=== PATIENT | female | born 1940 | race Caucasian/White ===

== ENCOUNTER 2024-06-09 11:28 | Inpatient (IN) | payer OTHER, SELFPAY ==
[2024-06-09] VITALS (26 sets, daily range): BP systolic 98–160; BP diastolic 49–85; PULSE 90; O2SAT 95–96; BMI 27.6
--- NOTE | 2024-06-09 07:24 | ED.GENMED ---
History of Present Illness
<MARIBEL Bledsoe - Last Filed: 06/09/24 10:47>
General
Chief Complaint: Musculo-Skeletal Complaint
Source: patient
Exam Limitations: none
Time Seen by Provider: 06/09/24 07:16
Nursing documentation reviewed up to this point in time: agreed with
History of Present Illness
History of Present Illness:
Patient is an 83 old female who was brought by EMS. Patient reports she was walking her dog and tripped and fell landing face first. She tried to break her fall with her left wrist. She complains of left wrist pain and left hip pain. A neighbor
heard her dog crying and called EMS. She is on aspirin no other blood thinners. She denies hitting her head denies any headache but does report she landed face first as well. She is right-hand dominant. She denies any neck pain.
Past History
<MARIBEL Bledsoe - Last Filed: 06/09/24 10:47>
Past History
ED Past Medical History: CAD, HTN, Hypercholesterolemia, NIDDM, NV, Hypothyroidism and Other (Graves' disease)
ED Past Surgical History: Appendectomy, Cardiac (Cardiac stenting, carotid artery angioplasty), Cholecystectomy, Orthopedic (R total hip Replacement) and Tonsilectomy
Social History
Tobacco: Former smoker
Alcohol: Occasional
Drug: None
Personal:
Living: alone
Family History
Family History: Negative Diabetes, Hypertension, Early CAD, Asthma or Cancer
Review of Systems
<MARIBEL Bledsoe - Last Filed: 06/09/24 10:47>
Review of Systems
Allergies reviewed?: Yes
Other source history: family
All Other Systems: ROS reviewed and negative except as documented in HPI and ROS
Constitutional: Reports no symptoms
Respiratory: Reports no symptoms
Cardiac: Reports no symptoms
ABD/GI: Reports no symptoms; Denies nausea or vomiting
: Reports no symptoms
Musculoskeletal: Reports other (Left wrist left hip pain)
Skin: Reports no symptoms
Neurological: Reports no symptoms; Denies headache
Psychiatric: Reports no symptoms
Phy Exam
<MARIBEL Bledsoe - Last Filed: 06/09/24 10:47>
General Physical Exam
General Presentation: no apparent distress
General age: appears stated age
General Skin: warm and dry
General Habitus: elderly
General Mental: alert
General Hydration: appears well hydrated
Cardiovascular Exam
Cardiovascular Exam: regular rate/rhythm, no murmur and normal peripheral pulses
Neurological Exam
Neurological Exam: alert and oriented x3
[place] Coma Scale
Eye Opening: Spontaneous
Verbal Response: Oriented
Motor Response: Obeys Commands
GCS Total Score: 15
Musculoskeletal Exam
Musculoskeletal Exam: other (No obvious head injury no bony C-spine tenderness left wrist with obvious deformity strong pulses ecchymosis tender throughout, no abrasions or lacerations left lower extremity shortened externally rotated pain with any
range of motion normal sensation to both wrist and hip and distal extremties )
Skin Exam
Skin Exam: normal color and warm/dry
Psychiatric Exam
Psychiatric Exam: normal mood/affect
<Ian Bar, DO - Last Filed: 06/09/24 09:50>
[place] Coma Scale
GCS Total Score: 15
Course
<MARIBEL Bledsoe - Last Filed: 06/09/24 10:47>
Orders/Labs/Results
Orders:
Orders
06/09/24 07:16
HYDROmorphone [Dilaudid] 0.5 mg IV NOW STA
Ondansetron Injectable [Zofran] 4 mg IV NOW STA
06/09/24 07:19
CR Hip - LT w/wo Pel 2-3 Vw* Urgent
Comment:
Reason For Exam: s/p fall/pain
Include a pelvis x-ray?: Yes
CR Wrist - Left Min 3 Views Urgent
Comment:
Reason For Exam: s/p fall/pain
06/09/24 07:25
CT Head W/o Iv Contrast Urgent
Comment:
Reason For Exam: trauma
06/09/24 07:26
Electrocardiogram (*1) Stat
Reason for Study: Other
Other Reason for Exam: chest pain
Cardiac Monitoring- Treatment ONCE
EKG- Treatment ONCE
06/09/24 07:30
Basic Metabolic Panel Urgent
Complete Blood Count/With Diff Urgent
06/09/24 08:24
Comprehensive Metabolic Panel Urgent
06/09/24 08:41
HYDROmorphone [Dilaudid] 0.5 mg IV NOW STA
06/09/24 09:16
Propofol [Diprivan] 20 ml .ROUTE .STK-MED
06/09/24 09:47
Wrist, Left 2 Views CR [CR Wrist - Left Min 2 Views] Urgent
Comment:
Reason For Exam: post reduction portable
Abnormal Lab Results
06/09/24 06/09/24
07:30 08:24
RBC 3.68 L 10^6/uL
(4.20-5.40)
Hgb 11.7 L g/dL
(12.0-16.0)
Hct 34.2 L %
(37.0-47.0)
MCH 31.8 H pg
(27.0-31.0)
MPV 11.6 H fL
(7.4-10.4)
Carbon Dioxide 20 L mmol/L
(22-30)
BUN 22 H mg/dl 20 H mg/dl
(7-17) (7-17)
Glucose 112 H mg/dl 113 H mg/dl
(70-99) (70-99)
06/09/24 07:30
06/09/24 08:24
Vital Signs
Initial and Last Documented VS:
Initial Vital Signs
BP
145/62
06/09/24 06:54
Last Documented Vital Signs
Temp Pulse Resp BP Pulse Ox
98.1 F 77 19 110/53 96
06/09/24 10:01 06/09/24 10:01 06/09/24 10:01 06/09/24 10:01 06/09/24 10:01
[employer] consulted with Physician
[employer] consulted with physician?: Yes
Name of Physician Consulted: Yosvany
<Ian Bar, DO - Last Filed: 06/09/24 09:50>
Orders/Labs/Results
Orders:
Orders
06/09/24 07:16
HYDROmorphone [Dilaudid] 0.5 mg IV NOW STA
Ondansetron Injectable [Zofran] 4 mg IV NOW STA
06/09/24 07:19
CR Hip - LT w/wo Pel 2-3 Vw* Urgent
Comment:
Reason For Exam: s/p fall/pain
Include a pelvis x-ray?: Yes
CR Wrist - Left Min 3 Views Urgent
Comment:
Reason For Exam: s/p fall/pain
06/09/24 07:25
CT Head W/o Iv Contrast Urgent
Comment:
Reason For Exam: trauma
06/09/24 07:26
Electrocardiogram (*1) Stat
Reason for Study: Other
Other Reason for Exam: chest pain
Cardiac Monitoring- Treatment ONCE
EKG- Treatment ONCE
06/09/24 07:30
Basic Metabolic Panel Urgent
Complete Blood Count/With Diff Urgent
06/09/24 08:24
Comprehensive Metabolic Panel Urgent
06/09/24 08:41
HYDROmorphone [Dilaudid] 0.5 mg IV NOW STA
06/09/24 09:16
Propofol [Diprivan] 20 ml .ROUTE .STK-MED
06/09/24 09:47
Wrist, Left 2 Views CR [CR Wrist - Left Min 2 Views] Urgent
Comment:
Reason For Exam: post reduction portable
Abnormal Lab Results
06/09/24 06/09/24
07:30 08:24
RBC 3.68 L 10^6/uL
(4.20-5.40)
Hgb 11.7 L g/dL
(12.0-16.0)
Hct 34.2 L %
(37.0-47.0)
MCH 31.8 H pg
(27.0-31.0)
MPV 11.6 H fL
(7.4-10.4)
Carbon Dioxide 20 L mmol/L
(22-30)
BUN 22 H mg/dl 20 H mg/dl
(7-17) (7-17)
Glucose 112 H mg/dl 113 H mg/dl
(70-99) (70-99)
06/09/24 07:30
06/09/24 08:24
Vital Signs
Initial and Last Documented VS:
Initial Vital Signs
BP
145/62
06/09/24 06:54
Last Documented Vital Signs
Temp Pulse Resp BP Pulse Ox
98.1 F 77 19 110/53 96
06/09/24 10:01 06/09/24 10:01 06/09/24 10:01 06/09/24 10:01 06/09/24 10:01
Procedures
<MARIBEL Bledsoe - Last Filed: 06/09/24 10:47>
Splinting/Sling Placement
Left Arm:
Pre-splint extermity exam: neurovascular intact
Type of splint: sugar-tong
Splint material: fiberglass
Splint checked by provider?: Yes
Normal distal neurovascular exam?: Yes
<Ian Bar DO - Last Filed: 06/09/24 09:50>
Moderate Sedation
ASA Risk Score: Class III
Chart and allergies reviewed: Yes
Consent for anesthesia obtained: Yes
Time out completed (validating right patient & procedure): Yes
Moderate Sedation Start Time(when first medication is given): 09:36
History of difficult intubation: No
Airway free of obstruction: Yes
Patient has a gag reflex: Yes
Patient is able to open mouth: Yes
Patient has no dentures: Yes
Patient has no loose teeth: Yes
Medication administered by Provider during Moderate Sedation: IV Propofol (mg)
Total dose administered: 50
Time drug administered: 09:36
Moderate Sedation Procedure End Time: 09:46
Joint/Fracture Reduction
left distal ulna and radial fracture:
Indication for procedure:: left distal ulna and radial fracture
Procedure completed by: Ian Bar DO
Consent form signed: Yes
Joint reduced: with anesthesia sedation
Injury was: closed
Further treatement: needs further treatment
Post reduction exam: stable
Capillary Refill: normal
Peripheral Pulses: radial (left): 2+
<MARIBEL Bledseo - Last Filed: 06/09/24 10:47>
MDM/Problems Addressed
Differential Diagnosis Includes:
Not limited to hip dislocation versus fracture, wrist fracture, head injury
MDM/Problems Addressed:
Patient is an 83-year-old female who lives alone was walking outside with her dog out of her house describes mechanical fall falling face forward. She denies hitting her head however with age CT of head was done and unremarkable. She complains of
left wrist pain and left hip pain. Patient with obvious deformity to left wrist and left hip is shortened and externally rotated.
X-ray of hip confirms left hip fracture(acute comminuted and impacted intertrochanteric fracture of left femur). Wrist x-ray shows acute mildly displaced impacted angulated fracture of distal radius and ulna. Head CT negative. Case reviewed with
orthopedics(patient had previous surgery by Dr. Miller to right hip however this was over 10 to 15 years ago. I did speak with Dr. Lu of [facility] orthopedics however since such length since prior Ortho eval by this group will assign
patient to unassigned Ortho. I did speak with Dr. Santana. He was able to visualize images of films. he does recommend reduction of left wrist. Moderate sedation was given by Dr. Bar and left wrist was successfully reduced.
Regarding hip fracture patient may be able to go to the OR later this morning as she has not needed anything since 3 AM
Patient is on aspirin only no other blood thinners. Family aware of diagnosis and plan of care and/or treatment for hip.
Labs reviewed.
Chronic conditions affecting care:
htn hyperlipidemia diabetes previous NV
<MARIBEL Bledsoe - Last Filed: 06/09/24 10:47>
*Radiology
Radiology exam reviewed: radiology read reviewed
*Pulse Oximetry
Patient hypoxic: no
*Critical Care Note
Total Time (30-74mins, 75-104mins- exclusive of procedures): Not Applicable
<MARIBEL Bledsoe - Last Filed: 06/09/24 10:47>
Patient Management
Discussion with other providers: Brick Paver (DR Santana )
ED Attending Note
<MARIBEL Bledsoe - Last Filed: 06/09/24 10:47>
-
Portions of this chart may have been created with voice recognition software.� Occasional wrong word or��sound alike� substitutions may have occurred due to the inherent limitations of voice recognition software.
<Ian Bar, DO - Last Filed: 06/09/24 09:50>
ED Attending Note
Patient seen and examined by attending physician: Yes
I performed the substantive portion of visit, reviewed & personally made and approve the management plan that is documented in note by myself or ZINA.: Yes
ED Attending Note:
I have seen and evaluated the patient with a [id number] encounter. I have spoken to the advance practicer provider and involved in the medical history, the physical exam, medical decision making.
Evaluation and management service: agree unless noted differently below.
Results interpretation: agree unless noted differently below.
Focused HPI: 83-year-old female presenting with a trip and fall. Patient complaining of left wrist pain and left hip pain. Patient has clear deformity to left leg and left wrist.
Physical exam: Uncomfortable. Deformity to left wrist. Sensation grossly intact. Shortened and rotated left leg but neurovascularly intact
Medical Decision Making: Will obtain hip and wrist x-ray and will likely need sedation for wrist reduction
Discharge Plan
Departure
Patient Disposition: Admit
Date of Disposition: 06/09/24
Time of Disposition: 09:51
Admit to: Med/Surg
Admit to doctor: hospitalist
Presentation/result/management discussed w/ accepting MD/DO: Hospitalist
Patient with high blood pressure during this ER visit?: Yes
Condition: Fair
Covid-19: Not Applicable
Discharge Problem:
Closed fracture of left hip, left wrist fracture
Prescriptions:
No Action
aspirin 81 MG tablet,delayed release (DR/EC)
81 mg PO DAILY
metoprolol tartrate 50 MG tablet
50 mg PO DAILY
alendronate [Fosamax] 70 mg Tablet
70 mg PO WE
Theragen Tablet
1 tab PO DAILY
amlodipine [Norvasc] 5 mg Tablet
5 mg PO DAILY
calcium carbonate [Calcium 600] 600 mg calcium (1,500 mg) Tablet
600 mg PO DAILY
sertraline 50 mg Tablet
50 mg PO DAILY
ICaps AREDS 4,296 mcg-226 mg-90 mg Capsule
1 cap PO BID
cholecalciferol (vitamin D3) [Vitamin D3] 50 mcg (2,000 unit) Tablet
50 mcg PO DAILY
rosuvastatin 10 MG tablet
5 mg PO QPM
Referrals:
Anthony Candelaria, [Family Provider] -
Interventions
Interventions:
*Risk Screen - Suicide Last Done: 06/09/24 07:00
*General Assessment Last Done: 06/09/24 07:00
*Neglect/Abuse Screening Last Done: 06/09/24 07:00
ED- Fall Risk Assessment Last Done: 06/09/24 07:08
*ED COVID-19 Vaccine History Last Done: 06/09/24 07:00
ED-Musculoskeletal Assessment Last Done: 06/09/24 07:08
ED- Neurological Assessment Last Done: 06/09/24 07:08
Discharge Date and Time
Print Language: SLOVENIAN
[2024-06-09] MEDS: DILAUDID 0.5 MG IV ×2 (07:25→08:49)
[2024-06-09] MEDS: ZOFRAN 4 MG IV (07:26)
[2024-06-09 07:48] LABS: % Basophils 0.5 % (0-2); % Eosinophils 2.1 % (0-6); % Immature Granulocytes 0.4 % (0-0.5); % Lymphocytes 33.3 % (20.5-51.1); % Monocytes 7.4 % (1.7-9.3); % Neutrophils 56.3 % (42.2-75.2); Absolute Eosinophils 0.2 10^3/uL (0-0.7); Absolute Lymphocytes 2.6 10^3/uL (1.2-3.4); Absolute Monocytes 0.6 10^3/uL (0.1-0.6); Absolute Neutrophils 4.4 10^3/uL (1.4-6.5); Hematocrit 34.2 % (37.0-47.0); Hemoglobin 11.7 g/dL (12.0-16.0); Mean Corp Hgb Conc. 34.2 g/dL (33.0-37.0); Mean Corpuscular Hgb 31.8 pg (27.0-31.0); Mean Corpuscular Volume 92.9 fL (81.0-99.0); Mean Platelet Volume 11.6 fL (7.4-10.4); Nucleated Red Blood Cells % 0 %; Platelet Count 180 10^3/uL (130-400); Red Blood Cell Count 3.68 10^6/uL (4.20-5.40); White Blood Cell Count 7.8 10^3/uL (4.8-10.8)
[2024-06-09 07:56] LABS: Blood Urea Nitrogen 22 mg/dl (7-17); Calcium 9.8 mg/dl (8.4-10.2); Carbon Dioxide 22 mmol/L (22-30); Chloride 105 mmol/L (98-107); Estimated Creatinine Clearance 41 ml/min; Glucose 112 mg/dl (70-99); Sodium 141 mmol/L (135-145); eGFR > 60.00
[2024-06-09 08:55] LABS: ALT (SGPT) 18 U/L (0-35); AST (SGOT) 28 U/L (14-36); Albumin 4.5 g/dl (3.5-5.0); Alkaline Phosphatase 104 U/L (38-126); Blood Urea Nitrogen 20 mg/dl (7-17); Calcium 9.9 mg/dl (8.4-10.2); Carbon Dioxide 20 mmol/L (22-30); Chloride 106 mmol/L (98-107); Estimated Creatinine Clearance 41 ml/min; Glucose 113 mg/dl (70-99); Sodium 140 mmol/L (135-145); Total Bilirubin 0.9 mg/dl (0.2-1.3); Total Protein 6.5 g/dl (6.3-8.2); eGFR > 60.00
--- NOTE | 2024-06-09 11:10 | HPS.HSE ---
Family Physician
-
Family Physician: Anthony Candelaria
Chief Complaint
-
fall
History of Present Illness
83yo F with PMHx of CAD, CEA, DM controlled on diet, osteoporosis, HTN, graves disease brought to the hospital after the fall w/o LOC, when she tripped while walking with the dog. In ED found L radial and ulnar Fx, that was reduced in ED as well as
comminuted and impacted intertrochanteric Fx of L femur
Medical History
Past Medical History
Past Medical History: Reports Other
Additional Past Medical History:
See HPI
Past Surgical History: Reports None
Social History
Tobacco: Former Smoker
Alcohol: None
Drug: None
Family History
Family History: Not pertinent
Allergies / Home Medications
Allergies reflects when Allergies were last updated in [facility].
Home Medications with original date entered in [facility]
Allergy/Medication List:
Allergies
Allergy/AdvReac Type Severity Reaction Status Date / Time
No Known Allergies Allergy Verified 06/09/24 07:07
Home Medications
aspirin 81 mg tablet,delayed release 81 mg PO DAILY Blood clot prevention/tx 11/12/10
metoprolol tartrate 50 mg tablet 50 mg PO DAILY Blood pressure 06/17/21
alendronate 70 mg tablet (Fosamax) 70 mg PO WE osteoporosis 06/09/24
amlodipine 5 mg tablet (Norvasc) 5 mg PO DAILY blood pressure 06/09/24
calcium carbonate (Calcium 600) 600 mg PO DAILY supplement 06/09/24
cholecalciferol (vitamin D3) 50 mcg (2,000 unit) tablet (Vitamin D3) 50 mcg PO DAILY supplement 06/09/24
rosuvastatin 10 mg tablet 5 mg PO QPM hyperlipidemia 06/09/24
sertraline 50 mg tablet 50 mg PO DAILY depression/anxiety 06/09/24
therapeutic multivitamin 1 tab PO DAILY supplement 06/09/24
vitamins A,C,P-fmei-xjiiwd 4,296 mcg-226 mg-90 mg capsule 1 cap PO BID supplement 06/09/24
Review of Systems
-
History Source: Patient
A 12 point ROS was completed and negative except as noted: Yes
Physical Exam
Vital Signs
Vital Signs
Temp Pulse Resp BP Pulse Ox
97.8 F 75 16 125/49 96
06/09/24 10:30 06/09/24 10:30 06/09/24 10:30 06/09/24 10:30 06/09/24 10:30
Physical Exam
General: No Apparent Distress
HEENT: NormoCephalic
Respiratory: Clear
Cardiac: S1/S2 and Regular Rhythm
GI: Soft, Non Tender and Non Distended
Musculoskeletal: No Clubbing, No Cyanosis and No Edema
Skin: Warm
Neuro: Awake, Alert, Oriented and AO x 3
Psych: Calm
Laboratory Results
-
06/09/24 07:30
06/09/24 08:24
Laboratory Results
Total Bilirubin 0.9 mg/dl (0.2-1.3) 06/09/24 08:24
AST 28 U/L (14-36) 06/09/24 08:24
ALT 18 U/L (0-35) 06/09/24 08:24
Alkaline Phosphatase 104 U/L (38-126) 06/09/24 08:24
Impression/Plan
-
A/P:
#comminuted and impacted intertrochanteric Fx of L femur
#L radial and ulnar Fx
ARISCAT score 1.6% - low risk for postOP pulmonary complications
For cardiac risk with PMHx of CAD and possible FL - recommend cardiology eval for the non-urgent surgery
If surgery is urgent - recommend postOP cardio followup with Echo and telemetry, but my percieved cardiac risk will be inermediate-high
Pain mgmt
Ortho cosnult
PT/OT
cont LUE sling
EKG SR without ST changs or TWI, no concern for ACS
#Fall
Head CT without acute findings
#Hx of NSTEMI vs myocarditis
s/p cardiac cath in 2020 without culpit lesion
cont ASA, BB, statin
#PreDM vs DM
Insulin SS as needed with accuchecks
Check HgbA1c
#Graves disease
check TSH
cont Synthroid
#HLD
#Essential HTN
#Presbycusis
#Anxieety/depression d/o
#Osteoporosis
cont home meds
DVT ppx hep
Full code - discussed with patient
I have spent at least 78min reviewing chart, test results, communication with cosnultants and direct patient care
--- NOTE | 2024-06-09 11:50 | CON.ORTHO ---
Consultation - Orthopedics
History
HPI: 83-year-old female presented to the emergency department status post mechanical fall at home. She was subsequently diagnosed with a left distal radius fracture and a displaced left intertrochanteric femur fracture. She underwent closed
reduction of left wrist the emergency department. She was admitted to the hospitalist service and orthopedics was consulted for further evaluation and treatment. Patient reports manage she is quite active at baseline but does use a cane for
ambulatory assistance. She is independent lives at home by herself. Her daughter is at her bedside this morning. She is complaining of pain in the left hip as well as left wrist although she does report wrist pain is improved since close
reduction. She does have a history of right total hip arthroplasty performed by Dr. Miller in the past.
Allergies / Home Medications
Past medical history: Coronary artery disease, hypertension, hypercholesterolemia, czu-[id number]-rhynwfcij diabetes, NSTEMI, hypothyroidism, Graves'
Past surgical history: Appendectomy, cardiac stent, cholecystectomy, right total hip arthroplasty, tonsillectomy
Social history: Lives alone at home. Former smoker
Family history: Not pertinent
Allergy/AdvReac Type Severity Reaction Status Date / Time
No Known Allergies Allergy Verified 06/09/24 07:07
�Medication �Instructions �Recorded
aspirin 81 mg tablet,delayed 81 mg PO DAILY Blood clot 11/12/10
release prevention/tx
metoprolol tartrate 50 mg tablet 50 mg PO DAILY Blood pressure 06/17/21
alendronate 70 mg tablet (Fosamax) 70 mg PO WE osteoporosis 06/09/24
amlodipine 5 mg tablet (Norvasc) 5 mg PO DAILY blood pressure 06/09/24
calcium carbonate (Calcium 600) 600 mg PO DAILY supplement 06/09/24
cholecalciferol (vitamin D3) 50 50 mcg PO DAILY supplement 06/09/24
mcg (2,000 unit) tablet (Vitamin
D3)
rosuvastatin 10 mg tablet 5 mg PO QPM hyperlipidemia 06/09/24
sertraline 50 mg tablet 50 mg PO DAILY depression/anxiety 06/09/24
therapeutic multivitamin 1 tab PO DAILY supplement 06/09/24
vitamins A,C,V-vgqg-dwvqch 4,296 1 cap PO BID supplement 06/09/24
mcg-226 mg-90 mg capsule
Vital Signs / Lab Results
Temp Pulse Resp BP Pulse Ox
97.8 F 75 16 125/49 96
06/09/24 10:30 06/09/24 10:30 06/09/24 10:30 06/09/24 10:30 06/09/24 10:30
06/09/24 07:30
06/09/24 08:24
10 point review systems reviewed and negative unless otherwise stated
General: Pleasant, no acute distress at rest, hard of hearing
Musculoskeletal left lower extremity
Skin intact, extremity shortened externally rotated
There is palpation of her hip lateral trochanteric flare
No palpable ipsilateral knee effusion
Positive EHL, FHL, ankle dorsiflexion completed flexion
Distal extremity warm and pink
Left upper extremity in sugar-tong splint
Exposed fingers warm sensate and mobile
No other areas of bony tenderness palpation or crepitation of long bones and joints of tissue examination
Diagnostic studies
X-rays left hip reviewed by myself shows a displaced left intertrochanteric femur fracture. X-rays left wrist show intra-articular displaced distal radius fracture with improvement in alignment after closed reduction and splinting
Assessment / Plan
83-year-old female status post mechanical fall with left distal radius fracture status post closed reduction and splinting as well as left displaced intertrochanteric femur fracture. A long detail discussion the patient as well as her family at
bedside regarding diagnosis and treatment options. Specifically regarding the hip, we discussed treatment options. My recommendation proceed with cephalomedullary nail fixation. We discussed risks benefits and alternatives to surgery. Discussed
the usual expected perioperative postoperative course. After discussion verbal consent was obtained we will plan to obtain written informed consent prior to surgery. With regards to left distal radius fracture, I did discussed both surgical and
nonsurgical options with them. They will continue to give some thought. We did discuss the possibility of early mobilization perhaps some improvement with regards to use of a walker immobilization with open reduction terminal fixation compared to
splinting/casting. We will have
further discussion regarding this after operative fixation of the left hip.
Nonweightbearing left lower extremity
Nonweightbearing left upper extremity in splint
N.p.o.
Hold anticoagulation
Medical management per primary team
Plan: 2 OR today for operative fixation left hip fracture and all indicated procedures pending OR availability and medical clearance
--- NOTE | 2024-06-09 13:27 | OR.RPT ---
Operative Report
Operative Report
Anesthesia Type:
Spinal
Operative Indications:
Left intertrochanteric femur fracture
Operative Findings :
Same with impaction and significant comminution
Complications:
None
Implants:
130 degree x 10 mm short gamma nail, 90 mm cephalomedullary lag screw, 35 mm x 5 mm distal interlocking screw
Procedure and Technique:
Insertion left short cephalomedullary nail
INDICATIONS FOR PROCEDURE:
83-year-old patient presented status post mechanical fall with complaints of left hip pain left wrist pain. She was ultimately diagnosed with a displaced left distal radius fracture as well as a displaced left intertrochanteric femur fracture.
She underwent closed reduction of left wrist fracture and orthopedics was consulted for further evaluation and treatment. I had a long discussion with the patient as well as her daughters at bedside regarding diagnosis and treatment options.
Ultimately surgical intervention was recommended. We discussed risks benefits and alternatives. We discussed the usual and expected perioperative postoperative course. After discussion written informed consent was obtained.
OPERATIVE PROCEDURE:
Patient was seen and identified in the preoperative holding area. Operative extremity was marked. Patient was taken to the operating room and provided anesthesia by the anesthesia team. Placed supine on fracture table. Nonoperative extremity was
placed in a scissored position and padded with a gel pad to the contralateral post of the fracture table. Operative extremity was placed in a well-padded fracture boot. Biplanar fluoroscopy confirmed appropriate reduction after axial traction,
adduction and slight internal rotation of the fracture. There is noted to be marked impaction and comminution. operative extremity was then prepped and draped in normal sterile fashion. Timeout was performed again identifying the operative
extremity correctly. Preoperative antibiotics were addressed.
Approximately 5 cm incision was made 2 fingerbreadths proximal to the greater trochanter. Sharp dissection was carried through skin and subcutaneous tissues deep fascial layers. Guidepin was then inserted under biplanar fluoroscopic guidance
through the greater trochanter in accordance with the implants operative technique. This was inserted to a depth just distal to the lesser trochanter. Proximal opening reamer was then utilized. A 130 degree short nail was then inserted to the
appropriate depth. Trocar was then inserted through the aiming arm. Sharp dissection was then carried through skin and subcutaneous tissues as well as deep fascial layers. Guidewire was inserted through the trocar into the femoral neck and head.
Appropriate position was confirmed under biplanar fluoroscopy. Attention was made to minimize the tip apex distance. Measurements were obtained for the cephalomedullary screw. Cannulated drill was then drilled to the appropriate depth followed by
the insertion of cannulated cephalomedullary screw. Appropriate final position of the screw within the confines of the femoral neck and head were confirmed again on biplanar fluoroscopy. Setscrew was deployed. There is noted to be mild valgus
alignment of the fracture which was acceptable. Additional trocar was then inserted through the aiming arm for the distal interlocking screw. Sharp dissection was carried through skin, subcutaneous tissues and deep fascial layers. Appropriate
length interlocking screw was then drilled and inserted. Final appropriate positioning was confirmed again on biplanar fluoroscopy. Satisfied with the extent of surgery, wounds were copiously irrigated with normal saline solution and closed in a
layered fashion utilizing 0 Vicryl for deep fascial layer, 2-0 Vicryl for subcu cutaneous layer and elisa for skin. Aquacel dressings were applied. Anesthesia was reversed and patient was taken to the operating room in stable condition.
Postoperative plans include weightbearing to the patient's tolerance operative extremity. Recommend Lovenox renally dosed x 28 days daily for DVT prophylaxis. Will have further discussion with the patient and family regarding definitive treatment
for left distal radius fracture.
Disposition:
PACU stable condition
[2024-06-09 13:31] LABS: Glucose - Point of Care 124 mg/dl (70-99)
[2024-06-09] MEDS: NOVOLOG FLEXPEN-LOW RESISTANCE SC (14:00)
[2024-06-09] MEDS: NSS 1000 IV (14:11)
--- NOTE | 2024-06-09 14:16 | CON.CAR ---
Addendum entered and electronically signed by Anthony Alvarez MD 06/09/24 17:06:
I saw and examined the patient.
The HEAD OF BUSINESS DEVELOPMENT's note was reviewed and I agree with the note.
83-year-old woman with history of coronary artery disease, previous history of coronary stenting (most recent cath 2020 with patent stent and nonobstructive CAD), hypertension and diabetes who was walking her dog and states she tripped due to a high
curb. No syncope. She sustained fracture of left wrist and left hip. She underwent reduction of left wrist fracture and gamma nail to the left hip by Ortho. We are asked to see postoperatively due to past history of coronary disease noted above
patient with no complaints of chest pain or shortness of breath no palpitations lightheadedness or dizziness. Currently hemodynamically stable
-Continue aspirin
-Continue metoprolol
-Monitor on telemetry.
Original Note:
Consultation
Consultation Request
Date/Time Consultation Requested: 06/09/2024 10:30
Date/Time Consultation Performed: 06/09/2024 14:00
Requesting Provider: Dr. De La Rosa
Performing Provider: MARIBEL Hebert for Dr. Alvarez
Reason for Consultation: Preop risk assessment
Medical History
-
Chief Complaint: Mechanical fall with left wrist and left hip pain
History of Present Illness:
Faith Martinez is an 83-year-old female (known to Dr. Solano, her primary superintendent container terminal), with coronary artery disease, hypertension, dyslipidemia, type 2 diabetes mellitus, Graves' disease, osteoporosis, and ambulatory dysfunction who presented
to the emergency department this morning after she sustained a mechanical fall. She was walking her dog (18 year old Guillermo [employer] named Mikayla) when she tripped. She endorsed left wrist and left hip pain. Her wrist was reduced in the
emergency department. It is currently in a sling. She is currently status post gamma nail to the left hip. She is having no chest pain or shortness of breath.
Past Medical History
Past Medical History: CAD, HTN, Hypercholesterolemia, Hyperthyroidism (Graves' disease), NIDDM and Other (Osteoporosis, ambulatory dysfunction)
Past Surgical History: Appendectomy, Cholecystectomy and Orthopedic (Hip replacement)
Social History
Tobacco: Former Smoker
Alcohol: None
Drug: None
Living: Alone
Employment: Retired
Family History
Family History: Reviewed & Not Pertinent
Allergies / Home Medications
Allergy/AdvReac Type Severity Reaction Status Date / Time
No Known Allergies Allergy Verified 06/09/24 07:07
�Medication �Instructions �Recorded �Confirmed �Type
aspirin 81 mg tablet,delayed 81 mg PO DAILY Blood clot 11/12/10 06/09/24 History
release prevention/tx
metoprolol tartrate 50 mg tablet 50 mg PO DAILY Blood pressure 06/17/21 06/09/24 History
alendronate 70 mg tablet (Fosamax) 70 mg PO WE osteoporosis 06/09/24 06/09/24 History
amlodipine 5 mg tablet (Norvasc) 5 mg PO DAILY blood pressure 06/09/24 06/09/24 History
calcium carbonate (Calcium 600) 600 mg PO DAILY supplement 06/09/24 06/09/24 History
cholecalciferol (vitamin D3) 50 50 mcg PO DAILY supplement 06/09/24 06/09/24 History
mcg (2,000 unit) tablet (Vitamin
D3)
rosuvastatin 10 mg tablet 5 mg PO QPM hyperlipidemia 06/09/24 06/09/24 History
sertraline 50 mg tablet 50 mg PO DAILY depression/anxiety 06/09/24 06/09/24 History
therapeutic multivitamin 1 tab PO DAILY supplement 06/09/24 06/09/24 History
vitamins A,C,E-vupw-abacoz 4,296 1 cap PO BID supplement 06/09/24 06/09/24 History
mcg-226 mg-90 mg capsule
Review of Systems
-
History Source: Patient
All other systems: Negative unless noted
Constitutional: No Symptoms
EENT: No Symptoms
Respiratory: No Symptoms
Cardiac: No Symptoms
Abdomen/GI: No Symptoms
: No Symptoms
Musculoskeletal: Joint Pain (Left wrist and left hip)
Skin: No Symptoms
Neurological: No Symptoms
Endocrine: No Symptoms
Hematologic/Lymphatic: No Symptoms
Physical Exam
Vital Signs
Temp Pulse Resp BP Pulse Ox
97.2 F 78 16 129/54 98
06/09/24 14:05 06/09/24 14:15 06/09/24 14:15 06/09/24 14:00 06/09/24 14:05
Lab Results
06/09/24 07:30
06/09/24 08:24
Physical Exam
General: Well Developed, Well Nourished, No Apparent Distress and Comfortable
HEENT: Normocephalic and Anicteric
Respiratory: Clear and Non Labored Respirations
Cardiac: S1/S2 and Regular Rhythm; Negative Peripheral Edema
Breast: Deferred by me
GI: Soft, Non Tender, Non Distended and Normal Bowel Sounds
Rectal: Deferred by Provider
Genito-urinary: No Costovertebral Tender
Musculoskeletal: No Clubbing, No Cyanosis and No Edema
Skin: Warm and Dry
Neuro: AO x 3
Hematologic/Lymphatic: No Lymphadenopathy
Psych: Calm
Impression / Plan
-
Mechanical fall with left wrist fracture status post left wrist reduction
Mechanical fall with left hip fracture status post cephalomedullary nail
CAD
-SHIRLEY to RCA
-Stable without chest pain
-Continue aspirin
Hypertension, on amlodipine and metoprolol tartrate (confirmed with her this is once daily)
Dyslipidemia, during her prior hospitalization we recommended she increase her rosuvastatin to 10 mg daily, goal LDL <70
Type 2 diabetes mellitus, HbA1c pending, per primary
Former smoker, quit 2019, continue full cessation
Graves' disease
Data Reviewed
-
EKG: Report Reviewed by me (Sinus rhythm with sinus arrhythmia, rate 69)
Radiology: Report Reviewed by me (Wrist: Acute, mildly displaced, impacted, and angulated fractures of the distal radius and ulna as detailed above. No dislocation; Left hip: Acute comminuted and in impacted intertrochanteric fracture of the left
femur. No dislocation.)
Labs: Labs Reviewed by me
Old Records: Reviewed
[2024-06-09] MEDS: TYLENOL 650 MG PO (15:01)
--- NOTE | 2024-06-09 15:40 | PTCARENOTE ---
Pt received from the PACU via bed. Transport was w/o incident. Pt is AAOx3, VENETIE IRA, HR bounding sl Tachy at 108 apically, Resp. easy, pulse ox 100% on 2L via nc. Pt's left hip and left upper thigh with Primaseal dressings scant bloody drainage noted on
each. No new current bleeding noted. Pt's left arm with Michael wrap and sling intact. VSS, Pt is afebrile. Pt instructed on plan of care. Pt verbalized understanding of instructions. Call san is within reach.
[2024-06-09 17:34] LABS: Free T4 1.71 ng/dl (0.78-2.19)
[2024-06-09 17:39] LABS: Glucose - Point of Care 183 mg/dl (70-99)
[2024-06-09] MEDS: ANCEF 5 IV (17:41)
[2024-06-09] MEDS: CRESTOR 5 MG PO (17:46)
[2024-06-09] MEDS: ROXICODONE 10 MG PO ×2 (17:46→23:35)
[2024-06-09] MEDS: NOVOLOG FLEXPEN-LOW RESISTANCE 1 UNITS SC (17:47)
[2024-06-09] MEDS: COLACE 100 MG PO (20:48)
[2024-06-09] MEDS: NSS IV (21:15)
[2024-06-09 21:35] LABS: Glucose - Point of Care 250 mg/dl (70-99)
[2024-06-10] VITALS (7 sets, daily range): BP systolic 109–128; BP diastolic 57–75; PULSE 90; O2SAT 95
[2024-06-10] MEDS: ANCEF 5 IV (02:48)
[2024-06-10] MEDS: DILAUDID 0.25 MG IV (02:49)
[2024-06-10 07:22] LABS: Glucose - Point of Care 147 mg/dl (70-99)
[2024-06-10 07:49] LABS: ALT (SGPT) 52 U/L (0-35); AST (SGOT) 81 U/L (14-36); Albumin 3.8 g/dl (3.5-5.0); Alkaline Phosphatase 91 U/L (38-126); Blood Urea Nitrogen 26 mg/dl (7-17); Calcium 8.7 mg/dl (8.4-10.2); Carbon Dioxide 22 mmol/L (22-30); Chloride 102 mmol/L (98-107); Estimated Creatinine Clearance 37 ml/min; Glucose 143 mg/dl (70-99); HDL Cholesterol 71 mg/dl; LDL Cholesterol, Calculated 55 mg/dl; Magnesium 2.1 mg/dl (1.6-2.3); Potassium 4.3 mmol/L (3.5-5.1); Sodium 137 mmol/L (135-145); Total Bilirubin 0.5 mg/dl (0.2-1.3); Total Cholesterol 143 mg/dl (50-199); Total Protein 5.8 g/dl (6.3-8.2); Triglyceride 87 mg/dl (10-149); Very Low Density Lipoprotein 17 mg/dl (0-30); eGFR 55.21
[2024-06-10 07:54] LABS: % Basophils 0.1 % (0-2); % Immature Granulocytes 0.6 % (0-0.5); % Lymphocytes 8.7 % (20.5-51.1); % Monocytes 9.3 % (1.7-9.3); % Neutrophils 81.3 % (42.2-75.2); Absolute Immature Granulocytes 0.1 10^3/uL (0-0.05); Absolute Lymphocytes 0.9 10^3/uL (1.2-3.4); Absolute Neutrophils 8.7 10^3/uL (1.4-6.5); Hematocrit 27.2 % (37.0-47.0); Mean Corp Hgb Conc. 33.1 g/dL (33.0-37.0); Mean Corpuscular Hgb 31.4 pg (27.0-31.0); Mean Corpuscular Volume 94.8 fL (81.0-99.0); Mean Platelet Volume 11.8 fL (7.4-10.4); Nucleated Red Blood Cells % 0 %; Platelet Count 141 10^3/uL (130-400); Red Blood Cell Count 2.87 10^6/uL (4.20-5.40); Red Cell Dist. Width 14.1 % (11.5-14.5); White Blood Cell Count 10.7 10^3/uL (4.8-10.8)
[2024-06-10] MEDS: NOVOLOG FLEXPEN-LOW RESISTANCE SC ×3 (08:02→15:41)
--- NOTE | 2024-06-10 08:39 | W.PN.CD ---
Today's Communication / Plan
-
Cardiology will sign off
Impression / Plan
-
Mechanical fall with left wrist and hip fracture status post left wrist reduction and cephalomedullary nail
- No cardiac complication detected
Acute procedural blood loss anemia, hip fx w/o surgery will also be associated with bleeding
Sinus tach
- Likely from pain and anemia
- treatment is to treat the anemia and the pain
CAD
-Remote SHIRLEY to RCA
-Stable without chest pain
-Continue aspirin
Hypertension, on amlodipine and metoprolol tartrate (confirmed with her this is once daily)
Dyslipidemia, during her prior hospitalization we recommended she increase her rosuvastatin to 10 mg daily, goal LDL <70
Type 2 diabetes mellitus, HbA1c pending, per primary
Former smoker, quit 2019, continue full cessation
Graves' disease
Subjective:
No CP.
Physical Exam
Vital Signs/Labs
Vital Signs
Temp Pulse Resp BP Pulse Ox
97.4 F 122 14 118/74 98
06/10/24 07:39 06/10/24 07:39 06/10/24 07:39 06/10/24 07:39 06/10/24 07:39
06/09/24 06/10/24 06/11/24
06:59 06:59 06:59
Actual Weight 68.5 kg
06/10/24 05:17
06/10/24 05:17
Magnesium 2.1 mg/dl (1.6-2.3) 06/10/24 05:17
Triglycerides 87 mg/dl (10-149) 06/10/24 05:17
LDL Cholesterol, Calc 55 mg/dl 06/10/24 05:17
VLDL Cholesterol, Calc 17 mg/dl (0-30) 06/10/24 05:17
HDL Cholesterol 71 mg/dl 06/10/24 05:17
TSH 5.90 uIU/ml (0.47-4.68) H 06/09/24 08:24
Free T4 1.71 ng/dl (0.78-2.19) 06/09/24 08:24
Physical Exam
Constitutional: No acute distress
Cardiovascular: Rhythm & rate is regular and Pedal edema is absent
Respiratory: Respiratory effort normal and Lungs clear to auscul.
GI: Soft and Non tender
Neuro/Psych: Alert
Data Reviewed
-
Date of Service: June 10, 2024
[2024-06-10 08:48] LABS: Glycohemoglobin (HgbA1c) 5.7 % (4.0-5.6)
[2024-06-10] MEDS: ASPIR LOW (ENTERIC COATED) 81 MG PO (09:16)
[2024-06-10] MEDS: NORVASC 5 MG PO (09:16)
[2024-06-10] MEDS: COLACE 100 MG PO ×2 (09:16→20:26)
[2024-06-10] MEDS: LOPRESSOR 50 MG PO (09:17)
[2024-06-10] MEDS: OSCAL CAL 500 500 MG PO (09:17)
[2024-06-10] MEDS: THERAGRAN 1 TABLET PO (09:17)
[2024-06-10] MEDS: LOVENOX 40 MG SC (09:17)
[2024-06-10] MEDS: ZOLOFT 50 MG PO (09:18)
[2024-06-10] MEDS: VITAMIN D3 (cholecalciferol) 50 MCG PO (09:18)
[2024-06-10] MEDS: ROXICODONE 10 MG PO ×2 (09:19→20:47)
[2024-06-10] MEDS: NSS IV (10:00)
--- NOTE | 2024-06-10 11:29 | W.PN.ORTHO ---
Today's Communication / Plan
-
83-year-old female postop day 1 status post left cephalomedullary nail fixation intertrochanteric femur fracture with left distal radius fracture and sugar-tong splint
Weightbearing as tolerated left lower extremity
PT OT
DVT prophylaxis: Recommend renally dosed Lovenox x 28 days
Medical management per primary team
Pain control
Nonweightbearing left upper extremity in splint and sling
I had a long detail discussion with the patient as well as the daughter at bedside regarding definitive treatment for left distal radius fracture. We discussed both conservative and surgical options. I would suspect that she would have a
reasonable outcome with the current alignment is relatively neutral postreduction on lateral views. We did discuss surgical fixation as well and we discussed that this might facilitate her recovery mobilization with physical therapy allow her to
mobilize her wrist and elbow sooner. After discussion both the patient and daughter elected to proceed with surgical intervention. We discussed risks benefits and alternatives of surgery. We discussed the usual expected perioperative
postoperative course. No guarantees were given. After discussion verbal consent was obtained for open reduction internal fixation left distal radius/ulna fractures. Will plan to obtain written informed consent prior to procedure
N.p.o. midnight
Please hold DVT prophylaxis in a.m. in preparation for OR
Plan: 2 OR tomorrow for open reduction term fixation left distal radius/ulna fractures and all indicated procedures pending OR availability and medical clearance.
Subjective
.
.:
Patient resting comfortably in bed this morning. Daughter at bedside. Patient hard of hearing but conversant.
Vital Signs and Labs
.
Vital Signs and Labs:
Lab Results
06/10/24 05:17
06/10/24 05:17
Temp Pulse Resp BP Pulse Ox
97.7 F 78 14 121/57 98
06/10/24 11:09 06/10/24 11:09 06/10/24 11:09 06/10/24 11:09 06/10/24 11:09
Physical Exam
-
Musculoskeletal left lower extremity
Moderate bloody drainage dressings
Moderate swelling thigh
Leg lengths equal
Positive EHL, FHL, ankle dorsiflexion and plantarflexion
Distal extremity warm and pink
Left upper extremity
Sugar-tong splint in place
Exposed fingers warm sensate mobile
Brisk cap refill
[2024-06-10 12:38] LABS: Glucose - Point of Care 122 mg/dl (70-99)
--- NOTE | 2024-06-10 12:43 | W.PN.HOSP.TC ---
Today's Communication/Plan
-
pending further OP
follow H&H q12h
Assessment / Plan
Assessment / Plan
83yo F with PMHx of CAD s/p PCI, CEA, DM controlled on diet, osteoporosis, HTN, graves disease brought to the hospital after the fall w/o LOC, when she tripped while walking with the dog. In ED found L radial and ulnar Fx, that was reduced in ED as
well as comminuted and impacted intertrochanteric Fx of L femur. S/P L katt on 06/09/24 and planned for wrist repair on 06/11/24
A/P:
#comminuted and impacted intertrochanteric Fx of L femur
#L radial and ulnar Fx
Pain mgmt
Ortho cosnult: s/p Insertion left short cephalomedullary nail on 06/09/24
PT/OT: WB to tolerrance
cont LUE sling, pending Sx
#Acute blood loss anemia 2/2 Fx and surgery
FOllow Hgb, watch L hip for bruising, transfuse as needed
#Fall
Head CT without acute findings
#CAD, s/p PCI
s/p cardiac cath in 2020 without culpit lesion
cont ASA, BB, statin
Cardio: cont ASA, no additional perior postOP mgmt
#PreDM vs DM
Insulin SS as needed with accuchecks
Check HgbA1c
#Graves disease
check TSH
cont Synthroid
#HLD
#Essential HTN
#Presbycusis
#Anxiety/depression d/o
#Osteoporosis
cont home meds
DVT ppx lovenox
Full code - discussed with patient
I have spent at least 38min reviewing chart, test results, communication with cosnultants and direct patient care
Anticipated Discharge: > 48 hours
Subjective/Interval History
-
Date of Service: June 10, 2024
Objective Data
-
Labs:
Laboratory Results
06/10/24
05:17
WBC 10.7
Hgb 9.0 L D
Hct 27.2 L
Plt Count 141 D
Sodium 137
Potassium 4.3
Chloride 102
Carbon Dioxide 22
BUN 26 H
Creatinine 1.0
Glucose 143 H
Calcium 8.7
Total Bilirubin 0.5
AST 81 H
ALT 52 H
Alkaline Phosphatase 91
Vital Signs:
Vital Signs
Temp Pulse Resp BP Pulse Ox
97.7 F 78 14 121/57 98
06/10/24 11:09 06/10/24 11:09 06/10/24 11:09 06/10/24 11:09 06/10/24 11:09
I&O
06/09/24 06/10/24 06/11/24
06:59 06:59 06:59
Intake Total 830 / 830
Balance 830 / 830
Review of Systems
-
Unable to obtain full review of systems at this time due to: Dementia
History Source: Patient
Physical Exam
-
General: No Apparent Distress
HEENT: Normocephalic and Hearing Impaired
Respiratory: Clear to Auscultation
Cardiac: Regular Rhythm
Musculoskeletal: No Clubbing, No Cyanosis and No Edema
Neuro: Awake, Alert, Oriented and AO x 3
Psych: Calm
--- NOTE | 2024-06-10 13:11 | CM ---
Spoke with patient's daughter, Cindy # [phone], via phone to discuss discharge plan
Explained that PT/OT recommended short term long term facility; daughter is agreeable with DC plan; SNF options discussed; Daughter' preference is [facility]
Referral sent via [facility]
Plan: discharge to SNF when medically stable; pending bed availability and AUTH approval
--- NOTE | 2024-06-10 13:18 | CM ---
Initial Assessment completed with daughter, Cindy Gutierrez # [phone]
Pharmacy: [facility] @ [address] [place] [address]
Daughter reported that patient lives alone in a one floor home; 1 step to enter via front door; bath has walk-in shower with grab bar and built in seat
Daughter reported that prior to Fall, patient was independent with ADLs; ambulated occasionally with a cane; does not Drive
[facility]; [facility]
Explained to daughter that PT/OT recommended short term [facility] facility; daughter is agreeable with DC plan; SNF options discussed; Daughter' preference is [facility]
Referral sent via [facility]
Plan: discharge to SNF when medically stable; pending bed availability and AUTH approval
[2024-06-10] MEDS: MORPHINE SULFATE 1 MG IV (13:20)
[2024-06-10 15:44] LABS: Glucose - Point of Care 136 mg/dl (70-99)
[2024-06-10 17:24] LABS: Glucose - Point of Care 237 mg/dl (70-99)
[2024-06-10] MEDS: CRESTOR 5 MG PO (18:32)
[2024-06-10 19:46] LABS: Hematocrit 23.8 % (37.0-47.0); Hemoglobin 8.1 g/dL (12.0-16.0)
[2024-06-10 21:45] LABS: Glucose - Point of Care 163 mg/dl (70-99)
[2024-06-11] VITALS (21 sets, daily range): BP systolic 101–141; BP diastolic 53–90
[2024-06-11] MEDS: DILAUDID 0.25 MG IV (02:34)
[2024-06-11 05:54] LABS: Glucose - Point of Care 150 mg/dl (70-99)
[2024-06-11] MEDS: NOVOLOG FLEXPEN-LOW RESISTANCE 1 UNITS SC ×2 (06:19→17:15)
[2024-06-11 06:25] LABS: % Basophils 0.3 % (0-2); % Eosinophils 1.3 % (0-6); % Immature Granulocytes 0.5 % (0-0.5); % Lymphocytes 13.4 % (20.5-51.1); % Monocytes 9.5 % (1.7-9.3); Absolute Eosinophils 0.2 10^3/uL (0-0.7); Absolute Immature Granulocytes 0.1 10^3/uL (0-0.05); Absolute Lymphocytes 1.5 10^3/uL (1.2-3.4); Absolute Monocytes 1.1 10^3/uL (0.1-0.6); Absolute Neutrophils 8.4 10^3/uL (1.4-6.5); Hematocrit 22.8 % (37.0-47.0); Hemoglobin 7.6 g/dL (12.0-16.0); Mean Corp Hgb Conc. 33.3 g/dL (33.0-37.0); Mean Corpuscular Hgb 31.7 pg (27.0-31.0); Mean Platelet Volume 11.5 fL (7.4-10.4); Nucleated Red Blood Cells % 0 %; Platelet Count 114 10^3/uL (130-400); Red Cell Dist. Width 13.8 % (11.5-14.5); White Blood Cell Count 11.2 10^3/uL (4.8-10.8)
[2024-06-11 06:34] LABS: ALT (SGPT) 31 U/L (0-35); AST (SGOT) 51 U/L (14-36); Albumin 3.3 g/dl (3.5-5.0); Alkaline Phosphatase 101 U/L (38-126); Blood Urea Nitrogen 24 mg/dl (7-17); Calcium 8.7 mg/dl (8.4-10.2); Carbon Dioxide 24 mmol/L (22-30); Chloride 100 mmol/L (98-107); Estimated Creatinine Clearance 41 ml/min; Glucose 132 mg/dl (70-99); Potassium 4.2 mmol/L (3.5-5.1); Sodium 134 mmol/L (135-145); Total Bilirubin 0.4 mg/dl (0.2-1.3); Total Protein 5.5 g/dl (6.3-8.2); eGFR > 60.00
--- NOTE | 2024-06-11 07:43 | W.PN.HOSP.TC ---
Today's Communication/Plan
-
for L wrist Sx
transfuse and follow Hgb
wean off O2
Assessment / Plan
Assessment / Plan
83yo F with PMHx of CAD s/p PCI, CEA, DM controlled on diet, osteoporosis, HTN, graves disease brought to the hospital after the fall w/o LOC, when she tripped while walking with the dog. In ED found L radial and ulnar Fx, that was reduced in ED as
well as comminuted and impacted intertrochanteric Fx of L femur. S/P L katt on 06/09/24 and planned for wrist repair on 06/11/24. Developed postOP anemia
A/P:
#comminuted and impacted intertrochanteric Fx of L femur
#L radial and ulnar Fx
Pain mgmt
Ortho cosnult: s/p Insertion left short cephalomedullary nail on 06/09/24
PT/OT: WB to tolerrance
cont LUE sling, pending Sx
#Acute blood loss anemia 2/2 Fx and surgery
1 unit PRBC ordered on 06/11/24 - hip remained wityout significant bruising or swelling
Anemia w/u, incluidng FOBT pending
Follow Hgb, watch L hip for bruising, transfuse as to keep Hgb > 8 (hx of cardiac stent)
PPI for PUD ppx
#Acute hypoxic insufficiency
most likely 2/2 anesthesia, possible atelectasis
Chest XR pending
Incentive spirometry
#Fall
Head CT without acute findings
#CAD, s/p PCI
s/p cardiac cath in 2020 without culpit lesion
cont ASA, BB, statin
Cardio: cont ASA, no additional perior postOP mgmt
#PreDM vs DM
Insulin SS as needed with accuchecks
Check HgbA1c
#Hx of Graves disease
TSH mildly elevated to 5.9 - can be normal for the age (less then 7.0), normal FT4
not on Synthroid
#HLD
#Essential HTN
#Presbycusis
#Anxiety/depression d/o
#Osteoporosis
cont home meds
DVT ppx Lovenox as per ortho
Full code - discussed with patient
I have spent at least 38min reviewing chart, test results, communication with consultants and direct patient care
Anticipated Discharge: > 48 hours
Subjective/Interval History
-
Date of Service: June 11, 2024
Objective Data
-
Labs:
Laboratory Results
06/10/24 06/11/24
19:41 05:45
WBC 11.2 H
Hgb 8.1 L 7.6 L
Hct 23.8 L 22.8 L
Plt Count 114 L
Sodium 134 L
Potassium 4.2
Chloride 100
Carbon Dioxide 24
BUN 24 H
Creatinine 0.9
Glucose 132 H
Calcium 8.7
Total Bilirubin 0.4
AST 51 H
ALT 31
Alkaline Phosphatase 101
Vital Signs:
Vital Signs
Temp Pulse Resp BP Pulse Ox
97.8 F 100 18 140/74 98
06/11/24 03:17 06/11/24 03:17 06/11/24 03:17 06/11/24 03:17 06/11/24 03:17
I&O
06/10/24 06/11/24 06/12/24
06:59 06:59 06:59
Intake Total 830 / 830 960 / 960
Balance 830 / 830 960 / 960
Review of Systems
-
History Source: Patient
All other systems: Reviewed and negative
Musculoskeletal: Reports Other (L hip pain, L wrist pain)
Physical Exam
-
General: No Apparent Distress
HEENT: Hearing Impaired
Respiratory: Clear to Auscultation
Cardiac: Regular Rhythm
GI: Soft, Nontender and Nondistended
Musculoskeletal: No Clubbing, No Cyanosis and No Edema
Skin: Warm
Neuro: Awake, Alert and Oriented
Psych: Calm and Apparent Dementia
[2024-06-11 07:50] LABS: Glucose - Point of Care 132 mg/dl (70-99)
[2024-06-11 08:32] LABS: Reticulocyte Count 3.1 % (0.4-2.8)
[2024-06-11 08:42] LABS: Iron 26 ug/dl (37-170); LDH 172 U/L (120-246)
[2024-06-11 08:52] LABS: Percent Saturation 10 % (20-50); Total Iron Binding Capacity 249 ug/dl (265-497)
[2024-06-11] MEDS: PROTONIX IV 40 MG IV (09:16)
[2024-06-11] MEDS: NORVASC 5 MG PO (09:16)
[2024-06-11] MEDS: ASPIR LOW (ENTERIC COATED) 81 MG PO (09:16)
[2024-06-11] MEDS: ZOLOFT 50 MG PO (09:16)
[2024-06-11] MEDS: COLACE 100 MG PO ×2 (09:16→20:06)
[2024-06-11] MEDS: LOVENOX SC (09:17)
[2024-06-11] MEDS: NSS (PRESERVATIVE FREE) 10 ML IV (09:18)
[2024-06-11] MEDS: LOPRESSOR 50 MG PO (09:18)
[2024-06-11 09:25] LABS: Ferritin 63.4 ng/ml (11.1-264.0)
[2024-06-11 09:56] LABS: Folate 14.8 ng/ml (2.76-20); Vitamin B12 245 pg/ml (239-931)
[2024-06-11] MEDS: NOVOLOG FLEXPEN-LOW RESISTANCE SC (14:09)
--- NOTE | 2024-06-11 14:47 | OR.RPT ---
Operative Report
Operative Report
Anesthesia Type:
General
Operative Indications:
Displaced left distal radius/ulna fractures, polytrauma with recent hip fracture
Operative Findings :
Left distal radius fracture ulnar fracture with some comminution distal radius
Implants:
Sobia intermediate distal radius plate, Sobia distal ulna locking plate
Procedure and Technique:
Open reduction internal fixation left distal radius fracture, open reduction internal fixation left distal ulna fracture 2 or more intra-articular fragments distal radius
INDICATIONS FOR PROCEDURE:
83-year-old female fairly independent presented to emergency apartment status post fall with complaints of left hip pain left wrist pain. She was subsequently diagnosed with left intertrochanteric femur fracture as well as a left comminuted distal
radius fracture. General close reduction Emergency Department. Please consult and she was taken to the operating room for cephalomedullary nail fixation of intertrochanteric femur fracture. Postoperatively had a long detailed discussion with the
patient as well as daughter regarding diagnosis regarding left distal radius and ulna fractures. We discussed both surgical and nonsurgical options. After extensive discussion patient opted to proceed with open reduction internal fixation to help
facilitate motion and use of her left upper extremity to aid in her recovery and ambulation from her hip fracture. We discussed risks benefits and alternatives to surgery. We discussed the usual expected perioperative postoperative course. After
discussion written informed consent was obtained
OPERATIVE PROCEDURE:
Patient was seen identified the preoperative holding area. Operative extremity marked. Questions were addressed. He was taken to the operating room where general anesthesia was administered. Nonsterile tourniquet was applied. Operative
extremities then prepped and draped in normal sterile fashion. Timeout was performed again identifying the correct operative extremity. Preoperative antibiotics were addressed. Standard volar approach to the distal radius was performed. Sharp
dissection was carried through skin and subcutaneous tissues. Attention was made to protect all neurovascular structures. Pronator quadratus was sharply incised and elevated off of the volar surface distal radius. Fracture was identified with
notable comminution. Close reduction was performed and plate was applied for provisional fixation. Appropriate reduction with improvement of alignment volar tilt and radial height was noted provisional intraoperative fluoroscopy. Bicortical
fixation was achieved diaphysis and the distal holes were then filled with locking screws of appropriate length. Appropriate reduction was confirmed on orthogonal intraoperative fluoroscopy. Bicortical fixation was then achieved in the shaft to
additional holes. There was noted to be a nondisplaced intra-articular fracture in the radial styloid that was felt to be in appropriate alignment with essentially anatomic alignment. Attention was then turned to the distal ulna fracture. Sharp
dissection was carried through skin subcutaneous tissues overlying the ulnar aspect of the wrist. Attention is paid to protect all neurovascular structures. Fracture was identified and provisional reduction was achieved with K wires. [employer]
distal ulna plate was then placed and bicortical fixation was achieved proximally. Unicortical locking screws were then placed into the ulnar styloid. Hybrid fixation was then achieved in the diaphysis. Final orthogonal images confirmed
appropriate reduction of fractures. Shuck test confirmed stable DRUJ. Satisfied with extent of surgery tourniquet was deflated hemostasis was achieved with electrocautery. Wounds were closed in layered fashion utilizing 3-0 Monocryl for
subcutaneous layer and 3-0 nylon for skin. Sterile dressings were applied consisting of Xeroform, 4 x 4 gauze, Webril as well as a volar slab splint placed by myself. Anesthesia was reversed and patient was taken to PACU in stable condition.
Postoperative plans will include weightbearing to patient's tolerance left lower extremity. Nonweightbearing left upper extremity in splint. Okay to bear weight through forearm utilizing platform walker. Continue DVT prophylaxis for 28 days.
Plan to see patient back in the office in 2 to 3 weeks for repeat evaluation.
Disposition:
PACU stable condition
[2024-06-11 15:07] LABS: Glucose - Point of Care 150 mg/dl (70-99)
[2024-06-11] MEDS: OSCAL CAL 500 PO (16:08)
[2024-06-11] MEDS: THERAGRAN PO (16:08)
[2024-06-11] MEDS: VITAMIN D3 (cholecalciferol) PO (16:09)
[2024-06-11] MEDS: FERRLECIT 110 MG IV (16:10)
[2024-06-11] MEDS: NSS 1000 IV (16:14)
[2024-06-11 16:47] LABS: Glucose - Point of Care 167 mg/dl (70-99)
--- NOTE | 2024-06-11 16:51 | PTCARENOTE ---
1640: Patient arrived back to 2S. Full head to toe assessment completed. Patient drowsy, but opens eyes to verbal stimuli. L radial pulse WNL. Michael bandage to mid forearm on L arm. Patient wearing 2L NC with SpO2 greater than 92%. IVF running per
order. Call san within reach and bed in lowest position.
[2024-06-11] MEDS: CRESTOR 5 MG PO (17:15)
[2024-06-11] MEDS: CYANOCOBALAMIN 1000 MCG IM (17:15)
[2024-06-11] MEDS: TYLENOL 650 MG PO (18:12)
[2024-06-11] MEDS: ANCEF 5 IV (19:54)
[2024-06-11] MEDS: ROXICODONE 10 MG PO (20:51)
[2024-06-11 21:19] LABS: Glucose - Point of Care 269 mg/dl (70-99)
[2024-06-12 00:36] LABS: Hematocrit 23.8 % (37.0-47.0); Hemoglobin 8.1 g/dL (12.0-16.0)
[2024-06-12] MEDS: DILAUDID 0.25 MG IV ×3 (01:25→21:17)
[2024-06-12 03:04] VITALS: BP 141/74
[2024-06-12] MEDS: NSS 1000 IV (04:05)
[2024-06-12] MEDS: ANCEF 5 IV (04:05)
[2024-06-12] MEDS: ROXICODONE 10 MG PO ×2 (04:18→11:53)
[2024-06-12 07:24] VITALS: BP 123/71
[2024-06-12 07:24] LABS: % Basophils 0.2 % (0-2); % Immature Granulocytes 0.9 % (0-0.5); % Lymphocytes 6.5 % (20.5-51.1); % Monocytes 8.2 % (1.7-9.3); % Neutrophils 84.2 % (42.2-75.2); Absolute Immature Granulocytes 0.1 10^3/uL (0-0.05); Absolute Lymphocytes 0.6 10^3/uL (1.2-3.4); Absolute Monocytes 0.8 10^3/uL (0.1-0.6); Absolute Neutrophils 8.1 10^3/uL (1.4-6.5); Hematocrit 23.8 % (37.0-47.0); Hemoglobin 8.6 g/dL (12.0-16.0); Mean Corp Hgb Conc. 36.1 g/dL (33.0-37.0); Mean Corpuscular Volume 91.2 fL (81.0-99.0); Nucleated Red Blood Cells % 0 %; Red Blood Cell Count 2.61 10^6/uL (4.20-5.40); Red Cell Dist. Width 13.9 % (11.5-14.5); White Blood Cell Count 9.7 10^3/uL (4.8-10.8)
[2024-06-12 07:25] LABS: Glucose - Point of Care 147 mg/dl (70-99)
[2024-06-12 07:25] LABS: ALT (SGPT) 20 U/L (0-35); AST (SGOT) 49 U/L (14-36); Albumin 3.3 g/dl (3.5-5.0); Alkaline Phosphatase 118 U/L (38-126); Blood Urea Nitrogen 16 mg/dl (7-17); Carbon Dioxide 21 mmol/L (22-30); Chloride 102 mmol/L (98-107); Estimated Creatinine Clearance 53 ml/min; Glucose 144 mg/dl (70-99); Potassium 4.3 mmol/L (3.5-5.1); Sodium 136 mmol/L (135-145); Total Bilirubin 0.5 mg/dl (0.2-1.3); Total Protein 5.5 g/dl (6.3-8.2); eGFR > 60.00
[2024-06-12 07:57] LABS: Mean Platelet Volume 11.6 fL (7.4-10.4); Platelet Count 89 10^3/uL (130-400)
[2024-06-12] MEDS: NOVOLOG FLEXPEN-LOW RESISTANCE SC ×3 (08:03→16:44)
[2024-06-12] MEDS: CYANOCOBALAMIN 1000 MCG IM (08:04)
[2024-06-12] MEDS: NSS (PRESERVATIVE FREE) 10 ML IV (08:04)
[2024-06-12] MEDS: PROTONIX IV 40 MG IV (08:04)
[2024-06-12] MEDS: ASPIR LOW (ENTERIC COATED) 81 MG PO (08:04)
[2024-06-12] MEDS: LOVENOX 40 MG SC (08:05)
[2024-06-12] MEDS: COLACE 100 MG PO ×2 (08:05→20:57)
[2024-06-12] MEDS: LOPRESSOR 50 MG PO (08:05)
[2024-06-12] MEDS: ZOLOFT 50 MG PO (08:05)
[2024-06-12] MEDS: THERAGRAN 1 TABLET PO (08:05)
[2024-06-12] MEDS: VITAMIN D3 (cholecalciferol) 50 MCG PO (08:05)
[2024-06-12] MEDS: OSCAL CAL 500 500 MG PO (08:05)
[2024-06-12] MEDS: NORVASC 5 MG PO (08:05)
--- NOTE | 2024-06-12 08:20 | W.PN.HOSP.TC ---
Today's Communication/Plan
-
Recheck AM CBC
Case management working on SNF placement
Assessment / Plan
Assessment / Plan
Physical Exam
General: No Apparent Distress
HEENT: Hearing Impaired
Respiratory: Clear to Auscultation Bilaterally
Cardiac: S1 and S2. Regular Rhythm
GI: Soft, Nontender and Nondistended. Positive bowel sounds.
Musculoskeletal: No Cyanosis and No Edema
Skin: Warm. Dry.
Neuro: Awake, Alert and Oriented
Psych: Calm and Apparent Dementia
Assessment/Plan
83yo F with PMHx of CAD s/p PCI, CEA, DM controlled on diet, osteoporosis, HTN, graves disease brought to the hospital after the fall w/o LOC, when she tripped while walking with the dog. In ED found L radial and ulnar Fx, that was reduced in ED as
well as comminuted and impacted intertrochanteric Fx of L femur. S/P L katt on 06/09/24 and planned for wrist repair on 06/11/24. Developed postOP anemia.
#comminuted and impacted intertrochanteric Fx of L femur status post Insertion left short cephalomedullary nail
#L radial and ulnar Fx status post open reduction internal fixation left distal radius fracture, open reduction internal fixation left distal ulna fracture 2 or more intra-articular fragments distal radius
#Fractures due to combination of trauma and a pathological process of osteoporosis
Pain mgmt
Ortho cosnult: s/p Insertion left short cephalomedullary nail on 06/09/24
PT/OT
Weightbearing to patient's tolerance left lower extremity.
Nonweightbearing left upper extremity in splint.
Okay to bear weight through forearm utilizing platform walker.
Continue Lovenox DVT prophylaxis for [address] Santana plans to see patient back in the office in 2 to 3 weeks for repeat evaluation.
#Acute blood loss anemia 2/2 Fx and surgery
1 unit PRBC ordered on 06/11/24 - hip remained wityout significant bruising or swelling
Anemia w/u, including FOBT pending
Follow Hgb, watch L hip for bruising, transfuse as to keep Hgb > 8 (hx of cardiac stent)
PPI for PUD ppx
#Concern for Constipation Post-Op
-Check abdominal x-ray
-Bowel regimen
#Crackles in lungs
#Acute hypoxic insufficiency
most likely 2/2 anesthesia, possible atelectasis
Chest XR pending
Incentive spirometry
Stopped IV fluids as patient eating and drinking
#Fall
Head CT without acute findings
#CAD, s/p PCI
s/p cardiac cath in 2020 without culpit lesion
cont ASA, BB, statin
Cardio: cont ASA, no additional perior postOP mgmt
#PreDM vs DM
Insulin SS as needed with accuchecks
HgbA1c is 5.7%
#Hx of Graves disease
TSH mildly elevated to 5.9 - can be normal for the age (less then 7.0), normal FT4
not on Synthroid
#HLD
#Essential HTN
#Presbycusis
#Anxiety/depression d/o
#Osteoporosis
cont home meds
DVT ppx Lovenox as per ortho
Full code - discussed with patient
Anticipated Discharge: 24 - 48 hours
Subjective/Interval History
-
Date of Service: June 12, 2024
Patient was seen and examined. She has yet to have a bowel movement, she is eating and drinking.
Objective Data
-
Labs:
Laboratory Results
06/12/24 06/12/24
00:06 06:10
WBC 9.7
Hgb 8.1 L 8.6 L
Hct 23.8 L 23.8 L
Plt Count 89 L D
Sodium 136
Potassium 4.3
Chloride 102
Carbon Dioxide 21 L
BUN 16
Creatinine 0.7
Glucose 144 H
Calcium 8.0 L
Total Bilirubin 0.5
AST 49 H
ALT 20
Alkaline Phosphatase 118
Vital Signs:
Vital Signs
Temp Pulse Resp BP Pulse Ox
97.9 F 93 16 123/71 97
06/12/24 07:24 06/12/24 08:05 06/12/24 07:53 06/12/24 08:05 06/12/24 07:53
I&O
06/11/24 06/12/24 06/13/24
06:59 06:59 06:59
Intake Total 960 / 960 2374 / 2374
Balance 960 / 960 2374 / 2374
--- NOTE | 2024-06-12 10:34 | CM ---
DANIEL met with patient son from [place].
Patient sleeping
Discussed role of case management.
States to speak with his sister Matthew.
Referral was sent to [facility] via [facility].
Called [facility] at [place] & they do not use [facility].
DANIEL faxed clinicals to [facility] at FAX # [phone]
Patient's daughter works at [employer].
[facility] states they will accept patient upon bed availability since the daughter Cindy works there.
Will need authorization.
PLAN: SNF, pending bed availability
[2024-06-12] MEDS: NSS IV (10:44)
[2024-06-12] MEDS: MORPHINE SULFATE 1 MG IV (10:51)
[2024-06-12] MEDS: MIRALAX 17 GRAMS PO (10:52)
[2024-06-12] MEDS: SENOKOT-S 1 TABLET PO (10:52)
[2024-06-12 11:19] VITALS: BP 156/65
[2024-06-12 11:20] LABS: Glucose - Point of Care 144 mg/dl (70-99)
--- NOTE | 2024-06-12 11:52 | PN.CDI ---
CDI
- -
CDI:
Physician Documentation Request
Admit Date: 06/09/24 11:28
Dear Doctor Esther,
Please review the following and provide your response in the progress notes.
Clinical Indicators:
Pt admitted with left hip fracture and left radius/ulna fracture.
06/09 H&P includes history of osteoporosis.
06/09 orthopedic note: 'HPI: 83-year-old female presented to the emergency department status post mechanical fall at home.'
Medication list includes:
alendronate 70 mg tablet (Fosamax) 70 mg PO WE osteoporosis 06/09/24
calcium carbonate (Calcium 600) 600 mg PO DAILY supplement 06/09/24
cholecalciferol (vitamin D3) 50 mcg (2,000 unit) tablet (Vitamin D3) 50 mcg PO DAILY supplement 06/09/24
Please provide further specificity regarding the diagnosis of fracture:
Fractures due to combination of trauma and a pathological process of osteoporosis
Fractures pathological due to osteoporosis
Fractures due to trauma only
Other
Use of terms such as suspected, likely, concern for, or probable (associated with a specific diagnosis that is being evaluated, monitored, or treated as if it exists) are acceptable and can be coded in the inpatient setting, when documented at the
time of discharge.
Thank you,
Bernice ROBERTSONN
CDI Specialist
Available via [place] [facility]
Please use your independent medical judgment in providing your response.
[2024-06-12] MEDS: FERRLECIT 110 MG IV (13:04)
[2024-06-12 15:16] VITALS: BP 148/66
--- NOTE | 2024-06-12 16:14 | PTOTSP ---
Notified Ortho and hospitalist prior to noon that updated PT and OT orders are needed following new surgery under general anesthesia. Awaiting new orders prior to resuming therapy activities.
[2024-06-12 16:44] LABS: Glucose - Point of Care 148 mg/dl (70-99)
--- NOTE | 2024-06-12 17:01 | W.PN.ORTHO ---
Today's Communication / Plan
-
POD 1 s/p ORIF L Distal radius/ulna fracture POD 3 s/p L CMN insertion
WBAT LLE
NWB LUE in splint
PT/OT- ok to bear weight left upper through platform walker
Pain control
DVT ppx- lovenox X 28 days
medical management per primary team
Keep left upper extremity elevated, ICE
F/u out patient in 2-3 weeks
Subjective
.
.:
Patient resting comfortably in bed. No overnight events.
Vital Signs and Labs
.
Vital Signs and Labs:
Lab Results
06/12/24 06:10
06/12/24 06:10
Temp Pulse Resp BP Pulse Ox
98 F 85 14 148/66 100
06/12/24 15:16 06/12/24 15:16 06/12/24 15:16 06/12/24 15:16 06/12/24 15:16
Physical Exam
-
MSK LUE
swelling, ecchymotic staining exposed fingers
MSK LLE
Ecchymotic staining, bloody aquacel dressings
Moderate swelling
Moving toes
[2024-06-12] MEDS: CRESTOR 5 MG PO (17:13)
[2024-06-12 19:20] VITALS: BP 123/61
[2024-06-12 22:05] LABS: Glucose - Point of Care 151 mg/dl (70-99)
[2024-06-13] VITALS (12 sets, daily range): BP systolic 114–142; BP diastolic 50–74; PULSE 94; O2SAT 95–99
[2024-06-13 08:05] LABS: Glucose - Point of Care 147 mg/dl (70-99)
[2024-06-13] MEDS: THERAGRAN 1 TABLET PO (08:13)
[2024-06-13] MEDS: VITAMIN D3 (cholecalciferol) 50 MCG PO (08:13)
[2024-06-13] MEDS: NOVOLOG FLEXPEN-LOW RESISTANCE SC ×2 (08:13→18:06)
[2024-06-13] MEDS: NORVASC 5 MG PO (08:14)
[2024-06-13] MEDS: LOPRESSOR 50 MG PO (08:14)
[2024-06-13] MEDS: ASPIR LOW (ENTERIC COATED) 81 MG PO (08:14)
[2024-06-13] MEDS: OSCAL CAL 500 500 MG PO (08:14)
[2024-06-13] MEDS: ROXICODONE 10 MG PO (08:14)
[2024-06-13] MEDS: COLACE 100 MG PO ×2 (08:15→19:56)
[2024-06-13] MEDS: ZOLOFT 50 MG PO (08:15)
[2024-06-13] MEDS: PROTONIX IV 40 MG IV (08:15)
[2024-06-13] MEDS: LOVENOX 40 MG SC (08:15)
[2024-06-13] MEDS: NSS (PRESERVATIVE FREE) 10 ML IV (08:15)
[2024-06-13] MEDS: CYANOCOBALAMIN 1000 MCG IM (08:16)
[2024-06-13] MEDS: FLUSH (NSS) 2 FLUSH IV (08:17)
[2024-06-13 09:38] LABS: Blood Urea Nitrogen 19 mg/dl (7-17); Calcium 8.1 mg/dl (8.4-10.2); Carbon Dioxide 21 mmol/L (22-30); Chloride 101 mmol/L (98-107); Estimated Creatinine Clearance 62 ml/min; Glucose 136 mg/dl (70-99); Magnesium 2.2 mg/dl (1.6-2.3); Potassium 4.3 mmol/L (3.5-5.1); Sodium 130 mmol/L (135-145); eGFR > 60.00
[2024-06-13 10:40] LABS: Hematocrit 20.8 % (37.0-47.0); Hemoglobin 7.5 g/dL (12.0-16.0); Mean Corp Hgb Conc. 36.1 g/dL (33.0-37.0); Mean Corpuscular Hgb 31.8 pg (27.0-31.0); Mean Corpuscular Volume 88.1 fL (81.0-99.0); Mean Platelet Volume 11.7 fL (7.4-10.4); Platelet Count 114 10^3/uL (130-400); Red Blood Cell Count 2.36 10^6/uL (4.20-5.40); Red Cell Dist. Width 14.1 % (11.5-14.5); White Blood Cell Count 9.9 10^3/uL (4.8-10.8)
--- NOTE | 2024-06-13 11:29 | CM ---
Reviewed the chart notes and spoke with the patient's son at the bedside. CM continues to be available to patient/family and is monitoring medical plan for needs at discharge.
Plan: Discharge to [facility] when medically stable. Precert will be required.
[2024-06-13 11:50] LABS: Glucose - Point of Care 230 mg/dl (70-99)
--- NOTE | 2024-06-13 13:29 | W.PN.CD ---
Today's Communication / Plan
-
Furosemide 40mg IV x 1
Impression / Plan
-
BACKGROUND: 83F with coronary artery disease, hypertension, dyslipidemia, type 2 diabetes mellitus, Graves' disease, osteoporosis, and ambulatory dysfunction who presented to the emergency department this morning after she sustained a mechanical
fall.
Economist Research Assistant: Dr. Solano
HFpEF, acute - new diagnosis
-CXR yesterday with pulmonary congestion, proBNP 704
-Last weight documented, 06/09/24, update and follow
-Echocardiogram ordered
-Furosemide 40mg IV x 1 now
Left carotid appears abnormal - B/L carotid artery US
Mechanical fall with left wrist and hip fracture status post left wrist reduction and cephalomedullary nail, per Ortho
Acute procedural blood loss anemia, S/P 1 unit PRBC, transfusion per primary
CAD
-Remote SHIRLEY to RCA
-Stable without chest pain
-Continue aspirin
Hypertension, on amlodipine and metoprolol tartrate (confirmed with her this is once daily)
Dyslipidemia, during her prior hospitalization we recommended she increase her rosuvastatin to 10 mg daily, goal LDL <70
Type 2 diabetes mellitus, Hgba1c 5.7%, per primary
Former smoker, quit 2019, continue full cessation
Graves' disease
Subjective:
Denies CP.
Physical Exam
Vital Signs/Labs
Vital Signs
Temp Pulse Resp BP Pulse Ox
97.5 F 100 18 117/74 98
06/13/24 11:20 06/13/24 11:20 06/13/24 11:20 06/13/24 11:20 06/13/24 11:20
06/13/24 09:07
06/13/24 09:07
Magnesium 2.2 mg/dl (1.6-2.3) 06/13/24 09:07
Triglycerides 87 mg/dl (10-149) 06/10/24 05:17
LDL Cholesterol, Calc 55 mg/dl 06/10/24 05:17
VLDL Cholesterol, Calc 17 mg/dl (0-30) 06/10/24 05:17
HDL Cholesterol 71 mg/dl 06/10/24 05:17
TSH 5.90 uIU/ml (0.47-4.68) H 06/09/24 08:24
Free T4 1.71 ng/dl (0.78-2.19) 06/09/24 08:24
Physical Exam
Constitutional: No acute distress and Comfortable
EENT: Anicteric and Moist mucous membranes
Cardiovascular: Rhythm & rate is regular, Pedal edema is absent and S1S2 is normal
Respiratory: Respiratory effort normal
GI: Soft, Distention absent, Flat, Non tender and Normal bowel sounds
Neuro/Psych: Other (Drowsy)
Other: Skin (warm and dry)
Data Reviewed
-
Date of Service: June 13, 2024
Labs: Labs Reviewed by me
[2024-06-13] MEDS: NOVOLOG FLEXPEN-LOW RESISTANCE 2 UNITS SC (13:36)
[2024-06-13] MEDS: FERRLECIT 110 MG IV (13:37)
[2024-06-13] MEDS: DULCOLAX 10 MG RECTAL (13:40)
[2024-06-13] MEDS: MIRALAX 17 GRAMS PO (13:40)
[2024-06-13 13:49] LABS: NT-proBNP 704 pg/ml
[2024-06-13] MEDS: LASIX 40 MG IV (16:14)
--- NOTE | 2024-06-13 16:16 | W.PN.HOSP.TC ---
Today's Communication/Plan
-
Echocardiogram and Lasix
Campos Catheter for urinary retention
2nd unit of PRBC ordered today for Hgb 7.5; goal Hgb is 8 given patient's history of CAD
Appreciate cardiology
Closely monitor for any bowel movements -- may need enema and gastroenterology consult
Assessment / Plan
Assessment / Plan
Physical Exam
General: No Apparent Distress
HEENT: Hearing Impaired
Respiratory: Clear to Auscultation Bilaterally
Cardiac: S1 and S2. Regular Rhythm
GI: Soft, Nontender and Nondistended. Positive bowel sounds.
Musculoskeletal: No Cyanosis and No Edema
Skin: Warm. Dry.
Neuro: Awake, Alert and Oriented
Psych: Calm and Apparent Dementia
Assessment/Plan
83yo F with PMHx of CAD s/p PCI, CEA, DM controlled on diet, osteoporosis, HTN, graves disease brought to the hospital after the fall w/o LOC, when she tripped while walking with the dog. In ED found L radial and ulnar Fx, that was reduced in ED as
well as comminuted and impacted intertrochanteric Fx of L femur. S/P L katt on 06/09/24 and planned for wrist repair on 06/11/24. Developed postOP anemia.
#comminuted and impacted intertrochanteric Fx of L femur status post Insertion left short cephalomedullary nail
#L radial and ulnar Fx status post open reduction internal fixation left distal radius fracture, open reduction internal fixation left distal ulna fracture 2 or more intra-articular fragments distal radius
#Fractures due to combination of trauma and a pathological process of osteoporosis
Pain mgmt
Ortho cosnult: s/p Insertion left short cephalomedullary nail on 06/09/24
PT/OT
Weightbearing to patient's tolerance left lower extremity.
Nonweightbearing left upper extremity in splint.
Okay to bear weight through forearm utilizing platform walker.
Continue Lovenox DVT prophylaxis for [address] Santana plans to see patient back in the office in 2 to 3 weeks for repeat evaluation.
#Acute blood loss anemia 2/2 Fx and surgery
1st unit of PRBC ordered on 06/11/24
2nd unit of PRBC ordered on 06/13/24
Anemia w/u, including FOBT pending
Follow Hgb, watch L hip for bruising, transfuse as to keep Hgb > 8 (hx of cardiac stent)
PPI for PUD ppx
#Concern for Constipation Post-Op
-Abdominal x-ray with mild to moderate diffuse stool burden
-Bowel regimen: Dulcolax suppository, Miralax and Docusate
#Crackles in lungs
#Acute hypoxic insufficiency
most likely 2/2 anesthesia, possible atelectasis
Chest XR with some vascular congestion and suggestion of CHF
Incentive spirometry
Stopped IV fluids as patient eating and drinking
Consulted cardiology and ordered echocardiogram: patient is a little fluid overloaded on echocardiogram, Lasix before and after blood transfusion on 06/13/24,
#Pulsating Mass in Neck
-Appreciate cardiology who ordered carotid ultrasound
#Urinary retention
-Per patient's nurse, on 06/13/24, patient had 1440 cc of urine in her bladder
-Given urinary retention, and the fact that she is getting Lasix, ordered Campos Catheter
#Fall
Head CT without acute findings
#CAD, s/p PCI
s/p cardiac cath in 2020 without culpit lesion
cont ASA, BB, statin
Cardio: cont ASA, no additional perior postOP mgmt
#PreDM vs DM
Insulin SS as needed with accuchecks
HgbA1c is 5.7%
#Hx of Graves disease
TSH mildly elevated to 5.9 - can be normal for the age (less then 7.0), normal FT4
not on Synthroid
#HLD
#Essential HTN
#Presbycusis
#Anxiety/depression d/o
#Osteoporosis
cont home meds
DVT ppx Lovenox as per ortho
Full code
Anticipated Discharge: > 48 hours
Subjective/Interval History
-
Date of Service: June 13, 2024
Patient was seen and examined. Her son was at bedside. She was sleeping comfortably. She has not had a bowel movement yet.
Objective Data
-
Labs:
Laboratory Results
06/13/24
09:07
WBC 9.9
Hgb 7.5 L
Hct 20.8 L*
Plt Count 114 L D
Sodium 130 L
Potassium 4.3
Chloride 101
Carbon Dioxide 21 L
BUN 19 H
Creatinine 0.6
Glucose 136 H
Calcium 8.1 L
Vital Signs:
Vital Signs
Temp Pulse Resp BP Pulse Ox
97.5 F 100 18 117/74 98
06/13/24 11:20 06/13/24 11:20 06/13/24 11:20 06/13/24 11:20 06/13/24 11:20
I&O
06/12/24 06/13/24 06/14/24
06:59 06:59 06:59
Intake Total 2374 / 2374 1480 / 1480
Output Total 1420 / 1420
Balance 2374 / 2374 1480 / 1480 -1420 / -1420
[2024-06-13] MEDS: CRESTOR 5 MG PO (18:06)
[2024-06-13 18:07] LABS: Glucose - Point of Care 124 mg/dl (70-99)
[2024-06-13 21:37] LABS: Glucose - Point of Care 137 mg/dl (70-99)
[2024-06-13] MEDS: TYLENOL 650 MG PO (23:48)
[2024-06-14] VITALS (8 sets, daily range): BP systolic 94–138; BP diastolic 40–68; PULSE 80–87; O2SAT 95; BMI 27.9
[2024-06-14] MEDS: FOSAMAX 70 MG PO (06:38)
[2024-06-14 07:30] LABS: Glucose - Point of Care 121 mg/dl (70-99)
--- NOTE | 2024-06-14 08:26 | W.PN.CD ---
Today's Communication / Plan
-
40mg IV lasix
Impression / Plan
-
BACKGROUND: 83F with coronary artery disease, hypertension, dyslipidemia, type 2 diabetes mellitus, Graves' disease, osteoporosis, and ambulatory dysfunction who presented to the emergency department this morning after she sustained a mechanical
fall.
Solid Waste Management Engineer: Dr. Solano
HFpEF, acute - new diagnosis in the setting of iatrogenic volume repletion.
-CXR with pulmonary congestion, proBNP 704
-negative 1400cc
-continue IV lasix 40IV today
-given alcala will hold off on [id number] right now, reconsider in the future
Acute procedural blood loss anemia,
-S/P 2 UNITS,
-hGB 11.7-->7.5 --await cbc today
-EVALUATION PER medicine
-would follow any transfusion with lasix.
Left carotid appears abnormal - B/L carotid artery US
Mechanical fall with left wrist and hip fracture status post left wrist reduction and cephalomedullary nail, per Ortho
CAD
-Remote SHIRLEY to RCA
-Stable without chest pain
-Continue aspirin
Hypertension, on amlodipine and metoprolol tartrate (confirmed with her this is once daily)
Dyslipidemia, during her prior hospitalization we recommended she increase her rosuvastatin to 10 mg daily, goal LDL <70
Type 2 diabetes mellitus, Hgba1c 5.7%, per primary
Former smoker, quit 2019, continue full cessation
Graves' disease
Subjective:
she feels a bit better. She has no cp.
TTE:06/13/24
CONCLUSIONS
Normal biventricular size and systolic function without regional wall motion
abnormality.
Stage I diastolic dysfunction suggestive of abnormal relaxation.
Aortic sclerosis without stenosis.
Moderate pulmonary hypertension.
Compared to previous echo 06/19/2021, pulmonary pressure has increased from
normal to moderate elevation..
Physical Exam
Vital Signs/Labs
Vital Signs
Temp Pulse Resp BP Pulse Ox
97.5 F 102 18 134/61 96
06/14/24 07:25 06/14/24 07:25 06/14/24 07:25 06/14/24 07:25 06/14/24 07:25
06/13/24 06/14/24 06/15/24
06:59 06:59 06:59
Actual Weight 69.088 kg
06/13/24 09:07
06/13/24 09:07
Magnesium 2.2 mg/dl (1.6-2.3) 06/13/24 09:07
Triglycerides 87 mg/dl (10-149) 06/10/24 05:17
LDL Cholesterol, Calc 55 mg/dl 06/10/24 05:17
VLDL Cholesterol, Calc 17 mg/dl (0-30) 06/10/24 05:17
HDL Cholesterol 71 mg/dl 06/10/24 05:17
TSH 5.90 uIU/ml (0.47-4.68) H 06/09/24 08:24
Free T4 1.71 ng/dl (0.78-2.19) 06/09/24 08:24
06/13/24
13:16
[id number] Pept 704
Physical Exam
Constitutional: No acute distress
Cardiovascular: Rhythm & rate is regular, Pedal edema present (b/l rt>lt) and Systolic murmur present
Respiratory: Respiratory effort normal and Crackles Present (bibasilar)
Neuro/Psych: AO x 3
Data Reviewed
-
Date of Service: June 14, 2024
Medical Decision Making: Review of Case with other Provider (Dr Rios, giving more lasix. )
EKG: Other (tele sinus)
[2024-06-14] MEDS: NOVOLOG FLEXPEN-LOW RESISTANCE SC ×3 (08:30→17:06)
[2024-06-14] MEDS: MIRALAX 17 GRAMS PO (08:30)
[2024-06-14] MEDS: OSCAL CAL 500 500 MG PO (08:30)
[2024-06-14] MEDS: COLACE 100 MG PO ×2 (08:30→20:06)
[2024-06-14] MEDS: PROTONIX IV 40 MG IV (08:31)
[2024-06-14] MEDS: ZOLOFT 50 MG PO (08:31)
[2024-06-14] MEDS: THERAGRAN 1 TABLET PO (08:31)
[2024-06-14] MEDS: LOPRESSOR 50 MG PO (08:31)
[2024-06-14] MEDS: NSS (PRESERVATIVE FREE) 10 ML IV (08:31)
[2024-06-14] MEDS: VITAMIN D3 (cholecalciferol) 50 MCG PO (08:31)
[2024-06-14] MEDS: LOVENOX 40 MG SC (08:31)
[2024-06-14] MEDS: ASPIR LOW (ENTERIC COATED) 81 MG PO (08:31)
[2024-06-14] MEDS: CYANOCOBALAMIN 1000 MCG IM (08:32)
[2024-06-14] MEDS: TYLENOL 650 MG PO (08:41)
[2024-06-14] MEDS: NORVASC 5 MG PO (08:41)
[2024-06-14 09:40] LABS: Hematocrit 23.3 % (37.0-47.0); Hemoglobin 8.3 g/dL (12.0-16.0); Mean Corp Hgb Conc. 35.6 g/dL (33.0-37.0); Mean Corpuscular Hgb 31.6 pg (27.0-31.0); Mean Corpuscular Volume 88.6 fL (81.0-99.0); Mean Platelet Volume 11.2 fL (7.4-10.4); Platelet Count 138 10^3/uL (130-400); Red Blood Cell Count 2.63 10^6/uL (4.20-5.40); Red Cell Dist. Width 14.3 % (11.5-14.5); White Blood Cell Count 10.3 10^3/uL (4.8-10.8)
[2024-06-14 09:45] LABS: Blood Urea Nitrogen 19 mg/dl (7-17); Calcium 8.9 mg/dl (8.4-10.2); Carbon Dioxide 24 mmol/L (22-30); Chloride 101 mmol/L (98-107); Estimated Creatinine Clearance 47 ml/min; Glucose 112 mg/dl (70-99); Magnesium 2.2 mg/dl (1.6-2.3); Potassium 3.9 mmol/L (3.5-5.1); Sodium 136 mmol/L (135-145); eGFR > 60.00
[2024-06-14] MEDS: ROXICODONE 10 MG PO ×2 (10:23→17:03)
[2024-06-14 11:23] LABS: Glucose - Point of Care 148 mg/dl (70-99)
--- NOTE | 2024-06-14 11:46 | W.PN.HOSP.TC ---
Today's Communication/Plan
-
Diuresis as per cardiology
Enema and magnesium citrate to help with patient's constipation
Discussed case with patient's son and daughter
Assessment / Plan
Assessment / Plan
Physical Exam
General: No Apparent Distress
HEENT: Hearing Impaired
Respiratory: Clear to Auscultation Bilaterally
Cardiac: S1 and S2. Regular Rhythm
GI: Soft, Nontender and Nondistended. Positive bowel sounds.
Musculoskeletal: No Cyanosis and No Edema
Skin: Warm. Dry.
Neuro: Awake, Alert and Oriented
Psych: Calm and Apparent Dementia

US Cerebrovascular (as per radiologist's report)
IMPRESSION:
1. Right carotid: Calcified plaque mid to distal common carotid artery. Linear somewhat raised plaque versus intimal in the right internal carotid artery, possible chronic focal dissection versus irregular plaque. Velocity profile consistent with
50-69% stenosis of the internal carotid artery.
2. Left carotid: Calcified plaque mid to distal common carotid artery. No evidence of mass noted on ultrasound (as per indications for the study questioning a mass). Patent left carotid endarterectomy site. Velocity profile consistent with less than
50% internal carotid artery stenosis.
3. Antegrade left vertebral artery flow, retrograde right vertebral artery flow. Retrograde flow can be seen in the setting of a more proximal stenosis or occlusion in the subclavian artery.

Assessment/Plan
83yo F with PMHx of CAD s/p PCI, CEA, DM controlled on diet, osteoporosis, HTN, graves disease brought to the hospital after the fall w/o LOC, when she tripped while walking with the dog. In ED found L radial and ulnar Fx, that was reduced in ED as
well as comminuted and impacted intertrochanteric Fx of L femur. S/P L katt on 06/09/24 and planned for wrist repair on 06/11/24. Developed postOP anemia.
#comminuted and impacted intertrochanteric Fx of L femur status post Insertion left short cephalomedullary nail
#L radial and ulnar Fx status post open reduction internal fixation left distal radius fracture, open reduction internal fixation left distal ulna fracture 2 or more intra-articular fragments distal radius
#Fractures due to combination of trauma and a pathological process of osteoporosis
Pain mgmt
Ortho cosnult: s/p Insertion left short cephalomedullary nail on 06/09/24
PT/OT
Weightbearing to patient's tolerance left lower extremity.
Nonweightbearing left upper extremity in splint.
Okay to bear weight through forearm utilizing platform walker.
Continue Lovenox DVT prophylaxis for [address] Santana plans to see patient back in the office soon after discharge for repeat evaluation.
#Acute blood loss anemia 2/2 Fx and surgery
1st unit of PRBC ordered on 06/11/24
2nd unit of PRBC ordered on 06/13/24 -- with good improvement in Hgb
Anemia work-up, including FOBT pending
Follow Hgb, watch left hip for bruising, transfuse as to keep Hgb > 8 (history of cardiac stent)
PPI for PUD ppx
#Concern for Constipation Post-Op
-Abdominal x-ray with mild to moderate diffuse stool burden
-Bowel regimen: Dulcolax suppository, Miralax and Docusate
-Spoke with on-call scientific illustrator on 06/14/24, and ordered Milk of Molasses enema 500 cc plus Magnesium Citrate 300 mL due to persistent constipation
#Crackles in lungs
#Acute hypoxic insufficiency
Most likely 2/2 anesthesia, possible atelectasis
Chest XR with some vascular congestion and suggestion of CHF
Incentive spirometry
Stopped IV fluids as patient eating and drinking
Consulted cardiology and ordered echocardiogram: patient is a little fluid overloaded on echocardiogram, Lasix before and after blood transfusion on 06/13/24, Lasix as per cardiology
#Pulsating Mass in Neck -- questionable left-sided neck mass
-Appreciate cardiology who ordered carotid ultrasound, results noted as above
-Will discuss with vascular surgery
#Urinary retention
-Per patient's nurse, on 06/13/24, patient had 1440 cc of urine in her bladder
-Given urinary retention, and the fact that she is getting Lasix, ordered Campos Catheter
#Fall
Head CT without acute findings
#CAD, s/p PCI
s/p cardiac cath in 2020 without culpit lesion
cont ASA, BB, statin
Cardio: cont ASA, no additional perior postOP mgmt
#PreDM vs DM
Insulin SS as needed with accuchecks
HgbA1c is 5.7%
#Hx of Graves disease
TSH mildly elevated to 5.9 - can be normal for the age (less then 7.0), normal FT4
not on Synthroid
#HLD
#Essential HTN
#Presbycusis
#Anxiety/depression d/o
#Osteoporosis
cont home meds
DVT ppx Lovenox as per ortho
Full code
Anticipated Discharge: 24 - 48 hours
Subjective/Interval History
-
Date of Service: June 14, 2024
Patient was seen and examined. She has not had a bowel movement yet, no new symptoms or complaints.
Objective Data
-
Labs:
Laboratory Results
06/14/24
09:10
WBC 10.3
Hgb 8.3 L
Hct 23.3 L
Plt Count 138 D
Sodium 136
Potassium 3.9
Chloride 101
Carbon Dioxide 24
BUN 19 H
Creatinine 0.8
Glucose 112 H
Calcium 8.9
Vital Signs:
Vital Signs
Temp Pulse Resp BP Pulse Ox
98.1 F 75 18 94/40 96
06/14/24 11:10 06/14/24 11:10 06/14/24 11:10 06/14/24 11:10 06/14/24 11:10
I&O
06/13/24 06/14/24 06/15/24
06:59 06:59 06:59
Intake Total 1480 / 1480 1870 / 1870
Output Total 3270 / 3270
Balance 1480 / 1480 -1400 / -1400
[2024-06-14] MEDS: CITROMA 300 ML PO (12:53)
[2024-06-14] MEDS: FERRLECIT 110 MG IV (13:01)
--- NOTE | 2024-06-14 13:09 | CM ---
Reviewed the chart notes. CM continues to be available to patient/family and is monitoring medical plan for needs at discharge.
Plan: Discharge to [facility] when medically stable. Precert will be required.
[2024-06-14] MEDS: LASIX 40 MG IV (15:48)
[2024-06-14] MEDS: CRESTOR 5 MG PO (17:03)
[2024-06-14 17:08] LABS: Glucose - Point of Care 133 mg/dl (70-99)
--- NOTE | 2024-06-14 18:46 | PTCARENOTE ---
MOM enema given with moderate results.
[2024-06-14 22:18] LABS: Glucose - Point of Care 212 mg/dl (70-99)
[2024-06-14 23:16] LABS: Blood Urea Nitrogen 25 mg/dl (7-17); Calcium 8.6 mg/dl (8.4-10.2); Carbon Dioxide 27 mmol/L (22-30); Chloride 97 mmol/L (98-107); Estimated Creatinine Clearance 47 ml/min; Glucose 128 mg/dl (70-99); Magnesium 2.7 mg/dl (1.6-2.3); Phosphorus 1.9 mg/dl (2.5-4.5); Potassium 3.6 mmol/L (3.5-5.1); Sodium 131 mmol/L (135-145); eGFR > 60.00
[2024-06-15] VITALS (8 sets, daily range): BP systolic 109–139; BP diastolic 51–73; PULSE 81; O2SAT 94–95; BMI 27.7
[2024-06-15] MEDS: ROXICODONE 10 MG PO ×2 (00:35→09:08)
[2024-06-15 06:22] LABS: ALT (SGPT) 17 U/L (0-35); AST (SGOT) 43 U/L (14-36); Alkaline Phosphatase 114 U/L (38-126); Blood Urea Nitrogen 24 mg/dl (7-17); Calcium 8.4 mg/dl (8.4-10.2); Carbon Dioxide 29 mmol/L (22-30); Chloride 97 mmol/L (98-107); Estimated Creatinine Clearance 47 ml/min; Glucose 115 mg/dl (70-99); Magnesium 2.6 mg/dl (1.6-2.3); Potassium 3.6 mmol/L (3.5-5.1); Sodium 133 mmol/L (135-145); Total Bilirubin 1.2 mg/dl (0.2-1.3); Total Protein 5.1 g/dl (6.3-8.2); eGFR > 60.00
[2024-06-15 07:40] LABS: Glucose - Point of Care 118 mg/dl (70-99)
--- NOTE | 2024-06-15 08:40 | W.PN.CD ---
Today's Communication / Plan
-
-patient should continue on furosemide 20 mg po as needed for a weight gain or 3lbs in a day or 5lbs in 5 days
-given alcala will hold off on sglt2i right now, no h/o chronic UTI so can start as outpatient
-will ask cm to [facility]
-chf team c/s
�Should she need any additional blood, would give Lasix after infusion.
-plan is discharge to SNF, so will ask her to call [phone] to make a follow up appt on discharge from SNF
-I will sign off and return again as needed.
Impression / Plan
-
BACKGROUND: 83F with coronary artery disease, hypertension, dyslipidemia, type 2 diabetes mellitus, Graves' disease, osteoporosis, and ambulatory dysfunction who presented to the emergency department this morning after she sustained a mechanical
fall.
Security Management Specialist: Dr. Solano
HFpEF, acute - new diagnosis in the setting of iatrogenic volume repletion.
-CXR with pulmonary congestion, proBNP 704
-slightly negative with another dose of IV lasix 06/14/24
-back to baseline weight
-patient should continue on furosemide 20 mg po as needed for a weight gain or 3lbs in a day or 5lbs in 5 days
-given alcala will hold off on sglt2i right now, no h/o chronic UTI so can start as outpatient
-will ask cm to [facility]
-chf team c/s
Acute procedural blood loss anemia,
-S/P 2 UNITS,
-hGB 11.7-->7.5 -->8.3 await cbc today
-EVALUATION PER medicine
-would follow any transfusion with lasix.
Left carotid appears abnormal - B/L carotid artery US, Mid Rt carotid stenosis
-on chronic statin
Mechanical fall with left wrist and hip fracture status post left wrist reduction and cephalomedullary nail, per Ortho
CAD
-Remote SHIRLEY to RCA
-Stable without chest pain
-Continue aspirin
Hypertension, on amlodipine and metoprolol tartrate (confirmed with her this is once daily)
Dyslipidemia, during her prior hospitalization we recommended she increase her rosuvastatin to 10 mg daily, goal LDL <70
Type 2 diabetes mellitus, Hgba1c 5.7%, per primary
Former smoker, quit 2019, continue full cessation
Graves' disease
Subjective:
she feels a lot better, breathing impmroved.
TTE:06/13/24
CONCLUSIONS
Normal biventricular size and systolic function without regional wall motion
abnormality.
Stage I diastolic dysfunction suggestive of abnormal relaxation.
Aortic sclerosis without stenosis.
Moderate pulmonary hypertension.
Compared to previous echo 06/19/2021, pulmonary pressure has increased from
normal to moderate elevation
Carotid u/s 06/14/24:
IMPRESSION:
1. Right carotid: Calcified plaque mid to distal common carotid artery. Linear somewhat raised plaque versus intimal in the right internal carotid artery, possible chronic focal dissection versus irregular plaque. Velocity profile consistent with
50-69% stenosis of the internal carotid artery.
2. Left carotid: Calcified plaque mid to distal common carotid artery. No evidence of mass noted on ultrasound (as per indications for the study questioning a mass). Patent left carotid endarterectomy site. Velocity profile consistent with less than
50% internal carotid artery stenosis.
3. Antegrade left vertebral artery flow, retrograde right vertebral artery flow. Retrograde flow can be seen in the setting of a more proximal stenosis or occlusion in the subclavian artery.
Physical Exam
Vital Signs/Labs
Vital Signs
Temp Pulse Resp BP Pulse Ox
98.3 F 95 14 126/54 95
06/15/24 07:40 06/15/24 07:40 06/15/24 07:40 06/15/24 07:40 06/15/24 07:40
06/14/24 06/15/24 06/16/24
06:59 06:59 06:59
Actual Weight 69.088 kg 68.719 kg
06/15/24 05:23
Magnesium 2.6 mg/dl (1.6-2.3) H 06/15/24 05:23
Triglycerides 87 mg/dl (10-149) 06/10/24 05:17
LDL Cholesterol, Calc 55 mg/dl 06/10/24 05:17
VLDL Cholesterol, Calc 17 mg/dl (0-30) 06/10/24 05:17
HDL Cholesterol 71 mg/dl 06/10/24 05:17
TSH 5.90 uIU/ml (0.47-4.68) H 06/09/24 08:24
Free T4 1.71 ng/dl (0.78-2.19) 06/09/24 08:24
06/13/24
13:16
Bry-Z-[id number] Pept 704
Physical Exam
Constitutional: No acute distress
Cardiovascular: Rhythm & rate is regular, Pedal edema is absent, JVD pressure is normal, Systolic murmur absent and Diastolic murmur absent
Respiratory: Respiratory effort normal, Lungs clear to auscul., Wheeze Absent, Crackles Absent and Rhonchi Absent
Neuro/Psych: AO x 3
Data Reviewed
-
Date of Service: June 15, 2024
[2024-06-15 08:55] LABS: Hematocrit 22.3 % (37.0-47.0); Hemoglobin 7.6 g/dL (12.0-16.0); Mean Corp Hgb Conc. 34.1 g/dL (33.0-37.0); Mean Corpuscular Hgb 31.8 pg (27.0-31.0); Mean Corpuscular Volume 93.3 fL (81.0-99.0); Mean Platelet Volume 11.6 fL (7.4-10.4); Platelet Count 147 10^3/uL (130-400); Red Blood Cell Count 2.39 10^6/uL (4.20-5.40); Red Cell Dist. Width 14.5 % (11.5-14.5); White Blood Cell Count 10.3 10^3/uL (4.8-10.8)
[2024-06-15] MEDS: NOVOLOG FLEXPEN-LOW RESISTANCE SC ×2 (09:00→11:48)
[2024-06-15] MEDS: THERAGRAN 1 TABLET PO (09:08)
[2024-06-15] MEDS: CYANOCOBALAMIN 1000 MCG IM (09:09)
[2024-06-15] MEDS: LOPRESSOR 50 MG PO (09:09)
[2024-06-15] MEDS: COLACE 100 MG PO ×2 (09:09→19:58)
[2024-06-15] MEDS: VITAMIN D3 (cholecalciferol) 50 MCG PO (09:09)
[2024-06-15] MEDS: NORVASC 5 MG PO (09:09)
[2024-06-15] MEDS: ASPIR LOW (ENTERIC COATED) 81 MG PO (09:09)
[2024-06-15] MEDS: ZOLOFT 50 MG PO (09:09)
[2024-06-15] MEDS: NSS (PRESERVATIVE FREE) 10 ML IV (09:10)
[2024-06-15] MEDS: LOVENOX 40 MG SC (09:10)
[2024-06-15] MEDS: MIRALAX PO (09:10)
[2024-06-15] MEDS: PROTONIX IV 40 MG IV (09:11)
[2024-06-15] MEDS: NEUTRA-PHOS POWDER PACKET 250 MG PO ×3 (09:12→18:37)
--- NOTE | 2024-06-15 10:28 | W.PN.HOSP.TC ---
Addendum entered and electronically signed by Sukhdev Echavarria MD 06/15/24 11:11:
I spoke with Dr. Giron of vascular surgery:
Since the patient does not have symptomatic carotid artery stenosis, and the initial ultrasound was done for possible left neck mass and the left carotid artery was fine on ultrasound, there is no need for inpatient vascular surgery consultation.
Follow-up with Dr. Giron outpatient in 2 to 3 weeks. After discussing with Dr. Giron, ordered CTA of the neck to evaluate mass and also evaluate the carotids.
Original Note:
Today's Communication/Plan
-
Hgb dropped again to 7.6 today -- continue to monitor
Ortho to re-eval surgical sites
Ordered stool for occult blood, consulted hematology, will consider GI consultation
Good bowel movement after enema and magnesium citrate
Assessment / Plan
Assessment / Plan
Physical Exam
General: No Apparent Distress
HEENT: Hearing Impaired
Respiratory: Clear to Auscultation Bilaterally
Cardiac: S1 and S2. Regular Rhythm
GI: Soft, Nontender and Nondistended. Positive bowel sounds.
Musculoskeletal: No Cyanosis and No Edema
Skin: Warm. Dry.
Neuro: Awake, Alert and Oriented
Psych: Calm and Apparent Dementia

US Cerebrovascular (as per radiologist's report)
IMPRESSION:
1. Right carotid: Calcified plaque mid to distal common carotid artery. Linear somewhat raised plaque versus intimal in the right internal carotid artery, possible chronic focal dissection versus irregular plaque. Velocity profile consistent with
50-69% stenosis of the internal carotid artery.
2. Left carotid: Calcified plaque mid to distal common carotid artery. No evidence of mass noted on ultrasound (as per indications for the study questioning a mass). Patent left carotid endarterectomy site. Velocity profile consistent with less than
50% internal carotid artery stenosis.
3. Antegrade left vertebral artery flow, retrograde right vertebral artery flow. Retrograde flow can be seen in the setting of a more proximal stenosis or occlusion in the subclavian artery.

Assessment/Plan
83yo F with PMHx of CAD s/p PCI, CEA, DM controlled on diet, osteoporosis, HTN, graves disease brought to the hospital after the fall w/o LOC, when she tripped while walking with the dog. In ED found L radial and ulnar Fx, that was reduced in ED as
well as comminuted and impacted intertrochanteric Fx of L femur. S/P L katt on 06/09/24 and planned for wrist repair on 06/11/24. Developed postOP anemia.
#comminuted and impacted intertrochanteric Fx of L femur status post Insertion left short cephalomedullary nail
#L radial and ulnar Fx status post open reduction internal fixation left distal radius fracture, open reduction internal fixation left distal ulna fracture 2 or more intra-articular fragments distal radius
#Fractures due to combination of trauma and a pathological process of osteoporosis
Pain mgmt
Ortho cosnult: s/p Insertion left short cephalomedullary nail on 06/09/24
PT/OT
Weightbearing to patient's tolerance left lower extremity.
Nonweightbearing left upper extremity in splint.
Okay to bear weight through forearm utilizing platform walker.
Continue Lovenox DVT prophylaxis for [address] Santana plans to see patient back in the office soon after discharge for repeat evaluation.
#Acute blood loss anemia 2/2 Fx and surgery
Patient getting IV iron
1st unit of PRBC ordered on 06/11/24
2nd unit of PRBC ordered on 06/13/24 -- with good improvement in Hgb -- but Hgb then dropped again to 7.6 on 06/15/24
Ordered stool for occult blood, consulted hematology, asked ortho to check for any re-bleeding in the surgical sites, will consider GI consultation
Follow Hgb, watch left hip for bruising, transfuse as to keep Hgb > 8 (history of cardiac stent). Hgb 7.6 on 06/15/24 is acceptable for now however if Hgb persistently less than 8, or significant drop, then will need transfusion of PRBCs.
PPI for PUD ppx
#Concern for Constipation Post-Op
-Abdominal x-ray with mild to moderate diffuse stool burden
-Bowel regimen: Dulcolax suppository, Miralax and Docusate
-Spoke with on-call corporate responsibility officer on 06/14/24, and ordered Milk of Molasses enema 500 cc plus Magnesium Citrate 300 mL due to persistent constipation --> with multiple large bowel movements
#Crackles in lungs
#Acute hypoxic insufficiency suspected secondary to Acute HFpEF
#Acute HFpEF
Most likely 2/2 anesthesia, possible atelectasis
Chest XR with some vascular congestion and suggestion of CHF
Incentive spirometry
Stopped IV fluids as patient eating and drinking
Consulted cardiology and ordered echocardiogram: patient is a little fluid overloaded on echocardiogram, Lasix before and after blood transfusion on 06/13/24, Lasix as per cardiology
Continue on furosemide 20 mg po as needed for a weight gain or 3lbs in a day or 5lbs in 5 days
Discussed with cardiology, given alcala catheter will hold off on sglt2i right now, no h/o chronic UTI so can start as outpatient
#Pulsating Mass in Neck -- questionable left-sided neck mass
-Appreciate cardiology who ordered carotid ultrasound, results noted as above
-Check full neck ultrasound
-Consulted vascular surgery, appreciate evaluation and recommendations
#Urinary retention
-Per patient's nurse, on 06/13/24, patient had 1440 cc of urine in her bladder
-Given urinary retention, and the fact that she received Lasix, ordered Alcala Catheter
-Will attempt alcala catheter voiding trial today
#Fall
Head CT without acute findings
#CAD, s/p PCI
s/p cardiac cath in 2020 without culpit lesion
cont ASA, BB, statin
Cardio: cont ASA, no additional perior postOP mgmt
#PreDM vs DM
Insulin SS as needed with accuchecks
HgbA1c is 5.7%
#Hx of Graves disease
TSH mildly elevated to 5.9 - can be normal for the age (less then 7.0), normal FT4
not on Synthroid
#HLD
#Essential HTN
#Presbycusis
#Anxiety/depression d/o
#Osteoporosis
cont home meds
DVT ppx Lovenox as per ortho
Full code
Anticipated Discharge: > 48 hours
Subjective/Interval History
-
Date of Service: June 15, 2024
Patient was seen and examined. She was more alert this morning, was able to interact well, and was eating breakfast when seen.
Objective Data
-
Labs:
Laboratory Results
06/14/24 06/15/24 06/15/24
22:56 05:23 13:30
WBC 10.3 Pending
Hgb 7.6 L Pending
Hct 22.3 L Pending
Plt Count 147 Pending
Sodium 131 L 133 L
Potassium 3.6 3.6
Chloride 97 L 97 L
Carbon Dioxide 27 29
BUN 25 H 24 H
Creatinine 0.8 0.8
Glucose 128 H 115 H
Calcium 8.6 8.4
Total Bilirubin 1.2
AST 43 H
ALT 17
Alkaline Phosphatase 114
Vital Signs:
Vital Signs
Temp Pulse Resp BP Pulse Ox
98.3 F 95 14 126/54 95
06/15/24 07:40 06/15/24 07:40 06/15/24 07:40 06/15/24 07:40 06/15/24 07:40
I&O
06/14/24 06/15/2424
06:59 06:59 06:59
Intake Total 1870 / 1870 1070 / 1070
Output Total 3270 / 3270 1800 / 1800
Balance -1400 / -1400 -730 / -730
[2024-06-15 11:46] LABS: Glucose - Point of Care 131 mg/dl (70-99)
--- NOTE | 2024-06-15 12:04 | CON.ONC ---
Impression
Impression
Admission Hgb 11.7g/dL, normocytic and without other cytopenias, renal dysfunction -unclear if represents blood loss from fall or other etiology
Post operative anemia s/p 2 unit prbc during hospitalization, last 06/13
KENZIE with ferritin 63 receiving IV iron
Plan
Plan
agree with IV iron
transfuse prn, defer to cardiology if add'l diuretics are needed with transfusion
Repeat iron studies with PCP in 4-6 weeks, if remains iron deficient or anemia persistent/worsens then would refer to hematology outpatient
Hematology will sign off, please reach out with any questions or concerns.
Patient History
History of Present Illness
83yo F presented to ER 06/09/2024 after a fall. She reports that she was walking her dog and sustained a traumatic mechanical fall for which she sustained a L radial and ulnar Fx as well as intertrochanteric Fx of L femur. She underwent insertion
left short cephalomedullary nail and an open reduction internal fixation left distal radius fracture, open reduction internal fixation left distal ulna fracture 2 or more intra-articular fragments distal radius with orthopedics. Hospital course c/b
acute HFpEF, post op anemia, urinary retention and constipation postoperatively. Hematology consulted for anemia evaluation.
She is s/p 2 unit prbc during hospitalization post-operatively. Prior to admission she deneis any overt bleeding or atypical bruising. Her last colonoscopy is reports as benign by pt >10 years ago. She reports constipation since hospitalization
but otherwise no bowel changes, weight loss, or changes in appetite prior to admission.
Son at bedside during visit.
Past-Medical/Surgical History
PMH HTN, CAD, HLD, DM2, Graves dz
PSH as above
Social: retired bank, . Lives alone. former smoker, denies etoh or recreational drugs
Family brother with lung and colon cancer
Patient Medication
�Medication �Instructions �Recorded �Confirmed �Last Taken �Type
aspirin 81 mg tablet,delayed 81 mg PO DAILY Blood clot 02/06/1406/09/24 06/08/24 History
release prevention/tx
metoprolol tartrate 50 mg tablet 50 mg PO DAILY Blood pressure 06/17/21 06/09/24 06/08/24 History
alendronate 70 mg tablet (Fosamax) 70 mg PO WE osteoporosis 06/09/24 06/09/24 06/07/24 History
amlodipine 5 mg tablet (Norvasc) 5 mg PO DAILY blood pressure 06/09/24 06/09/24 06/08/24 History
calcium carbonate (Calcium 600) 600 mg PO DAILY supplement 06/09/24 06/09/24 06/08/24 History
cholecalciferol (vitamin D3) 50 50 mcg PO DAILY supplement 06/09/24 06/09/24 06/08/24 History
mcg (2,000 unit) tablet (Vitamin
D3)
rosuvastatin 10 mg tablet 5 mg PO QPM hyperlipidemia 06/09/24 06/09/24 06/08/24 History
sertraline 50 mg tablet 50 mg PO DAILY depression/anxiety 06/09/24 06/09/24 06/08/24 History
therapeutic multivitamin 1 tab PO DAILY supplement 06/09/24 06/09/24 06/08/24 History
vitamins A,C,Z-oagc-pcizzz 4,296 1 cap PO BID supplement 06/09/24 06/09/24 06/08/24 History
mcg-226 mg-90 mg capsule
Active Medications
Generic Name Dose Route Start Last Admin
Trade Name Freq PRN Reason Stop Dose Admin
Acetaminophen 650 mg 06/09/24 13:19 06/14/24 08:41
Acetaminophen 325 Mg Tablet PO 07/07/24 13:18 650 mg
Q4HPRN PRN Administration
mild pain/[place]/temp> 100.4F
Albuterol/Ipratropium 3 ml 06/09/24 13:19
Ipratropium 0.5/Albuterol 3 Mg (3 Ml Ampul) INH
R Q4HPRN PRN
shortness of breath
Protocol
Alendronate Sodium 70 mg 06/14/24 06:00 06/14/24 06:38
Alendronate 70 Mg Tablet PO 07/12/24 05:59 70 mg
WE@0600 KACIE Administration
Amlodipine Besylate 5 mg 06/10/24 08:00 06/15/24 09:09
Amlodipine 5 Mg Tablet PO 07/08/24 07:59 5 mg
DAILY KACIE Administration
Aspirin 81 mg 06/10/24 08:00 06/15/24 09:09
Aspirin 81 Mg (Enteric Coated) Tablet PO 07/08/24 07:59 81 mg
DAILY KACIE Administration
Bisacodyl 10 mg 06/09/24 13:19
Bisacodyl 10 Mg Rectal Suppository RECTAL 07/07/24 13:18
[id number] PRN
constipation
Calcium Carbonate 500 mg 06/10/24 08:00 06/14/24 08:30
Calcium Carbonate 500 Mg Tablet PO 07/08/24 07:59 500 mg
DAILY KACIE Administration
Cholecalciferol 50 mcg 06/10/24 08:00 06/15/24 09:09
Cholecalciferol (Vitamin D3) 50 Mcg Tablet (2,000 Units) PO 07/08/24 07:59 50 mcg
DAILY KACIE Administration
Cyanocobalamin 1,000 mcg 06/11/24 11:00 06/15/24 09:09
Cyanocobalamin (1000 Mcg/Ml) 1 Ml Vial IM 07/09/24 10:59 1,000 mcg
DAILY KACIE Administration
Dextrose 12.5 grams 06/09/24 13:19
Dextrose 50% (0.5 Grams/Ml) 50 Ml Syringe IV 07/07/24 13:18
[id number] PRN
hypoglycemia
Protocol
Docusate Sodium 100 mg 06/09/24 20:00 06/15/24 09:09
Docusate Sodium 100 Mg Capsule PO 07/07/24 19:59 100 mg
BID KACIE Administration
Enoxaparin Sodium 40 mg 06/10/24 08:00 06/15/24 09:10
Enoxaparin Sodium 40 Mg/0.4 Ml Syringe SC 07/08/24 07:59 40 mg
DAILY KACIE Administration
Glucagon 1 mg 06/09/24 13:19
Glucagon 1 Mg Vial IM 07/07/24 13:18
PRN PRN
hypoglycemia
Protocol
Ferric Sodium Gluconate 110 mls @ 110 mls/hr 06/11/24 14:00 06/14/24 13:01
Complex 125 mg/ Sodium IV 06/15/24 14:59 110 mls
Chloride DAILY@1400 KACIE Administration
Insulin Aspart 0 units 06/11/24 23:02 06/15/24 11:48
Insulin Aspart Low Resistance 300 Units/3 Ml Pen.Injctr SC 07/09/24 05:59 Not Given
AC KACIE
Protocol
Metoprolol Tartrate 50 mg 06/10/24 08:00 06/15/24 09:09
Metoprolol 50 Mg Regular Release Tablet PO 07/08/24 07:59 50 mg
DAILY KACIE Administration
Multivitamins Therapeutic 1 tablet 06/10/24 08:00 06/15/24 09:08
Multivitamin Tablet PO 07/08/24 07:59 1 tablet
DAILY KACIE Administration
Ondansetron HCl 4 mg 06/09/24 13:24
Ondansetron 4 Mg/2 Ml Vial IV 07/07/24 13:23
Q6HPRN PRN
nausea/vomiting
Oxycodone HCl 5 mg 06/15/24 10:42
Oxycodone 5 Mg Regular Release Tablet PO 06/29/24 10:41
Q4HPRN PRN
moderate pain
Pantoprazole Sodium 40 mg 06/11/24 08:00 06/15/24 09:11
Pantoprazole Sodium 40 Mg/10 Ml Vial IV 07/09/24 07:59 40 mg
DAILY KACIE Administration
Polyethylene Glycol 17 grams 06/13/24 13:00 06/15/24 09:10
Polyethylene Glycol Powder 17 Grams Packet PO 07/11/24 12:59 Not Given
DAILY KACIE
Potassium Phosphate 250 mg 06/15/24 09:00 06/15/24 09:12
Neutra-Phos Powder Concentrate (250 Mg) Packet PO 06/15/24 18:01 250 mg
PCHS KACIE Administration
Rosuvastatin Calcium 5 mg 06/09/24 18:00 06/14/24 17:03
Rosuvastatin (Crestor) 5 Mg Tablet PO 07/07/24 17:59 5 mg
QPM KACIE Administration
Senna/Docusate Sodium 1 tablet 06/09/24 13:19 06/12/24 10:52
Docusate W/Senna (Maryse-Colace) Tablet PO 07/07/24 13:18 1 tablet
BIDPRN PRN Administration
constipation
Sertraline HCl 50 mg 06/10/24 08:00 06/15/24 09:09
Sertraline 50 Mg Tablet PO 07/08/24 07:59 50 mg
DAILY KACIE Administration
Sodium Chloride 0 flush 06/09/24 14:00 06/13/24 08:17
Sodium Chloride 0.9% (Flush) Syringe IV 07/07/24 13:59 2 flush
PER PROTOCOL KACIE Administration
Sodium Chloride 10 ml 06/11/24 08:00 06/15/24 09:10
Sodium Chloride 0.9% (Preservative Free) 10 Ml Vial IV 07/09/24 07:59 10 ml
DAILY KACIE Administration
Review of Systems
-
ROS notable for HPI, otherwise negative
Physical Exam
-
General: Negative No Apparent Distress
HEENT: Moist Mucous Membranes and Other ([place]); Negative Jaundice
Cardiology: S1 and S2
Pulmonary: Clear (diminished bilateral bases)
GI: Soft
Extremities: Other (LUE with dressing with bloody drainage. )
Neurology: Other (speech clear, A&O3)
Labs
Lab Results
WBC 10.3 10^3/uL (4.8-10.8) 06/15/24 05:23
RBC 2.39 10^6/uL (4.20-5.40) L 06/15/24 05:23
Hgb 7.6 g/dL (12.0-16.0) L 06/15/24 05:23
Hct 22.3 % (37.0-47.0) L 06/15/24 05:23
MCV 93.3 fL (81.0-99.0) 06/15/24 05:23
MCH 31.8 pg (27.0-31.0) H 06/15/24 05:23
MCHC 34.1 g/dL (33.0-37.0) 06/15/24 05:23
RDW 14.5 % (11.5-14.5) 06/15/24 05:23
Plt Count 147 10^3/uL (130-400) 06/15/24 05:23
MPV 11.6 fL (7.4-10.4) H 06/15/24 05:23
Abs Immat Gran (auto) 0.1 10^3/uL (0-0.05) H 06/12/24 06:10
Absolute Neuts (auto) 8.1 10^3/uL (1.4-6.5) H 06/12/24 06:10
Absolute Lymphs (auto) 0.6 10^3/uL (1.2-3.4) L 06/12/24 06:10
Absolute Monos (auto) 0.8 10^3/uL (0.1-0.6) H 06/12/24 06:10
Absolute Eos (auto) 0.0 10^3/uL (0-0.7) 06/12/24 06:10
Absolute Basos (auto) 0.0 10^3/uL (0-0.2) 06/12/24 06:10
Immature Gran % 0.9 % (0-0.5) H 06/12/24 06:10
Neutrophils % 84.2 % (42.2-75.2) H 06/12/24 06:10
Lymphocytes % 6.5 % (20.5-51.1) L 06/12/24 06:10
Monocytes % 8.2 % (1.7-9.3) 06/12/24 06:10
Eosinophils % 0.0 % (0-6) 06/12/24 06:10
Basophils % 0.2 % (0-2) 06/12/24 06:10
Creatinine 0.8 mg/dL (0.6-1.0) 06/15/24 05:23
Vital Signs
Vital Signs
Temp Pulse Resp BP Pulse Ox
98.5 F 79 14 114/53 95
06/15/24 11:04 06/15/24 11:04 06/15/24 11:04 06/15/24 11:04 06/15/24 11:04
--- NOTE | 2024-06-15 13:27 | CM ---
Addendum entered by Rupal Pierre 06/15/24 22:20:
i have faxed updated clinicals to daniel as requested.
Original Note:
received a call from daniel at [facility].her phone number is [phone] or office [phone] will need updated clinicals faxed to them at [phone].daniel would like to know tomorrow if patient will be dc on the
weekend.patient will need insurance precert.
[2024-06-15 13:46] LABS: Hematocrit 20.6 % (37.0-47.0); Hemoglobin 7.2 g/dL (12.0-16.0); Mean Corpuscular Hgb 32.3 pg (27.0-31.0); Mean Corpuscular Volume 92.4 fL (81.0-99.0); Mean Platelet Volume 11.3 fL (7.4-10.4); Platelet Count 142 10^3/uL (130-400); Red Blood Cell Count 2.23 10^6/uL (4.20-5.40); Red Cell Dist. Width 14.6 % (11.5-14.5); White Blood Cell Count 9.7 10^3/uL (4.8-10.8)
[2024-06-15] MEDS: FERRLECIT 110 MG IV (14:25)
--- NOTE | 2024-06-15 15:38 | PTCARENOTE ---
hemoccult on pts stool from 06/15/24 @1500 was negative
slide 0232 3R exp 11/29
developer [id number] exp 07/30
[2024-06-15 17:31] LABS: Glucose - Point of Care 163 mg/dl (70-99)
[2024-06-15] MEDS: ROXICODONE 5 MG PO (18:37)
[2024-06-15] MEDS: CRESTOR 5 MG PO (18:37)
[2024-06-15] MEDS: NOVOLOG FLEXPEN-LOW RESISTANCE 1 UNITS SC (18:37)
--- NOTE | 2024-06-15 18:45 | W.PN.UPDATE ---
Update Note
Progress Note Update
Patient seen evaluated bedside. Dressing and splint were removed. There was some mild oozing noted from the ulnar incision. Suspect likely evacuation of hematoma. Patient was resplinted and dressed. Recommend continue with elevation and ice to
the left upper extremity. Will discuss with primary team holding anticoagulation for the next couple days to allow for stabilization of hemoglobin hopefully mild venous ooze will subside. Will continue to follow patient.
[2024-06-15 20:20] LABS: Hematocrit 22.6 % (37.0-47.0); Hemoglobin 7.8 g/dL (12.0-16.0); Mean Corp Hgb Conc. 34.5 g/dL (33.0-37.0); Mean Corpuscular Volume 92.6 fL (81.0-99.0); Mean Platelet Volume 10.8 fL (7.4-10.4); Platelet Count 149 10^3/uL (130-400); Red Blood Cell Count 2.44 10^6/uL (4.20-5.40); White Blood Cell Count 10.3 10^3/uL (4.8-10.8)
[2024-06-15 21:41] LABS: Glucose - Point of Care 120 mg/dl (70-99)
[2024-06-16] VITALS (7 sets, daily range): BP systolic 118–147; BP diastolic 49–75; PULSE 85; O2SAT 95
[2024-06-16 06:21] LABS: Hematocrit 23.2 % (37.0-47.0); Hemoglobin 7.7 g/dL (12.0-16.0); Mean Corp Hgb Conc. 33.2 g/dL (33.0-37.0); Mean Corpuscular Hgb 32.2 pg (27.0-31.0); Mean Corpuscular Volume 97.1 fL (81.0-99.0); Platelet Count 149 10^3/uL (130-400); Red Blood Cell Count 2.39 10^6/uL (4.20-5.40); Red Cell Dist. Width 14.8 % (11.5-14.5); White Blood Cell Count 8.3 10^3/uL (4.8-10.8)
[2024-06-16 06:45] LABS: Blood Urea Nitrogen 19 mg/dl (7-17); Calcium 8.3 mg/dl (8.4-10.2); Carbon Dioxide 29 mmol/L (22-30); Chloride 97 mmol/L (98-107); Estimated Creatinine Clearance 47 ml/min; Glucose 110 mg/dl (70-99); Magnesium 2.4 mg/dl (1.6-2.3); Phosphorus 2.7 mg/dl (2.5-4.5); Potassium 3.6 mmol/L (3.5-5.1); Sodium 133 mmol/L (135-145); eGFR > 60.00
[2024-06-16 07:28] LABS: Glucose - Point of Care 116 mg/dl (70-99)
[2024-06-16] MEDS: NORVASC 5 MG PO (08:44)
[2024-06-16] MEDS: MIRALAX 17 GRAMS PO (08:44)
[2024-06-16] MEDS: NOVOLOG FLEXPEN-LOW RESISTANCE SC ×3 (08:44→17:23)
[2024-06-16] MEDS: VITAMIN D3 (cholecalciferol) 50 MCG PO (08:45)
[2024-06-16] MEDS: ZOLOFT 50 MG PO (08:45)
[2024-06-16] MEDS: COLACE 100 MG PO (08:45)
[2024-06-16] MEDS: ASPIR LOW (ENTERIC COATED) 81 MG PO (08:45)
[2024-06-16] MEDS: THERAGRAN 1 TABLET PO (08:45)
[2024-06-16] MEDS: CYANOCOBALAMIN 1000 MCG IM (08:45)
[2024-06-16] MEDS: LOPRESSOR 50 MG PO (08:45)
[2024-06-16] MEDS: NSS (PRESERVATIVE FREE) 10 ML IV (08:46)
[2024-06-16] MEDS: PROTONIX IV 40 MG IV (08:46)
[2024-06-16] MEDS: ROXICODONE 5 MG PO (08:49)
[2024-06-16] MEDS: FLUSH (NSS) 1 FLUSH IV (08:50)
[2024-06-16 11:39] LABS: Glucose - Point of Care 141 mg/dl (70-99)
--- NOTE | 2024-06-16 13:17 | W.PN.UPDATE ---
Update Note
Progress Note Update
Patient seen evaluate bedside. Left upper extremity splint dressing were changed. There is no active drainage or venous ooze from ulnar incision. This represents improvement from yesterday. Dressing was changed and placed back into splint.
Would recommend continued elevation and ice to left upper extremity. Would continue to hold Lovenox for a day or 2 and then can resume 81 mg aspirin twice daily for DVT prophylaxis. I would like to see patient back in the office in 1 week. Please
reach out any questions or concerns.
--- NOTE | 2024-06-16 13:31 | W.PN.HOSP.TC ---
Today's Communication/Plan
-
Discharge today
Assessment / Plan
Assessment / Plan
Physical Exam
General: No Apparent Distress
HEENT: Hearing Impaired
Respiratory: Clear to Auscultation Bilaterally
Cardiac: S1 and S2. Regular Rhythm
GI: Soft, Nontender and Nondistended. Positive bowel sounds.
Musculoskeletal: No Cyanosis and No Edema. LUE covered in dressing and wrap. LLE surgical site dressing/bandage intact.
Skin: Warm. Dry.
Neuro: Awake, Alert and Oriented
Psych: Calm and Apparent Dementia

US Cerebrovascular (as per radiologist's report)
IMPRESSION:
1. Right carotid: Calcified plaque mid to distal common carotid artery. Linear somewhat raised plaque versus intimal in the right internal carotid artery, possible chronic focal dissection versus irregular plaque. Velocity profile consistent with
50-69% stenosis of the internal carotid artery.
2. Left carotid: Calcified plaque mid to distal common carotid artery. No evidence of mass noted on ultrasound (as per indications for the study questioning a mass). Patent left carotid endarterectomy site. Velocity profile consistent with less than
50% internal carotid artery stenosis.
3. Antegrade left vertebral artery flow, retrograde right vertebral artery flow. Retrograde flow can be seen in the setting of a more proximal stenosis or occlusion in the subclavian artery.
CT Neck Angio W/wo Iv Contrast (as per radiologist's report)
IMPRESSION:
Stenosis of the right subclavian artery seen proximal to the origin of the right vertebral artery correlating with findings seen on recent ultrasound.
Proximal right vertebral artery not well opacified with contrast suggesting the possibility of some short segment proximal stenoses with possible reconstitution of markedly small relative small size vertebral artery mid and distally.
Markedly tortuous left internal carotid artery extending superficially anteriorly ikely accounting for 'pulsatile masslike area'.
No findings to suggest hemodynamically significant stenosis of the proximal internal carotid arteries bilaterally. Findings suspicious for ulcerated plaque in the proximal right internal carotid artery.
CT Head (as per radiologist's report)
IMPRESSION:
No acute intracranial abnormality.
Mild parenchymal volume loss commensurate with the patient's age.
Mild sequela of chronic small vessel disease.

Assessment/Plan
83yo F with PMHx of CAD s/p PCI, CEA, DM controlled on diet, osteoporosis, HTN, graves disease brought to the hospital after the fall w/o LOC, when she tripped while walking with the dog. In ED found L radial and ulnar Fx, that was reduced in ED as
well as comminuted and impacted intertrochanteric Fx of L femur. S/P L katt on 06/09/24 and planned for wrist repair on 06/11/24. Developed postOP anemia.
#comminuted and impacted intertrochanteric Fx of L femur status post Insertion left short cephalomedullary nail
#L radial and ulnar Fx status post open reduction internal fixation left distal radius fracture, open reduction internal fixation left distal ulna fracture 2 or more intra-articular fragments distal radius
#Fractures due to combination of trauma and a pathological process of osteoporosis
Pain mgmt
Ortho consult: s/p Insertion left short cephalomedullary nail on 06/09/24
PT/OT
Weightbearing to patient's tolerance left lower extremity.
Nonweightbearing left upper extremity in splint.
Okay to bear weight through forearm utilizing platform walker.
Continued elevation and ice to left upper extremity
Discontinue Lovenox DVT prophylaxis as per Dr. Santana (orthopedic surgeon) - continue to hold Lovenox for a day or 2 and then can resume 81 mg aspirin twice daily (until 30 days post-op) for DVT prophylaxis...after 30 days post-op resume Aspirin
[address] Santana plans to see patient back in the office by 06/23/24
#Acute blood loss anemia 2/2 Fx and surgery
Patient received IV iron
Continue iron supplementation with PO iron
Repeat iron studies with PCP in 4-6 weeks, if patient remains iron deficient or anemia persistent/worsens then would refer to hematology outpatient
1st unit of PRBC ordered on 06/11/24
2nd unit of PRBC ordered on 06/13/24 -- with good improvement in Hgb -- but Hgb then dropped again to 7.6 on 06/15/24
Hgb now stable in the upper 7's -- no further blood transfusion needed at this time, on-call flame burner Dr. Mcgee is onboard with this plan
PPI for PUD ppx
#Concern for Constipation Post-Op
-Abdominal x-ray with mild to moderate diffuse stool burden
-Bowel regimen: Dulcolax suppository, Miralax and Docusate
-Spoke with on-call wildland fire fighter on 06/14/24, and ordered Milk of Molasses enema 500 cc plus Magnesium Citrate 300 mL due to persistent constipation --> with resulting multiple large bowel movements
#Crackles in lungs
#Acute hypoxic insufficiency suspected secondary to Acute HFpEF
#Acute HFpEF
Most likely 2/2 anesthesia, possible atelectasis
Chest XR with some vascular congestion and suggestion of CHF
Incentive spirometry
Stopped IV fluids as patient eating and drinking
Consulted cardiology and ordered echocardiogram: patient is a little fluid overloaded on echocardiogram, Lasix before and after blood transfusion on 06/13/24, Lasix as per cardiology
Continue on furosemide 20 mg po as needed for a weight gain or 3lbs in a day or 5lbs in 5 days
Discussed with cardiology, given alcala catheter will hold off on [id number] right now, no h/o chronic UTI so can start as outpatient
#Pulsating Mass in Neck -- questionable left-sided neck mass
-Appreciate cardiology who ordered carotid ultrasound, results noted as above
-Consulted vascular surgery, appreciate evaluation and recommendations: Dr. Giron reviewed patient's CTA neck and neck ultrasound studies, and recommended patient follow-up outpatient regarding these studies
#Urinary retention
-Per patient's nurse, on 06/13/24, patient had 1440 cc of urine in her bladder
-Given urinary retention, and the fact that she received Lasix, ordered Alcala Catheter
-Attempted voiding trial on 06/16/24 -- patient still retaining 669 mL of urine without Alcala catheter -- plan for discharge with Alcala Catheter and voiding trial with urology outpatient in 1 week
#Fall
Head CT without acute findings
#CAD, s/p PCI
s/p cardiac cath in 2020 without culpit lesion
cont ASA, BB, statin
Cardio: cont ASA, no additional perior postOP mgmt
#PreDM vs DM
Insulin SS as needed with accuchecks
HgbA1c is 5.7%
#Hx of Graves disease
TSH mildly elevated to 5.9 - can be normal for the age (less then 7.0), normal FT4
not on Synthroid
#HLD
#Essential HTN
#Presbycusis
#Anxiety/depression d/o
#Osteoporosis
cont home meds
DVT PPx : Aspirin 81 mg daily for now, will switch to Aspirin 81 mg BID starting tomorrow
Code Status: Full code
More than 30 minutes spent in discharge including
Final examination of the patient
Summarizing hospital stay
Instructions for continuing care to all relevant caregivers
Preparation of discharge records, prescriptions, and referral forms
Total time spent (in minutes): 42
Anticipated Discharge: Today
Subjective/Interval History
-
Date of Service: June 16, 2024
Patient was seen and examined. She was doing well and denied any new symptoms or complaints.
Objective Data
-
Labs:
Laboratory Results
06/16/24
05:16
WBC 8.3
Hgb 7.7 L
Hct 23.2 L
Plt Count 149
Sodium 133 L
Potassium 3.6
Chloride 97 L
Carbon Dioxide 29
BUN 19 H
Creatinine 0.8
Glucose 110 H
Calcium 8.3 L
Vital Signs:
Vital Signs
Temp Pulse Resp BP Pulse Ox
98.0 F 85 18 127/64 96
06/16/24 11:20 06/16/24 11:20 06/16/24 11:20 06/16/24 11:20 06/16/24 11:20
I&O
06/15/24 06/16/24 06/17/24
06:59 06:59 06:59
Intake Total 1070 / 1070 1380 / 1380
Output Total 1800 / 1800 1550 / 1550
Balance -730 / -730 -170 / -170
--- NOTE | 2024-06-16 14:33 | CM ---
Addendum entered by Tammi Hagen RN 06/16/24 14:57:
Call report to: [phone], ext [phone]
Fax report to: [phone]
Original Note:
Reviewed the chart notes and spoke with the patient at the bedside. IMM signed and placed on the chart. Auth obtained for discharge to [facility].
Auth #[id number]; 5 days (06/16-06/20); NRD 06/20; Call report to: [phone]
Medical necessity and transport forms on the chart.
--- NOTE | 2024-06-16 16:07 | W.DCSUMMARY ---
Discharge Summary
Discharge Data
Date of Admission: 06/09/24
Date of Discharge: 06/16/24
Total time spent discharging patient (in min): 42
-
Pending Results: No
Hospital Course
83 y/o female with past medical history of CAD, CEA, DM controlled on diet, osteoporosis, hypertension and graves disease brought to the hospital after the fall without loss of consciousness; she had tripped while walking with her dog. She was found
to have left radial and ulnar fracture, as well as comminuted and impacted intertrochanteric fracture of the left femur. Orthopedics was consulted, cardiology was also consulted for pre-op risk assessment, and on June 09, 2024, patient had
insertion of left short cephalomedullary nail. On June 11, 2024, patient had an open reduction internal fixation left distal radius fracture, open reduction internal fixation left distal ulna fracture 2 or more intra-articular fragments distal
radius given her left upper extremity fracture. Echocardiogram was done which showed increased pulmonary artery pressure compared to a previous echocardiogram (however please see full echocardiogram report from June 13, 2024 for all the
details).
Patient was found to be hypoxic and diagnosed with acute heart failure with preserved ejection fraction, which was a new diagnosis. Patient was given intravenous diuresis.
Patient hemoglobin dropped to less than 8 (goal was 8 due to her history of coronary artery disease), therefore she received transfusions of packed red blood cells: she received a total of 2 units of blood. Although her Hgb was in the upper part of
the 7 to 8 range on discharge, it was determined to be acceptable not needing any additional blood transfusions at the time. Patient did received intravenous iron. Hematology was consulted for patient's anemia and recommended repeat iron studies
with patient's primary care physician in 4 to 6 weeks, and if was determined that patient remained iron deficient or anemia persisted/worsened then in that case patient would need to see outpatient hematology. Orthopedics was also consulted again
for patient's anemia to see whether post-op bleeding could be an issue contributing to patient's anemia, and mentioned that there was some mild oozing noted from patient's ulnar incision, and it was suspected that this was likely evacuation of
hematoma, orthopedics recommended continuing with elevation and ice to the left upper extremity, and stopping Lovenox and in a couple of days starting Aspirin 81 mg BID (instead of just daily) -- the BID dosing of Aspirin 81 mg would have to
continue 30 days post-op. Patient would need to see orthopedic surgeon, as an outpatient, by 06/23/24 latest.
Patient developed urinary retention for which she needed a Campos Catheter. She also had constipation requiring enema and magnesium citrate with resulting significant bowel movements. Cardiology mentioned that since patient had a Campos catheter an
SGLT2 inhibitor medication could be considered later given SGLT2 association with possible urinary tract infection.
Discharge Plan
-
Patient Disposition: Correction/SNF
Discharge Diagnosis/Procedures: #comminuted and impacted intertrochanteric fracture of left femur status post Insertion left short cephalomedullary nail
#Left radial and ulnar fracture status post open reduction internal fixation left distal radius fracture, open reduction internal fixation left distal ulna fracture 2 or more intra-articular fragments distal radius
#Fractures due to combination of trauma and a pathological process of osteoporosis
#Acute blood loss anemia secondary to fracture and surgery
#Concern for Constipation Post-Op
#Crackles in lungs
#Acute hypoxic insufficiency suspected secondary to Acute Heart Failure with Preserved Ejection Fraction
#Acute Heart Failure with Preserved Ejection Fraction
#Pulsating Mass in Neck -- questionable left-sided neck mass
#Urinary retention
#Fall
#CAD, s/p PCI
#PreDM vs DM
#History of of Graves disease
#Hyperlipidemia
#Essential Hypertension
#Presbycusis
#Anxiety/depression disorder
#Osteoporosis
US Cerebrovascular (as per radiologist's report)
'IMPRESSION:
1. Right carotid: Calcified plaque mid to distal common carotid artery. Linear somewhat raised plaque versus intimal in the right internal carotid artery, possible chronic focal dissection versus irregular plaque. Velocity profile consistent with
50-69% stenosis of the internal carotid artery.
2. Left carotid: Calcified plaque mid to distal common carotid artery. No evidence of mass noted on ultrasound (as per indications for the study questioning a mass). Patent left carotid endarterectomy site. Velocity profile consistent with less than
50% internal carotid artery stenosis.
3. Antegrade left vertebral artery flow, retrograde right vertebral artery flow. Retrograde flow can be seen in the setting of a more proximal stenosis or occlusion in the subclavian artery.'
CT Neck Angio W/wo Iv Contrast (as per radiologist's report)
'IMPRESSION:
Stenosis of the right subclavian artery seen proximal to the origin of the right vertebral artery correlating with findings seen on recent ultrasound.
Proximal right vertebral artery not well opacified with contrast suggesting the possibility of some short segment proximal stenoses with possible reconstitution of markedly small relative small size vertebral artery mid and distally.
Markedly tortuous left internal carotid artery extending superficially anteriorly ikely accounting for 'pulsatile masslike area'.
No findings to suggest hemodynamically significant stenosis of the proximal internal carotid arteries bilaterally. Findings suspicious for ulcerated plaque in the proximal right internal carotid artery.'
CT Head (as per radiologist's report)
'IMPRESSION:
No acute intracranial abnormality.
Mild parenchymal volume loss commensurate with the patient's age.
Mild sequela of chronic small vessel disease.'
Condition: Good
Diet: As tolerated, Low Fat, Low Cholesterol, Low Sodium and Restrict fluids to 64 oz
Activity: Other activity
Additional Activity: Weightbearing to patient's tolerance left lower extremity.
Nonweightbearing left upper extremity in splint.
Okay to bear weight through forearm utilizing platform walker.
Continued elevation and ice to left upper extremity
Blood Work: Needs Phosphorus, Magnesium, CMP checked by 06/19/24. Needs CBC checked by 06/17/24. Will need recheck of Vitamin B12 level in 2 to 4 weeks.
Specialty Instructions: Weigh Daily- Call MD for wt gain/loss 3 lbs overnight/5 lbs in 1 week
Activity Restrictions/Additional Instructions:
Starting on 06/17/24, patient should take Aspirin 81 mg BID, but NOT Aspirin 81 mg daily. Patient should continue taking Aspirin 81 mg BID until around July 09, 2024 (please contact Dr. Fernando Santana's - orthopedics office - for exact end date of
the Aspirin 81 mg BID) -- after the Aspirin 81 mg BID end date, Aspirin should be continued at 81 mg daily dosing.
Repeat iron studies with primary care provider in 4-6 weeks, if patient remains iron deficient or anemia persistent/worsens then would refer to hematology outpatient.
Closely monitor patient for constipation.
Patient will need urology outpatient office follow-up in 1 week for voiding trial of Campos Catheter. Please call their office to arrange.
Continue on furosemide 20 mg po as needed for a weight gain or 3lbs in a day or 5lbs in 5 days

Activity (please contact orthopedics Dr. Santana's office for further details if needed)
Weightbearing to patient's tolerance left lower extremity.
Nonweightbearing left upper extremity in splint.
Okay to bear weight through forearm utilizing platform walker.
Continued elevation and ice to left upper extremity
Referrals:
Rony Solano DO [Non-Admitting Privileges] - in one to two weeks
Anthony Candelaria DO [Family Provider] -
Rajiv Giron MD [Active] - 07/18/24 10:00 am
Blade Stewart Jr., MD [Active] - in less than 1 week (Hospital Follow-up. Campos Catheter voiding trial.)
Fernando Santana MD [Active] - in less than 1 week (Hospital, surgery follow-up)
Additional Discharge Medication Instructions: Aspirin 81 mg BID (NOT DAILY) starting on 06/17/24 until around July 09, 2024, after which switch back to Aspirin 81 mg DAILY (please confirm with orthopedic surgeon regarding when the switch should be
made).
Tylenol, Vitamin B12, Docusate, Ferrous Sulfate, PRN Furosemide, PRN Oxycodone and HealthyLax are new medications.
Prescriptions:
New
docusate sodium 100 mg Capsule
100 mg PO BID Qty: 60 0RF
cyanocobalamin (vitamin B-12) 1,000 mcg tablet
1,000 mcg PO DAILY Qty: 30 1RF
polyethylene glycol 3350 [HealthyLax] 17 gram Powder In Packet
17 g PO DAILY Qty: 30 1RF
oxycodone 5 mg Tablet
5 mg PO Q4HPRN PRN (Reason: moderate pain) Qty: 7 0RF
acetaminophen 325 mg Tablet
650 mg PO Q4HPRN PRN (Reason: mild pain/GOLDSTEIN/temp> 100.4F) Qty: 20 0RF
furosemide 20 mg tablet
20 mg PO DAILY PRN (Reason: Weight gain) Qty: 20 0RF
Rx Instructions:
PRN weight gain of 3 lbs in a day or 5 lbs in 5 days
ferrous sulfate 325 mg (65 mg iron) tablet
325 mg PO Q OTHER DAY Qty: 14 0RF
Continued
metoprolol tartrate 50 MG tablet
50 mg PO DAILY
alendronate [Fosamax] 70 mg Tablet
70 mg PO WE
therapeutic multivitamin Tablet
1 tab PO DAILY
amlodipine [Norvasc] 5 mg Tablet
5 mg PO DAILY
calcium carbonate [Calcium 600] 600 mg calcium (1,500 mg) Tablet
600 mg PO DAILY
sertraline 50 mg Tablet
50 mg PO DAILY
vitamins A,C,P-nfcy-aghzab 4,296 mcg-226 mg-90 mg Capsule
1 cap PO BID
cholecalciferol (vitamin D3) [Vitamin D3] 50 mcg (2,000 unit) Tablet
50 mcg PO DAILY
rosuvastatin 10 MG tablet
5 mg PO QPM
Changed
aspirin 81 MG tablet,delayed release (DR/EC)
81 mg PO BID Qty: 0 0RF
Discharge Orders:
Discharge Patient (As Directed); Ordered 06/16/24
Ordered By: Sukhdev Echavarria
Discharge Date and Time
Discharge Date/Time: 06/16/24 21:10
Print Language: SPANISH
[2024-06-16 16:56] LABS: Glucose - Point of Care 111 mg/dl (70-99)
[2024-06-16] MEDS: CRESTOR 5 MG PO (17:23)
[2024-06-16] MEDS: COLACE PO (21:09)
== END 2024-06-16 21:10 | DRG 480 ==
LOC: 2 SOUTH 11:28
PROVIDERS: ADMITTING PHYSICIAN Internal Medicine; ATTENDING PHYSICIAN Hospitalist; CONSULT PHYSICIAN Internal Medicine Cardiovascular Disease; CONSULT PHYSICIAN Orthopaedic Surgery; EMERGENCY PHYSICIAN Student in an Organized Health Care Education/Training Program; FAMILY PHYSICIAN Family Medicine
PROC: 0PSJXZZ Reposition Left Radius, External Approach (ICD-10-PCS; 2024-06-09)
PROC: 0PSLXZZ Reposition Left Ulna, External Approach (ICD-10-PCS; 2024-06-09)
PROC: 0QS736Z Reposition Left Upper Femur with Intramedullary Internal Fixation Device, Percutaneous Approach (ICD-10-PCS; 2024-06-09)
PROC: 30233N1 Transfusion of Nonautologous Red Blood Cells into Peripheral Vein, Percutaneous Approach (ICD-10-PCS; 2024-06-11)
PROC: 0PSJ04Z Reposition Left Radius with Internal Fixation Device, Open Approach (ICD-10-PCS; 2024-06-11)
PROC: 0PSL04Z Reposition Left Ulna with Internal Fixation Device, Open Approach (ICD-10-PCS; 2024-06-11)
DX: M80.052A Age-related osteoporosis with current pathological fracture, left femur, initial encounter for fracture (principal); I50.31 Acute diastolic (congestive) heart failure; D62 Acute posthemorrhagic anemia; J98.11 Atelectasis; M80.032A Age-related osteoporosis with current pathological fracture, left forearm, initial encounter for fracture; E11.9 Type 2 diabetes mellitus without complications; I25.10 Atherosclerotic heart disease of native coronary artery without angina pectoris; I10 Essential (primary) hypertension; E78.00 Pure hypercholesterolemia, unspecified; E05.00 Thyrotoxicosis with diffuse goiter without thyrotoxic crisis or storm; I65.21 Occlusion and stenosis of right carotid artery; F32.A Depression, unspecified; F41.9 Anxiety disorder, unspecified; H91.10 Presbycusis, unspecified ear; R00.0 Tachycardia, unspecified; K59.09 Other constipation; R09.02 Hypoxemia; R06.89 Other abnormalities of breathing; R33.9 Retention of urine, unspecified; R22.1 Localized swelling, mass and lump, neck; W01.0XXA Fall on same level from slipping, tripping and stumbling without subsequent striking against object, initial encounter; Z95.5 Presence of coronary angioplasty implant and graft; Z87.891 Personal history of nicotine dependence; Z79.82 Long term (current) use of aspirin; Z79.899 Other long term (current) drug therapy; Z96.641 Presence of right artificial hip joint
CPT/HCPCS: 25565; 70450; 70498; 71045; 73100; 73110; 73502; 74018; 76000; 80048; 80053; 80061; 82607; 82728; 82746; 82962; 83036; 83540; 83550; 83615; 83735; 83880; 84100; 84439; 84443; 85014; 85018; 85025; 85027; 85045; 86850; 86900; 86901; 86920; 93005; 93306; 93880; 96374; 96375; 96376; 97110; 97116; 97163; 97166; 97530; 97535; 99152; 99285; C1713; J2916; P9016; Q9967

== ENCOUNTER 2024-08-30 13:46 | Emergency (ER) | payer OTHER, SELFPAY ==
[2024-08-30 13:51] VITALS: BP 114/86
[2024-08-30 14:07] LABS: % Basophils 0.5 % (0-2); % Immature Granulocytes 0.3 % (0-0.5); % Lymphocytes 25.9 % (20.5-51.1); % Monocytes 7.9 % (1.7-9.3); % Neutrophils 63.4 % (42.2-75.2); Absolute Eosinophils 0.1 10^3/uL (0-0.7); Absolute Lymphocytes 1.7 10^3/uL (1.2-3.4); Absolute Monocytes 0.5 10^3/uL (0.1-0.6); Absolute Neutrophils 4.1 10^3/uL (1.4-6.5); Hematocrit 36.2 % (37.0-47.0); Hemoglobin 12.1 g/dL (12.0-16.0); Mean Corp Hgb Conc. 33.4 g/dL (33.0-37.0); Mean Corpuscular Hgb 33.2 pg (27.0-31.0); Mean Corpuscular Volume 99.5 fL (81.0-99.0); Mean Platelet Volume 10.5 fL (7.4-10.4); Nucleated Red Blood Cells % 0 %; Platelet Count 190 10^3/uL (130-400); Red Blood Cell Count 3.64 10^6/uL (4.20-5.40); Red Cell Dist. Width 13.9 % (11.5-14.5); White Blood Cell Count 6.5 10^3/uL (4.8-10.8)
[2024-08-30 14:25] VITALS: BP 170/81
[2024-08-30 14:29] LABS: Troponin I 0.015 ng/ml
[2024-08-30 15:00] VITALS: BP 163/70
[2024-08-30 15:07] LABS: ALT (SGPT) 15 U/L (0-35); AST (SGOT) 29 U/L (14-36); Albumin 4.3 g/dl (3.5-5.0); Alkaline Phosphatase 219 U/L (38-126); Blood Urea Nitrogen 10 mg/dl (7-17); Calcium 9.2 mg/dl (8.4-10.2); Carbon Dioxide 22 mmol/L (22-30); Chloride 107 mmol/L (98-107); Glucose 98 mg/dl (70-99); Lipase 116 U/L (23-300); Potassium 2.8 mmol/L (3.5-5.1); Sodium 140 mmol/L (135-145); Total Bilirubin 0.3 mg/dl (0.2-1.3); Total Protein 6.7 g/dl (6.3-8.2); eGFR > 60.00
[2024-08-30 15:14] VITALS: BMI 25.3
--- NOTE | 2024-08-30 15:29 | ED.GENMED ---
History of Present Illness
General
Chief Complaint: Abdominal Symptoms
Time Seen by Provider: 08/30/24 14:51
History of Present Illness
History of Present Illness:
83-year-old female with history of coronary artery disease, hypertension, and hyperlipidemia presents to the emergency department for evaluation of heartburn and vomiting that began last night. She describes a burning discomfort in the chest that
is not typical for her prior angina. Denies any pleuritic chest pain or shortness of breath. Has had a hard time eating and drinking today secondary to pain and feels as though there is something stuck in her esophagus. She is able to swallow
saliva and is able to swallow small bits of liquid without vomiting.
Past History
Past History
ED Past Medical History: CAD, HTN, Hypercholesterolemia, NIDDM, [place], Hypothyroidism and Other (Graves' disease)
ED Past Surgical History: Appendectomy, Cardiac (Cardiac stenting, carotid artery angioplasty), Cholecystectomy, Orthopedic (R total hip Replacement) and Tonsilectomy
Social History
Tobacco: Former smoker
Alcohol: Occasional
Drug: None
Personal:
Living: alone
Family History
Family History: Negative Diabetes, Hypertension, Early CAD, Asthma or Cancer
Review of Systems
Review of Systems
Allergies reviewed?: Yes
All Other Systems: ROS reviewed and negative except as documented in HPI and ROS
Phy Exam
Physical Exam
Physical Exam:
GEN: Well appearing, NAD, WDWN
Eyes: PERRLA, EOMs intact, no scleral icterus
HENT: NCAT, oral mucosa moist
Lungs: CTAB, no wheezes, rales, rhonchi, normal chest wall excursion
Cardiac: RRR, no M/R/G, no peripheral edema. Radial pulses 2+ bilat
Abdomen: S, NT, ND, NABS, no masses or hepatosplenomegaly
Neuro: AO x 3
MSK: No gross deformity or ecchymosis. No edema. No digital clubbing
Skin: No rashes, petechiae. Normal color, no pallor or jaundice.
Psych: Calm, cooperative, proper hygiene
Course
Orders/Labs/Results
Orders:
Orders
08/30/24 13:46
Electrocardiogram (*1) Urgent
Reason for Study: Chest Pain
EKG- Treatment ONCE
08/30/24 13:58
CMP [Comprehensive Metabolic Panel] Urgent
Complete Blood Count/With Diff Urgent
Lipase Urgent
Troponin I Urgent
08/30/24 15:28
Famotidine [Pepcid] 20 mg IV NOW STA
Sucralfate Suspension [Carafate Suspension] 1 gm PO NOW STA
08/30/24 15:29
CR Chest - 2 Views Urgent
Comment:
Reason For Exam: chest pain
08/30/24 17:20
Troponin I Routine
Abnormal Lab Results
08/30/24
13:58
RBC 3.64 L 10^6/uL
(4.20-5.40)
Hct 36.2 L %
(37.0-47.0)
MCV 99.5 H fL
(81.0-99.0)
MCH 33.2 H pg
(27.0-31.0)
MPV 10.5 H fL
(7.4-10.4)
Potassium 2.8 L mmol/L
(3.5-5.1)
Alkaline Phosphatase 219 H U/L
(38-126)
08/30/24 13:58
08/30/24 13:58
Vital Signs
Initial and Last Documented VS:
Initial Vital Signs
Temp Pulse Resp BP Pulse Ox
97.7 F 83 18 114/86 98
08/30/24 13:51 08/30/24 13:51 08/30/24 13:51 08/30/24 13:51 08/30/24 13:51
Last Documented Vital Signs
Temp Pulse Resp BP Pulse Ox
97.7 F 79 19 178/88 93
08/30/24 13:51 08/30/24 17:45 08/30/24 17:45 08/30/24 17:44 08/30/24 17:30
MDM/Problems Addressed
MDM/Problems Addressed:
Patient's symptoms improved after H2 wilda and Carafate. Initial troponin was detectable thus repeat troponin was obtained 3 hours later and this was definitively negative. Given that her symptoms improved this is highly likely to represent
uncontrolled GERD, will start her on PPI and Carafate, recommend primary care follow-up.
Comment
Comment:
EKG independently interpreted by me shows a normal sinus rhythm at a rate of [address] changes concerning for ischemia
*Critical Care Note
Total Time (30-74mins, 75-104mins- exclusive of procedures): Not Applicable
ED Attending Note
-
Portions of this chart may have been created with voice recognition software.� Occasional wrong word or��sound alike� substitutions may have occurred due to the inherent limitations of voice recognition software.
Discharge Plan
Departure
Patient Disposition: Home (Routine Discharge)
Date of Disposition: 08/30/24
Time of Disposition: 17:58
Patient with high blood pressure during this ER visit?: No
Discharge Problem:
Gastro-esophageal reflux
Instructions: Acid Reflux, Adult and Adolescent ED
Prescriptions:
New
pantoprazole 40 mg tablet,delayed release (DR/EC)
40 mg PO DAILY Qty: 14 0RF
sucralfate [Carafate] 100 mg/mL suspension
10 ml PO AC Qty: 200 0RF
No Action
metoprolol tartrate 50 MG tablet
50 mg PO DAILY
alendronate [Fosamax] 70 mg Tablet
70 mg PO WE
therapeutic multivitamin Tablet
1 tab PO DAILY
amlodipine [Norvasc] 5 mg Tablet
5 mg PO DAILY
calcium carbonate [Calcium 600] 600 mg calcium (1,500 mg) Tablet
600 mg PO DAILY
sertraline 50 mg Tablet
50 mg PO DAILY
vitamins A,C,T-kton-bmdfyw 4,296 mcg-226 mg-90 mg Capsule
1 cap PO BID
cholecalciferol (vitamin D3) [Vitamin D3] 50 mcg (2,000 unit) Tablet
50 mcg PO DAILY
rosuvastatin 10 MG tablet
5 mg PO QPM
docusate sodium 100 mg Capsule
100 mg PO BID Qty: 60 0RF
cyanocobalamin (vitamin B-12) 1,000 mcg tablet
1,000 mcg PO DAILY Qty: 30 1RF
polyethylene glycol 3350 [HealthyLax] 17 gram Powder In Packet
17 g PO DAILY Qty: 30 1RF
oxycodone 5 mg Tablet
5 mg PO Q4HPRN PRN (Reason: moderate pain) Qty: 7 0RF
acetaminophen 325 mg Tablet
650 mg PO Q4HPRN PRN (Reason: mild pain/GOLDSTEIN/temp> 100.4F) Qty: 20 0RF
furosemide 20 mg tablet
20 mg PO DAILY PRN (Reason: Weight gain) Qty: 20 0RF
Rx Instructions:
PRN weight gain of 3 lbs in a day or 5 lbs in 5 days
ferrous sulfate 325 mg (65 mg iron) tablet
325 mg PO Q OTHER DAY Qty: 14 0RF
aspirin 81 MG tablet,delayed release (DR/EC)
81 mg PO BID Qty: 0 0RF
Referrals:
Anthony Candelaria DO [Family Provider] -
Interventions
Interventions:
*Risk Screen - Suicide Last Done: 08/30/24 13:51
*General Assessment Last Done: 08/30/24 13:51
*Neglect/Abuse Screening Last Done: 08/30/24 13:51
ED- Fall Risk Assessment Last Done: 08/30/24 15:14
*ED COVID-19 Vaccine History Last Done: 08/30/24 13:51
*Nursing Disposition Last Done: 08/30/24 18:14
QU-Nyqqcn-[id number] Assessment Last Done: 08/30/24 15:14
Discharge Date and Time
Discharge Date/Time: 08/30/24 18:15
Print Language: SLOVAK
[2024-08-30] MEDS: CARAFATE SUSPENSION 1 GM PO (15:52)
[2024-08-30] MEDS: PEPCID 20 MG IV (15:52)
[2024-08-30 17:44] VITALS: BP 178/88
[2024-08-30 17:55] LABS: Troponin I < 0.012 ng/ml
== END 2024-08-30 18:15 | disposition home or self-care (01) ==
LOC: EMR 13:46
PROVIDERS: Emergency Medicine; Physician Assistant; EMERGENCY PHYSICIAN Emergency Medicine; FAMILY PHYSICIAN Family Medicine
DX: K21.9 Gastro-esophageal reflux disease without esophagitis (principal); I25.10 Atherosclerotic heart disease of native coronary artery without angina pectoris; I10 Essential (primary) hypertension; E78.00 Pure hypercholesterolemia, unspecified; E11.9 Type 2 diabetes mellitus without complications; E03.9 Hypothyroidism, unspecified; E05.00 Thyrotoxicosis with diffuse goiter without thyrotoxic crisis or storm; I25.2 Old myocardial infarction; Z79.82 Long term (current) use of aspirin; Z95.5 Presence of coronary angioplasty implant and graft; Z90.49 Acquired absence of other specified parts of digestive tract; Z96.641 Presence of right artificial hip joint; Z87.891 Personal history of nicotine dependence
CPT/HCPCS: 99284; 96374; 71046; 80053; 83690; 84484; 85025; 93005

== ENCOUNTER → 2024-10-19 10:12 | Outpatient (REF) | payer OTHER, SELFPAY | LOC: HWRAD 10:12 | PROVIDERS: ATTENDING PHYSICIAN Orthopaedic Surgery; FAMILY PHYSICIAN Family Medicine | DX: S52.502A Unspecified fracture of the lower end of left radius, initial encounter for closed fracture (principal) | CPT/HCPCS: 73200 ==

== ENCOUNTER 2024-12-14 15:13 | Observation (INO) | payer OTHER, SELFPAY ==
[2024-12-14] VITALS (7 sets, daily range): BP systolic 146–176; BP diastolic 20–105; BMI 26.4
--- NOTE | 2024-12-14 11:59 | ED.GENMED ---
History of Present Illness
General
Chief Complaint: Chest Pain
Source: patient
Exam Limitations: none
Time Seen by Provider: 12/14/24 11:55
History of Present Illness
History of Present Illness:
84-year-old female with a history of CAD status post stents remotely, hypertension, hyperlipidemia, remote smoker
Presents for 3 or 4 days of cough that is occasionally productive with some mucus, ongoing chest discomfort that feels like a pain that is not similar to her previous GERD symptoms and is not necessarily similar to a heart attack which she has had
before, nausea and vomiting x 1 today, poor appetite since yesterday and some lightheadedness. Patient has not had a fever that she knows of. She is coughing frequently today noticed by her daughter. Patient seems short of breath when she walks
which is a baseline problem for her but it seems to be worse in the last 24 hours. Patient has not been vaccinated recently for COVID. She did receive 1 vaccine in the beginning. Patient probably did not get a flu vaccine this year. She has not
had any known exposures. She does have a nebulizer machine which she has used previously when she is gotten sick but she does not carry a diagnosis of COPD or asthma. Patient has not taken anything [id number] for her symptoms. Her chest
pain is not pleuritic but worse with coughing.
Past History
Past History
ED Past Medical History: CAD, HTN, Hypercholesterolemia, NIDDM, NV, Hypothyroidism and Other (Graves' disease)
ED Past Surgical History: Appendectomy, Cardiac (Cardiac stenting, carotid artery angioplasty), Cholecystectomy, Orthopedic (R total hip Replacement) and Tonsilectomy
Social History
Tobacco: Former smoker
Alcohol: Occasional
Drug: None
Personal:
Living: alone
Family History
Family History: Negative Diabetes, Hypertension, Early CAD, Asthma or Cancer
Review of Systems
Review of Systems
Allergies reviewed?: Yes
All Other Systems: Not applicable
Phy Exam
Physical Exam
Physical Exam:
GENERAL: Alert , in no apparent distress
EYE: pupils equal and reactive
NECK: Supple
ENT: b/l TM s clear, pharynx erythematous but no tonsillar hypertrophy or exudates
CARDIAC: Regular rate and rhythm, no edema
LUNGS: Frequent cough, crackles and end expiratory wheezing throughout, mild tachypnea, no hypoxia
ABDOMEN: Soft, without focal tenderness, no r/g, no cvat, normal bowel sounds
NEUROLOGICAL: Alert and oriented, no focal neuro deficits
SKIN: Warm and dry, skin intact.
MUSCULOSKELETAL: No edema, well perfused.
PSYCH: Normal and appropriate interaction.
Scores
Heart Score for Chest Pain Patients
STEMI patient?: No
History: Slightly or Non-Suspicious
ECG: Normal
Age: >/= 65 years
Risk Factors: >/= 3 Risk Factors or History of CAD
Troponin: </= Normal Limit
Heart Score for Chest Pain Patients: 4
Heart Score Risk: 20.3% MACE over next 6 weeks
Course
Orders/Labs/Results
Orders:
Orders
12/14/24 10:57
Electrocardiogram (*1) Urgent
Reason for Study: Chest Pain
12/14/24 10:58
EKG- Treatment ONCE
12/14/24 12:10
Albuterol Nebs [Ventolin Nebules] 2.5 mg INH R NOW STA
12/14/24 12:13
COVID-19 Antigen Urgent
Source: Nasal Swab
Complete Blood Count/With Diff Urgent
Comprehensive Metabolic Panel Urgent
NT-proBNP Urgent
Troponin I Urgent
Influenza A+B Rapid Molecular Urgent
JULITO Source: Nasal Swab
Specimen Description:
12/14/24 12:45
CR Chest - 2 Views Urgent
Comment:
Reason For Exam: cough, chest pain
12/14/24 13:34
Acetaminophen [Tylenol] 650 mg PO NOW STA
Dexamethasone Sod Phosphate [Decadron] 10 mg IV NOW STA
12/14/24 14:58
Admit/Transfer Patient As Directed
Co-Sign Provider:
Level of Care: Observation services
Assign to:: Medical/Surgical
Physician / Group: Samira Thurston
Diagnosis: bronchitis
PRN Pain Medication Management As Directed
May give lesser potent ordered pain med per pt: Yes
preference::
Protocol:: Medication orders for pain may be administered in a
manner that supports deferring to patient preference
when the pt is:
- Requesting an ordered lesser potent pain medication.
Least to most potent pain medications are defined
as: acetaminophen < NSAID < tramadol < opioids
(morphine, oxycodone, hydromorphone).
- Requesting a lesser dose of the same medication IF
ORDERED.
- Requesting a less intrusive route of administration
if both routes are prescribed by the provider (PO <
IV).
12/14/24 15:00
Code Status As Directed
Resuscitation Status: Do not resuscitate
Reached after discussion with pt or family/Healthcare POA: Yes
Decision communicated with: patient and daughter
2200 calorie (18 carb) Diabetic
At Your Request: Full Participation
12/14/24 15:01
DNR Bracelet Application ONCE
12/14/24 17:02
Acetaminophen [Tylenol] 650 mg PO Q4HPRN PRN
Albuterol Nebs [Ventolin Nebules] 2.5 mg INH R Q4HPRN PRN
Albuterol Nebs [Ventolin Nebules] 2.5 mg INH R QID
Dexamethasone Sod Phosphate [Decadron] 4 mg IV Q8H
Ferrous Sulfate [Feosol] 325 mg PO Q48H
12/14/24 17:02
Respiratory Culture/Gram Stain Routine
JULITO Source: Sputum
Specimen Description:
Activity As Directed
Activity Level: Out of Bed-Early Mobility
Intake/ Output As Directed
Frequency: Per unit guidelines
Vital Signs As Directed
Frequency: Per unit guidelines
Weight As Directed
Frequency: Once
Rx Pep / Acapela [RESP] Routine
DX Deep Vein Thrombosis Video Routine
12/14/24 18:00
Enoxaparin Sodium [Lovenox] 40 mg SC QPM
12/14/24 20:00
Docusate Sodium [Colace] 100 mg PO BID
Guaifenesin [Mucinex] 600 mg PO Q12
vitamins A,C,U-bhup-prmiln 1 cap PO BID
12/14/24 22:00
Atorvastatin [Lipitor] 10 mg PO HS
Levothyroxine [Synthroid] 125 mcg PO HS
12/15/24 08:00
Aspirin Low Dose EC [Aspir Low (Enteric Coated)] 81 mg PO DAILY
Cholecalciferol (Vitamin D3) [VITAMIN D3 (cholecalciferol)] 50 mcg PO DAILY
Cyanocobalamin [Vitamin B-12] 1,000 mcg PO DAILY
Metoprolol [Lopressor] 50 mg PO DAILY
Multivitamin [Theragran] 1 tablet PO DAILY
Prednisone [Deltasone] 40 mg PO DAILY
Sertraline HCl [Zoloft] 50 mg PO DAILY
calcium carbonate [Calcium 600] 600 mg PO DAILY
Abnormal Lab Results
12/14/24
12:13
RBC 3.54 L 10^6/uL
(4.20-5.40)
Hgb 11.8 L g/dL
(12.0-16.0)
Hct 35.5 L %
(37.0-47.0)
MCV 100.3 H fL
(81.0-99.0)
MCH 33.3 H pg
(27.0-31.0)
MPV 11.1 H fL
(7.4-10.4)
Abs Immat Gran (auto) 0.1 H 10^3/uL
(0-0.05)
Absolute Neuts (auto) 8.5 H 10^3/uL
(1.4-6.5)
Absolute Lymphs (auto) 1.1 L 10^3/uL
(1.2-3.4)
Absolute Monos (auto) 0.8 H 10^3/uL
(0.1-0.6)
Immature Gran % 0.6 H %
(0-0.5)
Neutrophils % 80.5 H %
(42.2-75.2)
Lymphocytes % 10.3 L %
(20.5-51.1)
Glucose 118 H mg/dl
(70-99)
12/14/24 12:13
12/14/24 12:13
Vital Signs
Initial and Last Documented VS:
Initial Vital Signs
Temp Pulse Resp BP Pulse Ox
37.0 C 95 18 146/105 96
12/14/24 10:59 12/14/24 10:59 12/14/24 10:59 12/14/24 10:59 12/14/24 10:59
Last Documented Vital Signs
Temp Pulse Resp BP Pulse Ox
37.0 C 95 18 146/105 96
12/14/24 10:59 12/14/24 10:59 12/14/24 10:59 12/14/24 10:59 12/14/24 10:59
MDM/Problems Addressed
Differential Diagnosis Includes:
chf, pnejmonia, copd, flu, covid
MDM/Problems Addressed:
84 y/o F
former smoker, htn, hld, cad stents
here with 3-4 days cough, and dyspnea worse than usual, at rest and significant with exertion, some constant cp worse with cough; wheezing
looks like probably asthmatic bronchitis vs. copd exacerbation; no focal pna; no chf; trop neg; tachypneic mildly but not requiring o2 at rest;
neb, steroids given, still wheezing, tachypneic at rest
pt does not seem well enough to go home, tachypneic, coughing, wheezing
will repeat neb
ches tpain seems to be less likely ACS; also unlikely PE, pt is not hypoxic; and with URI sxs most likely bronchtiis and related to coughing
isigned out to hospitalist
d/w ed attending
*Critical Care Note
Total Time (30-74mins, 75-104mins- exclusive of procedures): Not Applicable
ED Attending Note
-
Portions of this chart may have been created with voice recognition software.� Occasional wrong word or��sound alike� substitutions may have occurred due to the inherent limitations of voice recognition software.
Discharge Plan
Departure
Patient Disposition: Admit
Date of Disposition: 12/14/24
Time of Disposition: 13:39
Admit to: Telemetry
Presentation/result/management discussed w/ accepting MD/DO: Hospitalist
Patient with high blood pressure during this ER visit?: No
Condition: Fair
Covid-19: Negative COVID-19
Discharge Problem:
Bronchitis
Interventions
Interventions:
*Risk Screen - Suicide Last Done: 12/14/24 10:59
*General Assessment Last Done: 12/14/24 10:59
*Neglect/Abuse Screening Last Done: 12/14/24 10:59
*ED COVID-19 Vaccine History Last Done: 12/14/24 10:59
[2024-12-14] MEDS: VENTOLIN NEBULES 2.5 MG INH (12:17)
[2024-12-14 12:34] LABS: % Basophils 0.3 % (0-2); % Eosinophils 0.8 % (0-6); % Immature Granulocytes 0.6 % (0-0.5); % Lymphocytes 10.3 % (20.5-51.1); % Monocytes 7.5 % (1.7-9.3); % Neutrophils 80.5 % (42.2-75.2); Absolute Eosinophils 0.1 10^3/uL (0-0.7); Absolute Immature Granulocytes 0.1 10^3/uL (0-0.05); Absolute Lymphocytes 1.1 10^3/uL (1.2-3.4); Absolute Monocytes 0.8 10^3/uL (0.1-0.6); Absolute Neutrophils 8.5 10^3/uL (1.4-6.5); Hematocrit 35.5 % (37.0-47.0); Hemoglobin 11.8 g/dL (12.0-16.0); Mean Corp Hgb Conc. 33.2 g/dL (33.0-37.0); Mean Corpuscular Hgb 33.3 pg (27.0-31.0); Mean Corpuscular Volume 100.3 fL (81.0-99.0); Mean Platelet Volume 11.1 fL (7.4-10.4); Nucleated Red Blood Cells % 0 %; Platelet Count 166 10^3/uL (130-400); Red Blood Cell Count 3.54 10^6/uL (4.20-5.40); White Blood Cell Count 10.6 10^3/uL (4.8-10.8)
[2024-12-14 12:42] LABS: ALT (SGPT) 13 U/L (0-35); AST (SGOT) 24 U/L (14-36); Albumin 4.3 g/dl (3.5-5.0); Alkaline Phosphatase 114 U/L (38-126); Blood Urea Nitrogen 17 mg/dl (7-17); Carbon Dioxide 23 mmol/L (22-30); Chloride 103 mmol/L (98-107); Glucose 118 mg/dl (70-99); Potassium 4.2 mmol/L (3.5-5.1); Sodium 135 mmol/L (135-145); Total Bilirubin 0.7 mg/dl (0.2-1.3); Total Protein 6.7 g/dl (6.3-8.2); eGFR > 60.00
[2024-12-14 12:44] LABS: COVID-19 Antigen Negative (Negative)
[2024-12-14 12:50] LABS: NT-proBNP 327 pg/ml; Troponin I < 0.012 ng/ml
[2024-12-14] MEDS: DECADRON 10 MG IV (13:47)
[2024-12-14] MEDS: TYLENOL 650 MG PO (13:47)
--- NOTE | 2024-12-14 14:12 | W.PN.UPDATE ---
Update Note
Progress Note Update
This is an addendum to H&P written by NURSE INFORMATICIST Bridgette Mejia
I saw and examined the patient.
The NURSE INFORMATICIST's note was reviewed and I agree with the note.
Comment:
Ms. Faith Martinez is a 84 yo woman with hx CAD s/p PCI, essential HTN, HLD, NIDDM, Hypothyroidism presents to the ER with cough and shortness of breath.
Triage VS: T 37 C, P 95, RR 18, BP , SpO2 96%
On exam patient appears mildly tachypneic, CV: S1, S2, RRR; mild end expiratory wheezing
LABS: WBC 10.6, Hg 11.8, PLT 166, Na 135, K+ 4.2, Cl 103, CO2 23, Cr 0.8, Glucose 118, liver enzymes WNL, Troponin negative
Covid and Flu Negative
CXR
IMPRESSION: Hypoaerated lungs without consolidation.
MAR: Decadron, Nebs
Acute COPD Exacerbation
-flu, covid negative; not requiring oxygen
-admit to med/surg
-continue Decadron, Duonebs
-Mucinex, Acapella
-will need Pulm referral on DC
--- NOTE | 2024-12-14 14:18 | HPS.HSE ---
Family Physician
-
Family Physician: Anthony Candelaria
Chief Complaint
-
Chest pain
History of Present Illness
Patient is a 84-year-old female with past medical history significant for essential hypertension, hyperlipidemia, Grave's Disease, CAD, DM and anxiety/depression who presented to [facility] ED for evaluation of chest pain. Patient reports
that Wednesday night she began having discomfort in the epigastric area and described as sore. She took Tylenol, as she has in the past and was not effective in relieving the pain. She reports coming today as she felt the pain had gotten worse and was
more similar to what she experienced with her heart attack 15+ years ago. Daughter at bedside states patient was also complaining of feeling dizzy, some shortness of breath, had one episode of emesis and near syncopal episode when in waiting room
this morning. She continues with a dry cough, can be productive in mornings with a thick linder like mucus. She denies any fever, chills, constipation, diarrhea or urinary symptoms.
Medical History
Past Medical History
Past Medical History: Reports Other
Additional Past Medical History:
essential hypertension
hyperlipidemia
Grave's Disease
CAD
DM
anxiety/depression
Past Surgical History: Reports Other
Additional Past Surgical History:
hip replacement
cholecystectomy
Appendectomy
cardiac cath with PCI
Colonoscopy 03/2016
Left shoulder Steroid injection 12/31/2021
Left eye surgery 07/2022
L1 and L4 kyphoplasty 12/24/2022
Left Cephalomedullary Nail Fixation Intertrochanteric Femur Fx- Dr Fernando Santana/ 06/09/2024
ORIF Left distal radius/ ulna fracture- Dr Fernando Santana/ 06/11/2024
Social History
Tobacco: Former Smoker (quit 20 years ago)
Alcohol: None
Drug: None
Living: Alone
Employment: Retired
Family History
Family History: Other (Mother: CAD, [place], CVA; Father: GI cancer; Brother: Colon cancer, kidney cancer and lung cancer )
Allergies / Home Medications
Allergies reflects when Allergies were last updated in [employer].
Home Medications with original date entered in [employer]
Allergy/Medication List:
Allergies
Allergy/AdvReac Type Severity Reaction Status Date / Time
No Known Allergies Allergy Verified 12/14/24 11:02
Home Medications
metoprolol tartrate 50 mg tablet 50 mg PO DAILY Blood pressure 06/17/21
alendronate 70 mg tablet (Fosamax) 70 mg PO WE osteoporosis 06/09/24
calcium carbonate (Calcium 600) 600 mg PO DAILY supplement 06/09/24
cholecalciferol (vitamin D3) 50 mcg (2,000 unit) tablet (Vitamin D3) 50 mcg PO DAILY supplement 06/09/24
sertraline 50 mg tablet 50 mg PO DAILY depression/anxiety 06/09/24
therapeutic multivitamin 1 tab PO DAILY supplement 06/09/24
vitamins A,C,Q-dsus-wcfrwq 4,296 mcg-226 mg-90 mg capsule 1 cap PO BID supplement 06/09/24
cyanocobalamin (vitamin B-12) 1,000 mcg tablet 1,000 mcg PO DAILY #30 tabs 06/16/24
docusate sodium 100 mg capsule 100 mg PO BID #60 caps 06/16/24
acetaminophen 500 mg tablet (Tylenol Extra Strength) 1,000 mg PO BID 12/14/24
aspirin 81 mg tablet,delayed release 81 mg PO DAILY Blood clot prevention/tx 12/14/24
atorvastatin 10 mg tablet (Lipitor) 10 mg PO HS 12/14/24
ferrous sulfate 325 mg (65 mg iron) tablet 325 mg PO Q48H 12/14/24
furosemide 20 mg tablet 20 mg PO DAILYPRN PRN Weight gain 12/14/24
levothyroxine 125 mcg tablet (Synthroid) 125 mcg PO HS 12/14/24
Review of Systems
-
History Source: Patient
Constitutional: Reports No Symptoms
EENT: Reports No Symptoms
Respiratory: Reports Cough and Trouble Breathing (mild shortness of breath )
Cardiac: Reports Chest Pain
Abdomen/GI: Reports No Symptoms
: Reports No Symptoms
Musculoskeletal: Reports No Symptoms
Skin: Reports No Symptoms
Neurological: Reports No Symptoms
Endocrine: Reports No Symptoms
Hematologic/Lymphatic: Reports No Symptoms
Psych: Reports No Symptoms
Physical Exam
Vital Signs
Vital Signs
Temp Pulse Resp BP Pulse Ox
98.6 F 95 18 146/105 96
12/14/24 10:59 12/14/24 10:59 12/14/24 10:59 12/14/24 10:59 12/14/24 10:59
Physical Exam
General: Well Developed, Well Nourished, No Apparent Distress and Conversant
HEENT: NormoCephalic, Moist mucous membranes, Atraumatic, Kidron Conjunctivae, Nose Appears Normal, Ears Appear Normal and Hearing Impaired
Respiratory: Clear, Wheezes and Non Labored Respirations
Cardiac: S1/S2 and Regular Rhythm; No Murmur, Rub or Gallop
Breast: Deferred by me
GI: Soft, Non Tender, Non Distended and Normal Bowel Sounds; No Organomegaly
Rectal: Deferred by Provider
Genito-urinary: Deferred by me
Musculoskeletal: No Clubbing, No Cyanosis and No Edema
Skin: IV/Catheter Site
Neuro: Awake, Alert, AO x 3 and Nonfocal/grossly intact
Psych: Calm
Laboratory Results
-
12/14/24 12:13
12/14/24 12:13
Laboratory Results
Total Bilirubin 0.7 mg/dl (0.2-1.3) 12/14/24 12:13
AST 24 U/L (14-36) 12/14/24 12:13
ALT 13 U/L (0-35) 12/14/24 12:13
Alkaline Phosphatase 114 U/L (38-126) 12/14/24 12:13
Troponin I < 0.012 ng/ml 12/14/24 12:13
Data Reviewed
-
Diagnostic Radiology: Report Reviewed by me (CXR: Hypoaerated lungs without consolidation.)
Medical Tests (Nuc Med, Echo, EKG etc): Report Reviewed by me (EKG: SINUS RHYTHM WITH SHORT IL MINIMAL VOLTAGE CRITERIA FOR LVH, MAY BE NORMAL VARIANT ( R in aVL ))
Lab Data: Labs Reviewed by me
Impression/Plan
-
IMPRESSION/PLAN:
#bronchitis vs. COPD exacerbation
no previous asthma or COPD diagnosis
Influenza: negative
Covid: negative
EKG: SINUS RHYTHM WITH SHORT [place]
MINIMAL VOLTAGE CRITERIA FOR LVH, MAY BE NORMAL VARIANT ( R in aVL )
CXR: Hypoaerated lungs without consolidation.
- Admit to med/surg
- Albuterol Nebs
- Decadron
- Mucinex
- Acapella
- outpatient follow up with Pulmonary
#essential hypertension
- continue metoprolol
#hyperlipidemia
- continue atorvastatin
#Grave's Disease
- continue levothyroxine
#CAD
- continue aspirin
#DM
A1c 5.7 (06/09/2024)
- controlled with diet
#anxiety/depression
- continue sertraline
#osteoporosis
- continue alendronate
Code status: full code
DVT Prophylaxis: Lovenox sq
--- NOTE | 2024-12-14 18:00 | PTCARENOTE ---
Received patient from ED via stretcher. AAOx3, [place]. Ambulated to bed with assistance and single point cane. Assessed and oriented to room. Call san in close reach. Will continue to monitor.
[2024-12-14] MEDS: LOVENOX 40 MG SC (18:26)
[2024-12-14] MEDS: DUONEB 3 ML INH (19:49)
[2024-12-14] MEDS: MUCINEX 600 MG PO (22:23)
[2024-12-14] MEDS: COLACE 100 MG PO (22:24)
[2024-12-14] MEDS: LIPITOR 10 MG PO (22:24)
[2024-12-14] MEDS: SYNTHROID 125 MCG PO (22:24)
[2024-12-15 07:05] VITALS: BP 187/88
[2024-12-15 07:08] LABS: Hematocrit 35.7 % (37.0-47.0); Hemoglobin 12.2 g/dL (12.0-16.0); Mean Corp Hgb Conc. 34.2 g/dL (33.0-37.0); Mean Corpuscular Hgb 33.4 pg (27.0-31.0); Mean Corpuscular Volume 97.8 fL (81.0-99.0); Mean Platelet Volume 10.9 fL (7.4-10.4); Platelet Count 174 10^3/uL (130-400); Red Blood Cell Count 3.65 10^6/uL (4.20-5.40); Red Cell Dist. Width 12.7 % (11.5-14.5); White Blood Cell Count 9.6 10^3/uL (4.8-10.8)
[2024-12-15] MEDS: DUONEB 3 ML INH ×4 (07:09→19:44)
[2024-12-15 07:17] LABS: Blood Urea Nitrogen 17 mg/dl (7-17); Calcium 9.9 mg/dl (8.4-10.2); Carbon Dioxide 22 mmol/L (22-30); Chloride 105 mmol/L (98-107); Estimated Creatinine Clearance 49 ml/min; Glucose 138 mg/dl (70-99); Potassium 3.9 mmol/L (3.5-5.1); Sodium 137 mmol/L (135-145); eGFR > 60.00
[2024-12-15 08:07] LABS: Vitamin B12 816 pg/ml (239-931)
[2024-12-15] MEDS: THERAGRAN 1 TABLET PO (08:40)
[2024-12-15] MEDS: VITAMIN B-12 1000 MCG PO (08:40)
[2024-12-15] MEDS: MUCINEX 600 MG PO (08:40)
[2024-12-15] MEDS: LOPRESSOR 50 MG PO (08:40)
[2024-12-15] MEDS: COLACE 100 MG PO ×2 (08:40→20:34)
[2024-12-15] MEDS: ASPIR LOW (ENTERIC COATED) 81 MG PO (08:40)
[2024-12-15] MEDS: ZOLOFT 50 MG PO (08:40)
[2024-12-15] MEDS: OSCAL CAL 500 500 MG PO (08:40)
[2024-12-15] MEDS: VITAMIN D3 (cholecalciferol) 50 MCG PO (08:40)
[2024-12-15] MEDS: DECADRON 4 MG IV (08:40)
[2024-12-15] MEDS: FEOSOL 325 MG PO (08:40)
--- NOTE | 2024-12-15 09:31 | W.PN.HOSP.TC ---
Addendum entered and electronically signed by Yulia Cummings MD 12/15/24 16:44:
Seen earlier. Late documentation
I saw and evaluated the patient. I reviewed the resident�s note and agree with findings and plan as documented in the resident�s noteExcept for changes in my documentation
84-year-old female with chest pain had nausea , poor appetite also has a cough.
Chest x-ray reviewed by me-no infiltrates
EKG reviewed by me-sinus rhythm LVH
Awake alert oriented
Cardiovascular system S1-S2 appreciated
Chest clear to auscultation
Abdomen soft and nontender
# Chest pain
No evidence of COPD exacerbation-stop steroids
Troponin negative
Echo pending
Cardiology evaluation noted and appreciated
PPI added as she has a history of GERD
# Hypertension-continue metoprolol. Patient was supposed not sure if she was taking it or not. Amlodipine added back
# Hyperlipidemia-continue atorvastatin
# Graves' disease-with resulting hypothyroidism-continue levothyroxine
# Coronary artery disease-with cardiac stents -RCA/proximal diagonal- ( s/p cardiac cath in 2020 without culprit lesion)continue aspirin, statin, metoprolol
# Chronic HFpEF-on Lasix. Not on SGLT2 inhibitors as outpatient
# Diabetes-diet controlled. Hemoglobin A1c was 5.7 on .
# History of bilateral carotid endarterectomies
# Anxiety and depression-continue sertraline
# Osteoporosis-continue alendronate as outpatient
# History of arthritis-type unknown
# History of anemia on p.o. iron supplements
# History of GERD-does not seem to be on medicines at present-add PPI
# [id number] in 2019
# DVT prophylaxis-Lovenox
# CODE STATUS- Full CODE-patient prefers full code
Discussed with cardiology
Discussed with daughter. She is not sure if the patient was on amlodipine or not
If BP better, will discharge tomorrow
Original Note:
Today's Communication/Plan
-
Continue monitoring patient's breathing and oxygen levels with treatment
Assessment / Plan
Assessment / Plan
Assessment:
84-year-old female with past medical history significant for essential hypertension, hyperlipidemia, Graves' disease, CAD, DM, anxiety depression, recent fall presented to [facility] ED due to evaluation of chest pain. She had been having
discomfort in the epigastric area and described it as sore. Tylenol was not effective in relieving the pain and it continued to get worse. She thought it might be related to her heart because she had similar pain when she had her heart attack 15
years ago. Patient also had episode of emesis and near syncopal episode while in the waiting room. EKG and chest x-ray both did not show any acute findings. She was found to have probable COPD exacerbation but has no previous diagnosis of asthma
or COPD. Patient is a former smoker however. Was started on supportive breathing therapy and steroids.
EKG:
SINUS RHYTHM WITH SHORT [place]
MINIMAL VOLTAGE CRITERIA FOR LVH, MAY BE NORMAL VARIANT ( R in aVL )
BORDERLINE ECG
WHEN COMPARED WITH ECG OF 30-AUG-2024 13:49,
NO SIGNIFICANT CHANGE WAS FOUND
CXR:
Hypoaerated lungs without consolidation
Plan:
# Probable acute COPD exacerbation with no previous history of COPD or asthma
-Patient was negative for flu and COVID. Does not require supplemental oxygen
-Continue therapy with steroids (Decadron, DuoNebs)
-Will continue with Mucinex and Acapella
-Probably will have to follow-up with pulmonology in the outpatient setting
# Essential hypertension
-Continue metoprolol
# Hyperlipidemia
-Continue atorvastatin
# Graves' disease
-Continue levothyroxine
# CAD
-Continue aspirin
# Type 2 diabetes
-Controlled with diet
-Monitor sugar levels as patient is on steroid therapy now
-Sugars increased to 138 today
# Anxiety/depression
-Continue sertraline
# Osteoporosis
-Continue alendronate
Full Code (spoke with patient and confirmed this morning)
DVT Prophylaxis- Lovenox
Anticipated Discharge: Within 24 hours
Subjective/Interval History
-
Date of Service: December 15, 2024
Patient continues to have trouble breathing. She says that her shortness of breath has not gotten much better and she is also complaining of her left hand hurting more now as well. Went over CODE STATUS with patient and she went to change back to
full code
Objective Data
-
Labs:
Laboratory Results
12/15/24
06:31
WBC 9.6
Hgb 12.2
Hct 35.7 L
Plt Count 174
Sodium 137
Potassium 3.9
Chloride 105
Carbon Dioxide 22
BUN 17
Creatinine 0.7
Glucose 138 H
Calcium 9.9
Vital Signs:
Vital Signs
Temp Pulse Resp BP Pulse Ox
97.7 F 90 16 187/88 95
12/15/24 07:05 12/15/24 07:10 12/15/24 07:10 12/15/24 07:05 12/15/24 07:10
I&O
12/14/24 12/15/24 12/16/24
06:59 06:59 06:59
Intake Total 240 / 240
Balance 240 / 240
Review of Systems
-
History Source: Patient
Constitutional: Reports Fatigue; Denies Fever or Chills
EENT: Reports No Symptoms Reported
Respiratory: Reports Cough and Trouble Breathing
Cardiac: Denies Chest Pain or Palpitations
Abdomen/GI: Denies Abdominal Pain, Nausea or Vomiting
Genitourinary: Reports No Symptoms
Musculoskeletal: Reports Joint Pain and Arthralgias; Denies Joint Swelling
Neuro: Denies Headache, Numbness or Lightheadedness
Physical Exam
-
General: Comfortable, Respiratory Distress and Conversant
HEENT: Hearing Impaired
Respiratory: Wheezes and Non Labored Respirations
Cardiac: Regular Rhythm and S1/S2
GI: Soft, Nontender and Nondistended
Musculoskeletal: No Clubbing, No Cyanosis and No Edema
Skin: Warm
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
Psych: Calm
Data Reviewed
-
Diagnostic Radiology: Report Reviewed by me, Discussed with Physician, Discussed with Nurse and Discussed with Patient
Labs: Labs Reviewed by me, Discussed with Physician, Discussed with Nurse and Discussed with Patient
--- NOTE | 2024-12-15 11:39 | CM ---
Patient seen bedside with daughter Emi
IA completed.
Patient lives alone in a 1 story home with ramp 1 step to enter.
Patient independent prior to admission, ambulates with a cane.
patient has WC and walker.
No hx VN and denies home care needs.
Daughter will transport home.
DOOLEY completed.
PCP: Dr Carter
Pharmacy: [facility]
Plan: home no needs anticipated.
[2024-12-15 13:07] LABS: Troponin I < 0.012 ng/ml
[2024-12-15] MEDS: PROTONIX 40 MG PO (13:16)
[2024-12-15] MEDS: TYLENOL 650 MG PO (13:16)
--- NOTE | 2024-12-15 13:29 | CON.CAR ---
Addendum entered and electronically signed by Anthony Alvarez MD 12/15/24 14:53:
I saw and examined the patient.
The JOURNAL ENTRY AUDIT CLERK's note was reviewed and I agree with the note.
84-year-old woman with history of coronary artery disease, previous RCA stenting hypertension diabetes heart failure with preserved ejection fraction who presented with chest discomfort. Patient is a bit vague in her description difficult to tell
exact onset and duration but it sounds as if she had symptoms lasting most of the day. It also sounds as if she has had intermittent chest symptoms over the course of years.. It was difficult to get an exact timeline of more recent symptoms
sometimes she will have symptoms that are related to lifting something but other times she will have random episodes. Despite reported prolonged symptoms her troponins were negative currently chest pain-free and ECG without ischemic changes.
Patient appears comfortable. No clear reproducible discomfort on exam. His exam is notable for significant hypertension which has been notable since she has been at the hospital. In review of outpatient records it appears that her previous PCP
visits had amlodipine listed which she is not currently on. Unclear if this was just a change since her admission to the hospital or if she had not been taking it at home. Unclear if uncontrolled hypertension is contributing at all to her
symptoms. Would suggest the following
-Additional treatment of hypertension
-Resume amlodipine
-Additional review with patient's daughter regarding her medications at home to see if she had actually been taking amlodipine at home
-PPI
Original Note:
Consultation
Consultation Request
Date/Time Consultation Requested: 12/15/24 1305
Date/Time Consultation Performed: 12/15/24 1320
Requesting Provider: Dr. Pemberton
Performing Provider: Sophy LÓPEZ for Dr. Alvarez
Reason for Consultation: chest pain
Medical History
-
Chief Complaint: chest pain
History of Present Illness:
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
here for evaluation. She tells me that she woke up Wednesday with midsternal chest tightness and had it throughout the day. She tells me she sometimes gets that when she pushes something heavy, but also notes it with coughing and with taking big
pills. She does seem to be somewhat forgetful. She has had a cough. She has no chest discomfort at present. Originally, she was treated for bronchitis/COPD exacerbation, but we are consulted for the chest discomfort in this patient with known CAD.
She denies SOB. I attempted to call daughter to get further information about meds (amlodipine not noted on current list, but is noted on OP PCP note) and presentation, but went to .
Past Medical History
Past Medical History: CAD, CHF, HTN, Hypercholesterolemia and NIDDM
Social History
Tobacco: Former Smoker
Living: Alone
Family History
Family History: Reviewed & Not Pertinent
Allergies / Home Medications
Allergy/AdvReac Type Severity Reaction Status Date / Time
No Known Allergies Allergy Verified 12/14/24 11:02
�Medication �Instructions �Recorded �Confirmed �Type
metoprolol tartrate 50 mg tablet 50 mg PO DAILY Blood pressure 06/17/21 12/14/24 History
alendronate 70 mg tablet (Fosamax) 70 mg PO WE osteoporosis 06/09/24 12/14/24 History
calcium carbonate (Calcium 600) 600 mg PO DAILY supplement 06/09/24 12/14/24 History
cholecalciferol (vitamin D3) 50 50 mcg PO DAILY supplement 06/09/24 12/14/24 History
mcg (2,000 unit) tablet (Vitamin
D3)
sertraline 50 mg tablet 50 mg PO DAILY depression/anxiety 06/09/24 12/14/24 History
therapeutic multivitamin 1 tab PO DAILY supplement 06/09/24 12/14/24 History
vitamins A,C,L-bjet-jluhlx 4,296 1 cap PO BID supplement 06/09/24 12/14/24 History
mcg-226 mg-90 mg capsule
cyanocobalamin (vitamin B-12) 1,000 mcg PO DAILY #30 tabs 06/16/24 12/14/24 Rx
1,000 mcg tablet
docusate sodium 100 mg capsule 100 mg PO BID #60 caps 06/16/24 12/14/24 Rx
acetaminophen 500 mg tablet 1,000 mg PO BID Pain 12/14/24 12/14/24 History
(Tylenol Extra Strength)
aspirin 81 mg tablet,delayed 81 mg PO DAILY Blood clot 12/14/24 12/14/24 History
release prevention/tx
atorvastatin 10 mg tablet (Lipitor) 10 mg PO HS High Cholesterol 12/14/24 12/14/24 History
ferrous sulfate 325 mg (65 mg 325 mg PO Q48H Supplement 12/14/24 12/14/24 History
iron) tablet
furosemide 20 mg tablet 20 mg PO DAILYPRN PRN Weight gain 12/14/24 12/14/24 History
levothyroxine 125 mcg tablet 125 mcg PO HS Thyroid 12/14/24 12/14/24 History
(Synthroid)
Review of Systems
-
History Source: Patient
All other systems: Negative unless noted
Respiratory: Cough
Cardiac: Chest Pain
Physical Exam
Vital Signs
Temp Pulse Resp BP Pulse Ox
97.7 F 92 16 187/88 95
12/15/24 07:05 12/15/24 11:02 12/15/24 11:02 12/15/24 07:05 12/15/24 08:20
Lab Results
12/15/24 06:31
12/15/24 06:31
Troponin I < 0.012 ng/ml 12/15/24 12:37
Cda-P-Bvoqzrprhrv Pept 327 pg/ml 12/14/24 12:13
Physical Exam
General: Well Developed, Well Nourished and No Apparent Distress
HEENT: Normocephalic and Anicteric
Respiratory: Clear and Non Labored Respirations
Cardiac: Regular Rhythm
Musculoskeletal: No Edema
Skin: Warm and Dry
Neuro: AO x 3
Psych: Calm
Impression / Plan
-
Chest discomfort:
-some typical and atypical features
-trop normal, EKG stable
-PPI added. Of note, as OP she was on amlodipine per chart, but not on her list here- she's not sure if she has been taking, BP up will add back. As noted, I called daughter to confirm, but no answer.
-follow tele- SR
-echo is ordered by primary team
CAD with stenting:
-continue ASA, statin, BB
-cath 06/18/2021: Patent stents in the proximal right coronary artery and the proximal diagonal artery. Moderate disease including a 40-50% ostial circumflex lesion which is functionally a trifurcation lesion in combination with the first obtuse
marginal and a 40% lesion in the mid circumflex.
HTN:
-elevated
-continue BB, but adjust to long acting (she looks to be on tartrate once daily, so will change to succinate). Add back amlodipine and monitor.
Data Reviewed
-
EKG: Tracing Personally Visualized and interpreted (SR, stable from previous)
Radiology: Report Reviewed by me (CXR: hypoaerated lungs without consolidation.)
Medical Tests (Nuc Med, Echo etc): Report Reviewed by me (Echo 06/13/24: Normal biventricular size and systolic function without regional wall motion abnormality. Stage I diastolic dysfunction suggestive of abnormal relaxation. Aortic sclerosis
without stenosis. Moderate pulmonary hypertension.)
Labs: Labs Reviewed by me
--- NOTE | 2024-12-15 15:05 | W.PN.UPDATE ---
Update Note
Progress Note Update
I spoke with daughter Emi. Patient has not been taking amlodipine. It is not clear why. She is not aware of it being stopped for any particular reason.
[2024-12-15 15:09] VITALS: BP 177/86
[2024-12-15] MEDS: NORVASC 2.5 MG PO ×2 (15:22→20:34)
[2024-12-15] MEDS: LOVENOX 40 MG SC (17:18)
[2024-12-15 18:31] VITALS: BP 142/79
[2024-12-15 19:50] VITALS: BP 138/72
[2024-12-15] MEDS: SYNTHROID 125 MCG PO (20:34)
[2024-12-15] MEDS: LIPITOR 10 MG PO (20:34)
[2024-12-15] MEDS: ROBITUSSIN 100 MG PO (21:18)
[2024-12-15 23:58] VITALS: BP 134/63
[2024-12-16 03:46] VITALS: BP 142/82
[2024-12-16] MEDS: DUONEB 3 ML INH ×2 (07:51→11:44)
[2024-12-16 07:57] VITALS: BP 151/86
[2024-12-16] MEDS: TOPROL XL 50 MG PO (08:12)
[2024-12-16] MEDS: VITAMIN B-12 1000 MCG PO (08:12)
[2024-12-16] MEDS: VITAMIN D3 (cholecalciferol) 50 MCG PO (08:12)
[2024-12-16] MEDS: THERAGRAN 1 TABLET PO (08:12)
[2024-12-16] MEDS: ASPIR LOW (ENTERIC COATED) 81 MG PO (08:12)
[2024-12-16] MEDS: PROTONIX 40 MG PO (08:12)
[2024-12-16] MEDS: ZOLOFT 50 MG PO (08:12)
[2024-12-16] MEDS: COLACE 100 MG PO (08:12)
[2024-12-16] MEDS: TYLENOL 650 MG PO (08:13)
[2024-12-16] MEDS: NORVASC 2.5 MG PO (08:13)
[2024-12-16] MEDS: OSCAL CAL 500 PO (08:17)
--- NOTE | 2024-12-16 08:21 | PTCARENOTE ---
Pt. with c/o /10 right ear pain. Tylenol given as requested by pt. Dr. Cummings made aware and will assess on rounds today.
[2024-12-16] MEDS: DEBROX EAR DROPS 5 DROP OTIC (11:12)
[2024-12-16 11:34] VITALS: BP 120/61
--- NOTE | 2024-12-16 11:52 | W.PN.CD ---
Addendum entered and electronically signed by Anthony Alvarez MD 12/16/24 13:05:
I saw and examined the patient.
The STOCK PARTS FABRICATOR's note was reviewed and I agree with the note.
feels well. No CP overnight .
echo Normal LV size and systolic function without regional wall motion abnormality.
LVEF 64%.
Mild concentric LV hypertrophy.
Dilated right ventricle with normal systolic function.
Aortic sclerosis without stenosis.
Mild mitral regurgitation.
Troponins negative. No clear evidence that CP represents angina.
Continue to optimize medical therapy including tx of HTN
Improved BP after restart of amlodipine. No clear reason it was stopped ( discussed with daughter)
Ultimately she will follow up with her oracle technical architect at [place]. If issues with recurrent pain could consider Lexiscan as outpatient.
Original Note:
Today's Communication / Plan
-
Chest pain has resolved and cardiac testing unremarkable. PPI added. Amlodipine resumed. BB adjusted to long-acting.
Impression / Plan
-
Chest discomfort:
-resolved
-trop normal, EKG stable, tele stable. Echo: Normal LV size and systolic function without regional wall motion abnormality. LVEF 64%. Mild concentric LV hypertrophy. Dilated right ventricle with normal systolic function. Aortic sclerosis without
stenosis. Mild mitral regurgitation. PPI added. Amlodipine resumed. It seems like she was not taking this though reasoning unclear in my conversation with she and her daughter. It is resumed and BP is better.
CAD with stenting:
-continue ASA, statin, BB
-cath 06/18/2021: Patent stents in the proximal right coronary artery and the proximal diagonal artery. Moderate disease including a 40-50% ostial circumflex lesion which is functionally a trifurcation lesion in combination with the first obtuse
marginal and a 40% lesion in the mid circumflex.
-resume CCB as above
HTN:
-improved with resumption of CCB
-continue BB- I did adjust to long-acting since she is taking it only once daily
Physical Exam
Vital Signs/Labs
Vital Signs
Temp Pulse Resp BP Pulse Ox
97.6 F 81 16 120/61 97
12/16/24 11:34 12/16/24 11:47 12/16/24 11:47 12/16/24 11:34 12/16/24 11:47
12/15/24 12/16/24 12/17/24
06:59 06:59 06:59
Actual Weight 63.3 kg
12/15/24 06:31
12/15/24 06:31
12/14/24
12:13
Sfj-Y-Pqwaofgsvxd Pept 327
LAB Results
12/14/24 12/15/24
12:13 12:37
Troponin I < 0.012 < 0.012
Physical Exam
Constitutional: No acute distress
EENT: Anicteric
Cardiovascular: Rhythm & rate is regular
Respiratory: Respiratory effort normal and Lungs clear to auscul.
Neuro/Psych: AO x 3
Data Reviewed
-
Date of Service: December 16, 2024
EKG: Other (tele SR)
Echo: Other (as noted)
Labs: Labs Reviewed by me
--- NOTE | 2024-12-16 12:33 | W.PN.HOSP.TC ---
Today's Communication/Plan
-
Discharge
Assessment / Plan
Assessment / Plan
84-year-old female with chest pain had nausea , poor appetite also has a cough.
Chest x-ray reviewed by me-no infiltrates
EKG reviewed by me-sinus rhythm LVH
Echo normal LV size and systolic function. EF 64%. Mild concentric LVH. Dilated RV with normal systolic function. Aortic sclerosis. Mild MR. Pulmonary artery systolic pressure decreased from 50 mmHg to 30 to 35 mmHg.
Awake alert oriented
Cardiovascular system S1-S2 appreciated
Chest clear to auscultation
Abdomen soft and nontender
Right ear with cerumen
# Right ear-pain
Cerumen noted difficulty visualizing TM.
Debrox otic drops
Tylenol for pain
Advised to use Motrin BID for 2 days with pepcid if has more pain ( D/W Daughter)
Outpatient ENT evaluation
# Chest pain
No evidence of COPD exacerbation-stop steroids
Troponin negative
Echo without any regional wall motion abnormalities
Cardiology evaluation noted and appreciated
PPI added as she has a history of GERD
# Hypertension-continue metoprolol. Patient was supposed not sure if she was taking it or not. Amlodipine added back. Blood pressure Much better
# Hyperlipidemia-continue atorvastatin
# Graves' disease-with resulting hypothyroidism-continue levothyroxine
# Coronary artery disease-with cardiac stents -RCA/proximal diagonal- ( s/p cardiac cath in 2020 without culprit lesion)continue aspirin, statin, metoprolol
# Chronic HFpEF-on Lasix. Not on SGLT2 inhibitors as outpatient
# Diabetes-diet controlled. Hemoglobin A1c was 5.7 on .
# History of bilateral carotid endarterectomies
# Anxiety and depression-continue sertraline
# Osteoporosis-continue alendronate as outpatient
# History of arthritis-type unknown
# History of anemia on p.o. iron supplements
# History of GERD-does not seem to be on medicines at present-added PPI
# Yf-larjsr-axoy in 2019
# DVT prophylaxis-Lovenox
# CODE STATUS- Full CODE-patient prefers full code
Discussed with nursing at bedside
D/W daughter Emi and updated.
Anticipated Discharge: Today
Subjective/Interval History
-
Date of Service: December 16, 2024
Objective Data
-
Vital Signs:
Vital Signs
Temp Pulse Resp BP Pulse Ox
97.6 F 81 16 120/61 97
12/16/24 11:34 12/16/24 11:47 12/16/24 11:47 12/16/24 11:34 12/16/24 11:47
I&O
12/15/24 12/16/24 12/17/24
06:59 06:59 06:59
Intake Total 240 / 240 1520 / 1520 180 / 180
Balance 240 / 240 1520 / 1520 180 / 180
--- NOTE | 2024-12-16 12:51 | W.DS.TRANS ---
Addendum entered and electronically signed by Yulia Cummings MD 12/16/24 13:49:
Dictation- [id number]
Original Note:
DC Summary - Content Production Specialist
-
Discharge Instructions:
Discharge Diagnosis/Procedures Chest Pain
Right ear ache
Hypertension
Hyperlipidemia
Grave's disease with resulting hypothyroidism
CAD w/ cardiac stents
Chronic HFpEF
Type 2 Diabetes
Anxiety and Depression
Osteoporosis
Arthritis
Anemia
GERD
Diet 2 Gram Sodium,Restrict fluids to 64 oz
Activity As tolerated
Driving Restrictions As prior to admission
Bathing Restrictions None
Other Services VN
Specialty Instructions Weigh Daily
Instructions:
Stand-Alone Forms:
Changes to Home Medications: Yes
Discharge Medications:
DC Medications w/original date entered in [facility]
alendronate 70 mg tablet (Fosamax) 70 mg PO WE osteoporosis 06/09/24
calcium carbonate (Calcium 600) 600 mg PO DAILY supplement 06/09/24
cholecalciferol (vitamin D3) 50 mcg (2,000 unit) tablet (Vitamin D3) 50 mcg PO DAILY supplement 06/09/24
sertraline 50 mg tablet 50 mg PO DAILY depression/anxiety 06/09/24
therapeutic multivitamin 1 tab PO DAILY supplement 06/09/24
vitamins A,C,Q-vpgt-ikqvwu 4,296 mcg-226 mg-90 mg capsule 1 cap PO BID supplement 06/09/24
cyanocobalamin (vitamin B-12) 1,000 mcg tablet 1,000 mcg PO DAILY #30 tabs 06/16/24
docusate sodium 100 mg capsule 100 mg PO BID #60 caps 06/16/24
acetaminophen 500 mg tablet (Tylenol Extra Strength) 1,000 mg PO BID Pain 12/14/24
aspirin 81 mg tablet,delayed release 81 mg PO DAILY Blood clot prevention/tx 12/14/24
atorvastatin 10 mg tablet (Lipitor) 10 mg PO HS High Cholesterol 12/14/24
ferrous sulfate 325 mg (65 mg iron) tablet 325 mg PO Q48H Supplement 12/14/24
furosemide 20 mg tablet 20 mg PO DAILYPRN PRN Weight gain 12/14/24
levothyroxine 125 mcg tablet (Synthroid) 125 mcg PO HS Thyroid 12/14/24
amlodipine 2.5 mg tablet 2.5 mg PO BID 30 days #60 tabs 12/15/24
metoprolol succinate 50 mg tablet,extended release 24 hr 50 mg PO DAILY 30 days #30 tabs 12/15/24
pantoprazole 40 mg tablet,delayed release 40 mg PO DAILY 30 days #30 tabs 12/15/24
carbamide peroxide 6.5 % ear drops (Ear Wax Removal Drops) 5 drp RIGHT EAR BID right ear pain #15 mL 12/16/24
Home Medication Changes
Changed to extended release
Amlodipine, Protonix, Debrox drops new
Pending Results: No
[2024-12-16] MEDS: MOTRIN 200 MG PO (12:53)
[2024-12-16] MEDS: PEPCID 20 MG PO (12:53)
--- NOTE | 2024-12-16 13:12 | CM ---
CM following rte: discharge planning.
Reviewed pt's chart, met with pt and daughter Emi at bedside.
Discharge order noted. Both pt and her daughter are aware. Daughter stated she will transport her mother home. Pt still OBS status.
Pt strongly declined VN services. Daughter supports pt's decision.
D/C plan: home with no after care VN services. Daughter to transport.
== END 2024-12-16 14:14 | disposition home or self-care (01) ==
LOC: 4 EAST ACU 15:13
PROVIDERS: Physician Assistant; ADMITTING PHYSICIAN Student in an Organized Health Care Education/Training Program; ATTENDING PHYSICIAN Hospitalist; CONSULT PHYSICIAN Internal Medicine Cardiovascular Disease; EMERGENCY PHYSICIAN Student in an Organized Health Care Education/Training Program; FAMILY PHYSICIAN Family Medicine
DX: R07.9 Chest pain, unspecified (principal); F17.200 Nicotine dependence, unspecified, uncomplicated; I11.0 Hypertensive heart disease with heart failure; I25.10 Atherosclerotic heart disease of native coronary artery without angina pectoris; Z95.5 Presence of coronary angioplasty implant and graft; Z11.52 Encounter for screening for COVID-19; J44.1 Chronic obstructive pulmonary disease with (acute) exacerbation; Z66 Do not resuscitate; E78.00 Pure hypercholesterolemia, unspecified; E05.00 Thyrotoxicosis with diffuse goiter without thyrotoxic crisis or storm; E11.9 Type 2 diabetes mellitus without complications; F32.A Depression, unspecified; F41.9 Anxiety disorder, unspecified; M81.0 Age-related osteoporosis without current pathological fracture; Z82.62 Family history of osteoporosis; Z79.899 Other long term (current) drug therapy; E03.9 Hypothyroidism, unspecified; I50.32 Chronic diastolic (congestive) heart failure; I70.0 Atherosclerosis of aorta; H92.01 Otalgia, right ear; M19.90 Unspecified osteoarthritis, unspecified site; D64.9 Anemia, unspecified; K21.9 Gastro-esophageal reflux disease without esophagitis
CPT/HCPCS: 71046; 80048; 80053; 82607; 83880; 84484; 85025; 85027; 87502; 87811; 93005; 93306; 94640; 96374; 97161; 99285; G0378

== ENCOUNTER 2025-01-05 09:41 | Emergency (ER) | payer OTHER, SELFPAY ==
[2025-01-05] VITALS (12 sets, daily range): BP systolic 89–186; BP diastolic 71–104; PULSE 81–86; BMI 24.9
--- NOTE | 2025-01-05 10:17 | ED.GENMED ---
History of Present Illness
General
Chief Complaint: Dizziness
Source: patient and family (Patient's daughter at bedside)
Exam Limitations: none
Time Seen by Provider: 01/05/25 09:59
Nursing documentation reviewed up to this point in time: agreed with
History of Present Illness
History of Present Illness:
84-year-old female with history of hypertension, hyperlipidemia, CAD, Graves' disease presenting to the emergency department for evaluation of lightheadedness and weakness. Patient's daughter states she picked her mom up for an ENT appointment this
morning and she initially seemed fine although while walking to the office she felt as if her gait was unsteady and she seemed generally weak. Patient then had a near syncopal episode while sitting down in the examination chair at ENTs office.
Patient herself states she feels weak, lightheaded, and has some blurred vision. She states that she woke up this morning with a rather severe headache.
Patient denies any fevers, chills, chest pain, or shortness of breath. She denies any neck pain, numbness/tingling in lower extremities. Patient denies any double vision or dysarthria. She denies a true spinning sensation.
Patient's daughter states she was at the ENT where she was diagnosed with a ear infection today. She states her mom often has headaches.
Patient is on a baby aspirin, otherwise no anticoagulation.
Past History
Past History
ED Past Medical History: CAD, HTN, Hypercholesterolemia, NIDDM, [place], Hypothyroidism and Other (Graves' disease)
ED Past Surgical History: Appendectomy, Cardiac (Cardiac stenting, carotid artery angioplasty), Cholecystectomy, Orthopedic (R total hip Replacement) and Tonsilectomy
Social History
Tobacco: Former smoker
Alcohol: Occasional
Drug: None
Personal:
Living: alone
Family History
Family History: Negative Diabetes, Hypertension, Early CAD, Asthma or Cancer
Review of Systems
Review of Systems
Allergies reviewed?: Yes
All Other Systems: ROS reviewed and negative except as documented in HPI and ROS
Phy Exam
Physical Exam
Physical Exam:
Vitals: Hypertensive, otherwise vital signs stable. Afebrile
General: Patient is in no apparent distress
Skin: Warm and dry, no rashes or lesions
Head: Normocephalic, atraumatic
Eyes: Sclera nonicteric. EOMs intact. Pupils equal round and reactive to light bilaterally. No nystagmus.
Ears: No erythema or mastoid tenderness bilaterally. No drainage from b/l external auditory canals
Throat: Protecting airway
Neck: Normal ROM, no cervical spine tenderness, no meningismus. No JVD
Cardiac: Regular rate and rhythm, no murmurs.
Pulm: Normal respiratory effort, no wheezes, rales, rhonchi heard on exam.
Abdomen: Abdomen soft and nontender.
Extremities: No evidence of cyanosis or edema. Generalized weakness of b/l lower extremities. Palpable DP pules.
Neuro: AAOx3. Fluid speech. No facial droop or asymmetry. Sensation intact and equal.
Psychiatric: Normal affect.
Course
Orders/Labs/Results
Orders:
Orders
01/05/25 10:14
Orthostatic VS- Treatment ONCE
0.9% Sodium Chloride 500 ml [Nss] 500 ml IV BOLUS
Acetaminophen [Tylenol] 650 mg PO NOW STA
01/05/25 10:15
CT Head W/o Iv Contrast Urgent
Comment:
Reason For Exam: dizziness, weakness
01/05/25 10:20
COVID-19 Antigen Urgent
Source: Nasal Swab
Complete Blood Count/With Diff Urgent
Comprehensive Metabolic Panel Urgent
Free T4 Urgent
TSH Reflex To Free T4 Urgent
Influenza A+B Rapid Molecular Urgent
JULITO Source: Nasal Swab
Specimen Description:
01/05/25 10:21
Electrocardiogram (*1) Urgent
Reason for Study: Fatigue / Weakness
EKG- Treatment ONCE
01/05/25 12:32
0.9% Sodium Chloride 500 ml [Nss] 500 ml IV BOLUS
Abnormal Lab Results
01/05/25
10:20
RBC 3.41 L 10^6/uL
(4.20-5.40)
Hgb 11.2 L g/dL
(12.0-16.0)
Hct 33.9 L %
(37.0-47.0)
MCV 99.4 H fL
(81.0-99.0)
MCH 32.8 H pg
(27.0-31.0)
Chloride 108 H mmol/L
(98-107)
Glucose 107 H mg/dl
(70-99)
TSH (Reflex) 5.97 H uIU/ml
(0.47-4.68)
01/05/25 10:20
01/05/25 10:20
Vital Signs
Initial and Last Documented VS:
Initial Vital Signs
Temp Pulse Resp BP Pulse Ox
98.3 F 79 18 157/79 96
01/05/25 09:46 01/05/25 09:46 01/05/25 09:46 01/05/25 09:46 01/05/25 09:46
Last Documented Vital Signs
Temp Pulse Resp BP Pulse Ox
98.3 F 77 20 156/82 96
01/05/25 09:46 01/05/25 14:30 01/05/25 14:30 01/05/25 14:10 01/05/25 14:30
MDM/Problems Addressed
Differential Diagnosis Includes:
Not limited to: Acute dehydration, viral illness, electrolyte imbalance, otitis media, cardiac arrhythmia,
MDM/Problems Addressed:
84 y.o female with orthostatic lightheadedness and near syncope associated with headache. No associated fever, chest pain, shortness of breath. No true dizziness/spinning. By my exam she has no complaint of blurred vision. She is currently being
treated for ear infection by ENT. Mildy hypertensive otherwise has stable signs. Physical exam as above. She is well appearing, alert and oriented x3 without any focal neurologic deficits and normal finger to nose. Visual urena intact.
Cardio/pulmonary assessment unremarkable. No LE pain/swelling. Do not suspect cardiac etiology, although will screen with EKG. Will send basic labs, viral studies, check CT head. Will obtain orthostatic vitals and UA. Tylenol for headache, IVF.
Update: On reassessment of patient at bedside - headache has improved with tylenol. She has been up to bathroom and ambulating with steady gate. Labs are without clinically significant abnormalities. Viral studies negative. EKG shows NSR without
acute ischemic changes. CT head without acute findings although did note opacification of right mastoid aircells. She has no erythema or mastoid tenderness on exam. Clinically do not suspect mastoditiis. Patient was found to be orthostatic and
mildly lightheaded when she stood up. Will give another 500 mL and reassess.
Update: Repeat orthostatic vital signs improved. Patient reports feeling much better and eager for discharge home. Ultimately- suspect dehydration / orthostasis contributing to symptoms today. Ongoing otitis media may be contributing to
lightheadedness sensation along with dysequilibrium. Low suspicion for central process. Offered admission for continued monitoring / IV hydration although pt would like to go home. Strict retun precautions discussed. She will follow with PCP and
ENT as scheduled. Patients daughter comfortable with plan. Case discussed with attending physician.
Chronic conditions affecting care:
Hypertension
Acute Exacerbation and/or Progression of Chronic Illness:
Acutely hypertensive
*Radiology
Radiology exam reviewed: preliminary read by ED provider and radiology read reviewed (Head CT-no acute intracranial abnormalities)
*Pulse Oximetry
Patient hypoxic: no
*EKG
Interpreted by ED Provider?: Yes
EKG Intrepretation Date: 01/05/25
Interpretation: abnormal
Comparison EKG: no changes
Heart Rate: 70
Rate: normal
Rhythm: sinus
[place]: normal axis
Interval: normal QT interval
QRS Pattern: normal QRS
Ischemia: no ischemia
*Area Intelligence Technician Interpretation
Rate: normal
Interpretation: normal
Heart Rate: 76
Rhythm: sinus
*Critical Care Note
Total Time (30-74mins, 75-104mins- exclusive of procedures): Not Applicable
ED Attending Note
-
Portions of this chart may have been created with voice recognition software.� Occasional wrong word or��sound alike� substitutions may have occurred due to the inherent limitations of voice recognition software.
Discharge Plan
Departure
Patient Disposition: Home (Routine Discharge)
Date of Disposition: 01/05/25
Time of Disposition: 14:26
Patient with high blood pressure during this ER visit?: Yes
Condition: Good
Covid-19: Negative COVID-19
Discharge Problem:
Orthostatic lightheadedness
Instructions: Orthostatic hypotension, Near Fainting (DC)
Prescriptions:
No Action
alendronate [Fosamax] 70 mg Tablet
70 mg PO WE
therapeutic multivitamin Tablet
1 tab PO DAILY
calcium carbonate [Calcium 600] 600 mg calcium (1,500 mg) Tablet
600 mg PO DAILY
sertraline 50 mg Tablet
50 mg PO DAILY
vitamins A,C,E-xywd-efoitz 4,296 mcg-226 mg-90 mg Capsule
1 cap PO BID
cholecalciferol (vitamin D3) [Vitamin D3] 50 mcg (2,000 unit) Tablet
50 mcg PO DAILY
docusate sodium 100 mg Capsule
100 mg PO BID Qty: 60 0RF
cyanocobalamin (vitamin B-12) 1,000 mcg tablet
1,000 mcg PO DAILY Qty: 30 1RF
atorvastatin [Lipitor] 10 mg Tablet
10 mg PO HS
acetaminophen [Tylenol Extra Strength] 500 mg Tablet
1,000 mg PO BID
levothyroxine [Synthroid] 125 mcg Tablet
125 mcg PO HS
aspirin 81 MG tablet,delayed release (DR/EC)
81 mg PO DAILY
ferrous sulfate 325 mg (65 mg iron) tablet
325 mg PO Q48H
furosemide 20 mg tablet
20 mg PO DAILYPRN PRN (Reason: Weight gain)
Rx Instructions:
PRN weight gain of 3 lbs in a day or 5 lbs in 5 days
metoprolol succinate 50 mg Tablet Extended Release 24 Hr
50 mg PO DAILY 30 Days Qty: 30 0RF
amlodipine 2.5 mg Tablet
2.5 mg PO BID 30 Days Qty: 60 0RF
pantoprazole 40 mg Tablet,Delayed Release (Dr/Ec)
40 mg PO DAILY 30 Days Qty: 30 0RF
Ear Wax Removal Drops 6.5 % Drops
5 drp RIGHT EAR BID Qty: 15 0RF
Referrals:
Anthony Candelaria, [Family Provider] - Follow up in 5-7 days
Activity Restrictions/Additional Instructions:
Return to the emergency department with any high fevers, severe headache, chest pain, shortness of breath, persistent lightheadedness/dizziness or episodes of fainting, severe ear pain, worsening in current symptoms, or any other concern
- As discussed�it is important that you stay very well-hydrated. You should move slowly from sitting to standing.
- Take all your medications as prescribed.
- Follow-up with ENT and PCP for further evaluation/management as needed and to ensure that symptoms are improving
Monitor your symptoms closely and return to the emergency department with any acute worsening/new symptoms or any other concerns
Interventions
Interventions:
*Risk Screen - Suicide Last Done: 01/05/25 09:46
*General Assessment Last Done: 01/05/25 09:46
*Neglect/Abuse Screening Last Done: 01/05/25 09:46
*ED- Fall Risk Assessment Last Done: 01/05/25 10:29
*ED COVID-19 Vaccine History Last Done: 01/05/25 10:29
*Nursing Disposition Last Done: 01/05/25 14:38
ED- Neurological Assessment Last Done: 01/05/25 10:29
ED- Cardiac Assessment Last Done: 01/05/25 10:29
Discharge Date and Time
Discharge Date/Time: 01/05/25 14:38
Print Language: COMORAN
[2025-01-05] MEDS: NSS 500 IV ×2 (10:28→12:45)
[2025-01-05 10:42] LABS: % Basophils 0.7 % (0-2); % Eosinophils 2.8 % (0-6); % Immature Granulocytes 0.3 % (0-0.5); % Lymphocytes 21.1 % (20.5-51.1); % Monocytes 7.9 % (1.7-9.3); % Neutrophils 67.2 % (42.2-75.2); Absolute Eosinophils 0.2 10^3/uL (0-0.7); Absolute Lymphocytes 1.3 10^3/uL (1.2-3.4); Absolute Monocytes 0.5 10^3/uL (0.1-0.6); Absolute Neutrophils 4.1 10^3/uL (1.4-6.5); Hematocrit 33.9 % (37.0-47.0); Hemoglobin 11.2 g/dL (12.0-16.0); Mean Corpuscular Hgb 32.8 pg (27.0-31.0); Mean Corpuscular Volume 99.4 fL (81.0-99.0); Mean Platelet Volume 10.3 fL (7.4-10.4); Nucleated Red Blood Cells % 0 %; Platelet Count 223 10^3/uL (130-400); Red Blood Cell Count 3.41 10^6/uL (4.20-5.40); White Blood Cell Count 6.1 10^3/uL (4.8-10.8)
[2025-01-05 10:56] LABS: ALT (SGPT) 15 U/L (0-35); AST (SGOT) 25 U/L (14-36); Albumin 3.8 g/dl (3.5-5.0); Alkaline Phosphatase 110 U/L (38-126); Blood Urea Nitrogen 15 mg/dl (7-17); Calcium 9.6 mg/dl (8.4-10.2); Carbon Dioxide 28 mmol/L (22-30); Chloride 108 mmol/L (98-107); Estimated Creatinine Clearance 40 ml/min; Glucose 107 mg/dl (70-99); Potassium 3.6 mmol/L (3.5-5.1); Sodium 142 mmol/L (135-145); Total Bilirubin 0.4 mg/dl (0.2-1.3); Total Protein 6.4 g/dl (6.3-8.2); eGFR > 60.00
[2025-01-05 10:57] LABS: COVID-19 Antigen Negative (Negative)
[2025-01-05] MEDS: TYLENOL 650 MG PO (11:12)
[2025-01-05 11:26] LABS: TSH Reflex To Free T4 5.97 uIU/ml (0.47-4.68)
[2025-01-05 11:55] LABS: Free T4 0.97 ng/dl (0.78-2.19)
== END 2025-01-05 14:38 | disposition home or self-care (01) ==
LOC: EMR 09:41
PROVIDERS: Physician Assistant; EMERGENCY PHYSICIAN Emergency Medicine; FAMILY PHYSICIAN Family Medicine
DX: R42 Dizziness and giddiness (principal); I10 Essential (primary) hypertension; I25.10 Atherosclerotic heart disease of native coronary artery without angina pectoris; E78.00 Pure hypercholesterolemia, unspecified; Z87.891 Personal history of nicotine dependence; Z11.52 Encounter for screening for COVID-19
CPT/HCPCS: 99285; 96360; 96361; 70450; 80053; 84439; 84443; 85025; 87502; 87811; 93005

== ENCOUNTER → 2025-07-27 08:55 | Outpatient (REF) | payer OTHER, SELFPAY | LOC: HWRAD 08:55 | PROVIDERS: ATTENDING PHYSICIAN Nurse Practitioner Family | DX: R10.9 Unspecified abdominal pain (principal) | CPT/HCPCS: 76700 ==

== ENCOUNTER 2025-07-27 12:01 | Emergency (ER) | payer OTHER, SELFPAY ==
[2025-07-27 12:11] VITALS: BP 138/61
[2025-07-27 13:54] LABS: Hematocrit 35.7 % (37.0-47.0); Hemoglobin 11.6 g/dL (12.0-16.0); Mean Corp Hgb Conc. 32.5 g/dL (33.0-37.0); Mean Corpuscular Volume 100.3 fL (81.0-99.0); Nucleated Red Blood Cells % 0 %; Platelet Count 173 10^3/uL (130-400); Red Cell Dist. Width 12.8 % (11.5-14.5)
[2025-07-27 14:08] LABS: ALT (SGPT) 15 U/L (0-35); AST (SGOT) 23 U/L (14-36); Albumin 4.0 g/dl (3.5-5.0); Alkaline Phosphatase 77 U/L (38-126); Blood Urea Nitrogen 13 mg/dl (7-17); Calcium 9.3 mg/dl (8.4-10.2); Carbon Dioxide 29 mmol/L (22-30); Chloride 108 mmol/L (98-107); Glucose 108 mg/dl (70-99); Lipase 84 U/L (23-300); Potassium 3.1 mmol/L (3.5-5.1); Sodium 141 mmol/L (135-145); Total Protein 6.2 g/dl (6.3-8.2); eGFR > 60.00
--- NOTE | 2025-07-27 14:50 | ED.GENMED ---
History of Present Illness
<Rosalinda Michelle PA-C - Last Filed: 07/30/25 23:52>
General
Chief Complaint: Abnormal Lab Value
Time Seen by Provider: 07/27/25 12:51
History of Present Illness
History of Present Illness:
see MDM
Past History
<Rosalinda Michelle PA-C - Last Filed: 07/30/25 23:52>
Past History
ED Past Medical History: CAD, HTN, Hypercholesterolemia, NIDDM, [place], Hypothyroidism and Other (Graves' disease)
ED Past Surgical History: Appendectomy, Cardiac (Cardiac stenting, carotid artery angioplasty), Cholecystectomy, Orthopedic (R total hip Replacement) and Tonsilectomy
Social History
Tobacco: Former smoker
Alcohol: Occasional
Drug: None
Personal:
Living: alone
Family History
Family History: Negative Diabetes, Hypertension, Early CAD, Asthma or Cancer
Phy Exam
<Rosalinda Michelle PA-C - Last Filed: 07/30/25 23:52>
Physical Exam
Physical Exam:
see MDM
Course
<Rosalinda Michelle PA-C - Last Filed: 07/30/25 23:52>
Orders/Labs/Results
Orders:
Orders
07/27/25 13:36
Complete Blood Count/With Diff Urgent
Comprehensive Metabolic Panel Urgent
Lipase Urgent
Magnesium Urgent
Comment: ADD ON
07/27/25 14:00
CT Abd/Pel (IV only)-DH only Urgent
Comment:
Reason For Exam: epigastric pain, dysphagia
07/27/25 14:13
Add On- LAB Urgent
Tests Added?: magnesium
07/27/25 15:08
Potassium Chloride Powder [Klor-Con] 20 meq PO NOW STA
Abnormal Lab Results
07/27/25
13:36
RBC 3.56 L 10^6/uL
(4.20-5.40)
Hgb 11.6 L g/dL
(12.0-16.0)
Hct 35.7 L %
(37.0-47.0)
MCV 100.3 H fL
(81.0-99.0)
MCH 32.6 H pg
(27.0-31.0)
MCHC 32.5 L g/dL
(33.0-37.0)
MPV 11.4 H fL
(7.4-10.4)
Lymphocytes % 18.0 L %
(20.5-51.1)
Potassium 3.1 L mmol/L
(3.5-5.1)
Chloride 108 H mmol/L
(98-107)
Glucose 108 H mg/dl
(70-99)
Total Protein 6.2 L g/dl
(6.3-8.2)
07/27/25 13:36
07/27/25 13:36
Vital Signs
Initial and Last Documented VS:
Initial Vital Signs
Temp Pulse Resp BP Pulse Ox
36.9 C 55 16 138/61 98
07/27/25 12:11 07/27/25 12:11 07/27/25 12:11 07/27/25 12:11 07/27/25 12:11
Last Documented Vital Signs
Temp Pulse Resp BP Pulse Ox
36.9 C 79 20 127/88 99
07/27/25 12:11 07/27/25 16:00 07/27/25 16:00 07/27/25 16:00 07/27/25 16:00
Seralt;Jeronimo Richard PA-C - Last Filed: 07/27/25 18:35>
Orders/Labs/Results
Orders:
Orders
07/27/25 13:36
Complete Blood Count/With Diff Urgent
Comprehensive Metabolic Panel Urgent
Lipase Urgent
Magnesium Urgent
Comment: ADD ON
07/27/25 14:00
CT Abd/Pel (IV only)-DH only Urgent
Comment:
Reason For Exam: epigastric pain, dysphagia
07/27/25 14:13
Add On- LAB Urgent
Tests Added?: magnesium
07/27/25 15:08
Potassium Chloride Powder [Klor-Con] 20 meq PO NOW STA
Abnormal Lab Results
07/27/25
13:36
RBC 3.56 L 10^6/uL
(4.20-5.40)
Hgb 11.6 L g/dL
(12.0-16.0)
Hct 35.7 L %
(37.0-47.0)
MCV 100.3 H fL
(81.0-99.0)
MCH 32.6 H pg
(27.0-31.0)
MCHC 32.5 L g/dL
(33.0-37.0)
MPV 11.4 H fL
(7.4-10.4)
Lymphocytes % 18.0 L %
(20.5-51.1)
Potassium 3.1 L mmol/L
(3.5-5.1)
Chloride 108 H mmol/L
(98-107)
Glucose 108 H mg/dl
(70-99)
Total Protein 6.2 L g/dl
(6.3-8.2)
07/27/25 13:36
07/27/25 13:36
Vital Signs
Initial and Last Documented VS:
Initial Vital Signs
Temp Pulse Resp BP Pulse Ox
36.9 C 55 16 138/61 98
07/27/25 12:11 07/27/25 12:11 07/27/25 12:11 07/27/25 12:11 07/27/25 12:11
Last Documented Vital Signs
Temp Pulse Resp BP Pulse Ox
36.9 C 79 20 127/88 99
07/27/25 12:11 07/27/25 16:00 07/27/25 16:00 07/27/25 16:00 07/27/25 16:00
<Rosalinda Michelle PA-C - Last Filed: 07/30/25 23:52>
MDM/Problems Addressed
Differential Diagnosis Includes:
see MDM
MDM/Problems Addressed:
Note:
CHIEF COMPLAINT(S)
Abdominal pain and difficulty swallowing.
HISTORY OF PRESENT ILLNESS
The patient, 84 y/o female, has been experiencing abdominal pain and difficulty swallowing for the past two to three months. The abdominal pain is localized to specific areas, as indicated by the patient and her daughter during the examination. The
difficulty in swallowing occurs primarily with solid foods, as the patient reports that food seems to stop or get stuck at certain points in the esophagus, though eventually it does pass. She does not regurgitate, and liquids pass more easily but
may occasionally get stuck. The onset of symptoms prompted a visit to their family physician, who ordered an ultrasound. The abdominal ultrasound revealed a dilated bile duct. There is noted unexplained weight loss, and the patient reports not being
able to eat sufficient amounts due to swallowing difficulties
The patient also reports occasional constipation, with normal brown stools. She experiences mild abdominal discomfort at present and reports pain mainly down the central abdomen.
she has not seen anyone else for this complaint, denies previous endoscopy recently
pt did not mention but she has h/o hiatal hernia
PAST MEDICAL AND SURGICAL HISTORY
The patient has a history of high blood pressure and high cholesterol. She is a former smoker, having quit many years ago. She has previously undergone gallbladder removal surgery approximately 55 years ago.
SOCIAL DETERMINANTS AFFECTING HEALTH
The patient lives independently, as stated by her daughter.
PHYSICAL EXAM
GENERAL: Alert , in no apparent distress, looks well, comfortable, not jaundiced
EYE: pupils equal and reactive
NECK: Supple
ENT: o/p clr, mmm.
CARDIAC: Regular rate and rhythm .
LUNGS: Clear breath sounds bilaterally, no acute respiratory distress, no wheezes/rales/rhonchi
ABDOMEN: Soft, mild epigastric tenderness, no r/g, no cvat, normal bowel sounds
NEUROLOGICAL: Alert and oriented, no focal neuro deficits
SKIN: Warm and dry, skin intact.
MUSCULOSKELETAL: No edema, well perfused. neg blayne's sign
PSYCH: Normal and appropriate interaction.
- Nursing notes reviewed and vital signs reviewed.
PLAN
Initiate blood work to assess liver markers to determine the next steps, potentially including advanced imaging like a MRI or a computed tomography scan. Consider referral for potential endoscopic evaluation to assess swallowing difficulties.
DIFFERENTIAL DIAGNOSIS
The Differential Diagnosis includes, in no particular order and is not limited to:
1. Esophageal stricture
2. Esophageal cancer
3. Achalasia
4. Gastroesophageal reflux disease (GERD)
5. Pancreatic mass
6. Gallstones
7. Stricture of the bile duct
8. Hiatal hernia
9. [place] diverticulum
10. Functional dysphagia
07/27/25 - 15:44
The patients blood work shows normal liver markers and normal pancreatic enzymes, with the exception of a low potassium level at 3.1, for which potassium supplementation has been ordered. A CT scan of the abdomen has been planned to further
investigate the patients condition, pt may have GERD, has had protonix before but d/c and never saw ;GI., which may be contributing to symptoms by affecting gastric motility. No immediate need for an MRI is seen given the normal liver markers.
Post-surgical changes may explain any observed dilation of the ducts. The attending physician, Bruce, will review the CT scan results once available and determine if additional follow-up with a GI specialist is necessary, especially if no acute
issues are identified requiring hospitalization.
<Rosalinda Michelle PA-C - Last Filed: 07/30/25 23:52>
*Pulse Oximetry
SaO2: 98
Oxygen Mode of Delivery: Room air
Patient hypoxic: no (99)
*Critical Care Note
Total Time (30-74mins, 75-104mins- exclusive of procedures): Not Applicable
<Jeronimo Richard PA-C - Last Filed: 07/27/25 18:35>
Update Note
Update Note:
Received care of patient pending CT of abdomen. CT of abdomen reviewed without obvious acute finding. Common bile duct dilated likely secondary to postcholecystectomy state.
ED Attending Note
<Rosalinda Michelle PA-C - Last Filed: 07/30/25 23:52>
-
Portions of this chart may have been created with voice recognition software.� Occasional wrong word or��sound alike� substitutions may have occurred due to the inherent limitations of voice recognition software.
Discharge Plan
Departure
Patient Disposition: Home (Routine Discharge)
Date of Disposition: 07/27/25
Time of Disposition: 18:32
Patient with high blood pressure during this ER visit?: No
Discharge Problem:
Abdominal pain
Prescriptions:
New
omeprazole 20 mg capsule,delayed release(DR/EC)
20 mg PO DAILY Qty: 14 0RF
No Action
alendronate [Fosamax] 70 mg Tablet
70 mg PO WE
therapeutic multivitamin Tablet
1 tab PO DAILY
calcium carbonate [Calcium 600] 600 mg calcium (1,500 mg) Tablet
600 mg PO DAILY
sertraline 50 mg Tablet
50 mg PO DAILY
vitamins A,C,L-hkko-fjbpyd 4,296 mcg-226 mg-90 mg Capsule
1 cap PO BID
cholecalciferol (vitamin D3) [Vitamin D3] 50 mcg (2,000 unit) Tablet
50 mcg PO DAILY
docusate sodium 100 mg Capsule
100 mg PO BID Qty: 60 0RF
cyanocobalamin (vitamin B-12) 1,000 mcg tablet
1,000 mcg PO DAILY Qty: 30 1RF
atorvastatin [Lipitor] 10 mg Tablet
10 mg PO HS
acetaminophen [Tylenol Extra Strength] 500 mg Tablet
1,000 mg PO BID
levothyroxine [Synthroid] 125 mcg Tablet
125 mcg PO HS
aspirin 81 MG tablet,delayed release (DR/EC)
81 mg PO DAILY
ferrous sulfate 325 mg (65 mg iron) tablet
325 mg PO Q48H
furosemide 20 mg tablet
20 mg PO DAILYPRN PRN (Reason: Weight gain)
Rx Instructions:
PRN weight gain of 3 lbs in a day or 5 lbs in 5 days
metoprolol succinate 50 mg Tablet Extended Release 24 Hr
50 mg PO DAILY 30 Days Qty: 30 0RF
amlodipine 2.5 mg Tablet
2.5 mg PO BID 30 Days Qty: 60 0RF
pantoprazole 40 mg Tablet,Delayed Release (Dr/Ec)
40 mg PO DAILY 30 Days Qty: 30 0RF
Ear Wax Removal Drops 6.5 % Drops
5 drp RIGHT EAR BID Qty: 15 0RF
Referrals:
Andrea David MD [Active, Gastroenterology]
Guillermo Merritt CRNP [Family Provider, Family Practice]
Activity Restrictions/Additional Instructions:
Please follow-up with GI. Take antacid as directed. Return if worse otherwise
Interventions
Interventions:
*Risk Screen - Suicide Last Done: 07/27/25 12:11
*General Assessment Last Done: 07/27/25 16:00
*Neglect/Abuse Screening Last Done: 07/27/25 12:11
*ED COVID-19 Vaccine History Last Done: 07/27/25 16:00
*ED Influenza Vaccine History Last Done: 07/27/25 16:00
*Nursing Disposition Last Done: 07/27/25 18:52
Discharge Date and Time
Discharge Date/Time: 07/27/25 18:53
Print Language: BOLIVIAN
[2025-07-27 15:00] LABS: Magnesium 1.8 mg/dl (1.6-2.3)
[2025-07-27] MEDS: KLOR-CON 20 MEQ PO (15:21)
[2025-07-27 16:00] VITALS: BP 127/88
== END 2025-07-27 18:53 | disposition home or self-care (01) ==
LOC: EMR 12:01
PROVIDERS: Physician Assistant; EMERGENCY PHYSICIAN Emergency Medicine; FAMILY PHYSICIAN Nurse Practitioner Family
DX: R10.9 Unspecified abdominal pain (principal); I25.10 Atherosclerotic heart disease of native coronary artery without angina pectoris; I10 Essential (primary) hypertension; E78.00 Pure hypercholesterolemia, unspecified; E11.9 Type 2 diabetes mellitus without complications; I25.2 Old myocardial infarction; E05.00 Thyrotoxicosis with diffuse goiter without thyrotoxic crisis or storm; E03.9 Hypothyroidism, unspecified; Z82.49 Family history of ischemic heart disease and other diseases of the circulatory system; Z87.891 Personal history of nicotine dependence; Z90.49 Acquired absence of other specified parts of digestive tract; Z95.5 Presence of coronary angioplasty implant and graft; Z96.641 Presence of right artificial hip joint
CPT/HCPCS: 99284; 74177; 76700; 80053; 83690; 83735; 85025; Q9967

== ENCOUNTER 2025-08-15 19:51 | Inpatient (IN) | payer OTHER, SELFPAY ==
[2025-08-15] VITALS (7 sets, daily range): BP systolic 160–187; BP diastolic 67–108; BMI 22.9
--- NOTE | 2025-08-15 11:50 | ED.GENMED ---
History of Present Illness
General
Chief Complaint: Abdominal Pain
Source: patient
Exam Limitations: none
Time Seen by Provider: 08/15/25 11:07
Nursing documentation reviewed up to this point in time: agreed with
History of Present Illness
History of Present Illness:
Patient is an 84-year-old female with history hypertension, hyperlipidemia, CAD who presents to the emergency department for evaluation of abdominal pain. Patient suffers from hearing loss and daughter is present to assist with history taking.
Patient's daughter states that her mom called her this morning stating that she was having worsening abdominal pain from her upper abdomen down to her lower abdomen. She reports very poor appetite over the past few days with little p.o. intake.
Apparently her last bowel movement was 08/12/2025. Patient has felt extremely weak over the past few days. She denies any associated fever, dysuria. No chest pain or shortness of breath. No productive cough or other viral symptoms.
Of note�patient's daughter states she has been struggling with similar abdominal pain intermittently over the past few weeks however it seems to be worsening. She was seen in the emergency department approximately 2/3 weeks ago with unremarkable
workup and discharged home.
Past History
Past History
ED Past Medical History: CAD, HTN, Hypercholesterolemia, NIDDM, NC, Hypothyroidism and Other (Graves' disease)
ED Past Surgical History: Appendectomy, Cardiac (Cardiac stenting, carotid artery angioplasty), Cholecystectomy, Orthopedic (R total hip Replacement) and Tonsilectomy
Social History
Tobacco: Former smoker
Alcohol: Occasional
Drug: None
Personal:
Living: alone
Family History
Family History: Negative Diabetes, Hypertension, Early CAD, Asthma or Cancer
Review of Systems
Review of Systems
Allergies reviewed?: Yes
All Other Systems: ROS reviewed and negative except as documented in HPI and ROS
Phy Exam
Physical Exam
Physical Exam:
Vitals: Hypertensive, otherwise vital signs stable. Afebrile
General: Patient is generally weak appearing.
Skin: Warm and dry, no rashes or lesions
Head: Normocephalic, atraumatic
Eyes: Sclera nonicteric. EOMs intact. No nystagmus.
Throat: Protecting airway
Neck: Normal ROM, no cervical spine tenderness, no meningismus
Cardiac: Regular rate and rhythm, no murmurs.
Pulm: Normal respiratory effort. Lungs clear
Abdomen: Abdomen soft. Diffuse abdominal tenderness. No rebound or guarding
Extremities: No evidence of cyanosis or edema. 2+ palpable DP pulses bilaterally
Neuro: AAOx3. Grossly intact
Psychiatric: Normal affect.
Course
Orders/Labs/Results
Orders:
Orders
08/15/25 11:41
0.9% Sodium Chloride 500 ml [Nss] 500 ml IV BOLUS
08/15/25 11:43
Electrocardiogram (*1) Urgent
Reason for Study: Abdominal Pain
CT Abd/pelvis W Iv Cont Urgent
Comment:
Reason For Exam: epigastric pain
EKG- Treatment ONCE
08/15/25 11:58
COVID-19 Antigen Urgent
Source: Nasal Swab
Complete Blood Count/With Diff Urgent
Comprehensive Metabolic Panel Urgent
Lactic Acid Q4H
Comment: CANCEL 2nd LACTIC ACID IF 1st LACTIC ACID IS LESS THAN 2
Lipase Urgent
Magnesium Urgent
Urinalysis Reflex To Culture Urgent
Date Specimen was Collected: 08/15/25
Time Specimen was Collected: 11:57
Urine Microscopic Reflex Cult Urgent
Influenza A+B Rapid Molecular Urgent
JULITO Source: Nasal Swab
Specimen Description:
Urine Culture Urgent
JULITO Source: U
Specimen Description:
Date Specimen was Collected: 08/15/25
Time Specimen was Collected: 11:57
08/15/25 13:34
Potassium Chloride [KCl] 40 meq PO NOW STA
08/15/25 Dinner
Cholesterol Lowering
At Your Request: Full Participation
Cholesterol Lowering: Sodium, 2 Gram
08/15/25 15:17
Electrocardiogram (*1) Urgent
Reason for Study: Abdominal Pain
EKG- Treatment ONCE
08/15/25 15:18
CR Chest - 2 Views Urgent
Comment:
Reason For Exam: SOB
08/15/25 16:32
NT-proBNP Urgent
Troponin I Urgent
08/15/25 16:35
Urine Microscopic Reflex Cult Urgent
Urine Reflex Culture from UA [Urinalysis Reflex To Culture] Urgent
Date Specimen was Collected: 08/15/25
Time Specimen was Collected: 16:33
Urine Culture Urgent
JULITO Source: U
Specimen Description:
Date Specimen was Collected: 08/15/25
Time Specimen was Collected: 16:33
08/15/25 16:39
Potassium Chloride [KCl] 40 meq .ROUTE .STK-MED ONE
08/15/25 17:22
Add On- LAB Urgent
Tests Added?: pro-BNP
08/15/25 18:26
Furosemide [Lasix] 40 mg IV NOW STA
08/15/25 19:19
Admit/Transfer Patient As Directed
Co-Sign Provider:
Level of Care: Inpatient admission
Assign to:: Telemetry
Physician / Group: Carolann
Diagnosis: CHF
Reason for Telemetry: Subacute Heart Failure
Date to Stop Telemetry: 08/17/25
Time to Stop Telemetry: 11:00
Reason for Hospitalization: CHF
Expected length of stay greater than two midnights?: Yes
ELOS- Estimated Length of Stay in days: 2
I certify the patient meets the requirements for IP care: Yes
PRN Pain Medication Management As Directed
May give lesser potent ordered pain med per pt: Yes
preference::
Protocol:: Medication orders for pain may be administered in a
manner that supports deferring to patient preference
when the pt is:
- Requesting an ordered lesser potent pain medication.
Least to most potent pain medications are defined
as: acetaminophen < NSAID < tramadol < opioids
(morphine, oxycodone, hydromorphone).
- Requesting a lesser dose of the same medication IF
ORDERED.
- Requesting a less intrusive route of administration
if both routes are prescribed by the provider (PO <
IV).
08/15/25 19:20
Code Status As Directed
Resuscitation Status: Do not resuscitate
Reached after discussion with pt or family/Healthcare POA: Yes
08/15/25 19:21
DNR Bracelet Application ONCE
08/15/25 19:42
ECG [Electrocardiogram (*1)] Urgent
Reason for Study: Shortness of Breath
EKG- Treatment ONCE
08/15/25 21:21
Acetaminophen [Tylenol] 650 mg PO Q6HPRN PRN
Amlodipine [Norvasc] 2.5 mg PO BID
Ipratropium/Albuterol Sulfate [Duoneb] 3 ml INH R Q4HPRN PRN
Ketorolac [Toradol] 10 mg IV Q6HPRN PRN
Ondansetron Injectable [Zofran] 4 mg IV Q6HPRN PRN
08/15/25 21:21
HF DIETARY CONSULT Routine
HF EDUCATOR CONSULT Routine
Comment:
Activity As Directed
Activity Level: With Assistance
Intake/ Output As Directed
Frequency: Per unit guidelines
Patient Education As Directed
Type: CHF folder
Comment: give on admission. Document in Interdisciplinary Education record
Sleep Apnea Assessment by RN As Directed
Comment:
Physician Instructions:
Vital Signs As Directed
Frequency: Other
Additional Instructions:: Q12 or per unit guidelines if more frequent.
Weight As Directed
Frequency: Daily
Type of Scale: Standing Scale
Comment: Daily morning weight. If unable to stand, use balanced bed scale.
Weight As Directed
Frequency: Once
Type of Scale: Standing Scale
Comment: Upon Admission. If unable to stand, use balanced bed scale.
O2 Therapy [RESP] Routine
Nasal Cannula Liter Flow: 4 LPM
Titrate/Wean O2 to maintain O2 sat greater than (%): 93
Pulse Ox/cont/shift [RESP] Routine
Quantity: 1
Special Instructions: Daily pulse oximetry at rest. If greater than 92% at rest also obtain pulse oximetry
while ambulating as tolerated.
DX Deep Vein Thrombosis Video Routine
08/15/25 22:00
Atorvastatin [Lipitor] 20 mg PO HS
08/15/25 22:24
Troponin I Q6H
Comment: at admission & every 6 hours x 2 (3 total), ECG to be done with each level
08/16/25 04:21
Basic Metabolic Panel IN AM
Cardiovascular Evaluation IN AM
Magnesium IN AM
TSH Reflex To Free T4 IN AM
Troponin I Q6H
Comment: at admission & every 6 hours x 2 (3 total), ECG to be done with each level
08/16/25 08:00
Aspirin Low Dose EC [Aspir Low (Enteric Coated)] 81 mg PO DAILY
Furosemide [Lasix] 40 mg IV BID AT 0800,1600
Levothyroxine [Synthroid] 175 mcg PO DAILY
Metoprolol Xl [Toprol Xl] 50 mg PO DAILY
Pantoprazole [Protonix] 40 mg PO DAILY
Sertraline HCl [Zoloft] 50 mg PO DAILY
08/16/25 18:00
Enoxaparin Sodium [Lovenox] 40 mg SC QPM
08/17/25 11:00
DC Protocol for Telemetry ONCE
Abnormal Lab Results
08/15/25 08/15/25 08/15/25
11:58 16:32 16:35
RBC 3.59 L 10^6/uL
(4.20-5.40)
Hgb 11.4 L g/dL
(12.0-16.0)
Hct 34.0 L %
(37.0-47.0)
MCH 31.8 H pg
(27.0-31.0)
MPV 11.1 H fL
(7.4-10.4)
Abs Immat Gran (auto) 0.1 H 10^3/uL
(0-0.05)
Absolute Monos (auto) 0.7 H 10^3/uL
(0.1-0.6)
Immature Gran % 0.6 H %
(0-0.5)
Lymphocytes % 16.6 L %
(20.5-51.1)
Potassium 3.0 L mmol/L
(3.5-5.1)
Glucose 105 H mg/dl
(70-99)
Troponin I 0.059 H* ng/ml
Urine Ketones 2+ A 1+ A
(Negative) (Negative)
Ur Occult Blood Reflex 2+ A 1+ A
(Negative) (Negative)
Urine Urobilinogen 2+ A
(Neg - 1+)
Leukocyte Esterase Rfl 3+ A 1+ A
(Negative) (Negative)
Urine WBC (Reflex) 70-80 A /HPF
(0-5)
Urine Bacteria (Reflex) Many A Many A
(Negative) (Negative)
Urine Albumin (Reflex) 3+ A 1+ A
(Neg - Trace) (Neg - Trace)
08/15/25 11:58
08/15/25 11:58
Vital Signs
Initial and Last Documented VS:
Initial Vital Signs
Temp Pulse Resp BP Pulse Ox
97.9 F 61 16 183/69 94
08/15/25 11:04 08/15/25 11:04 08/15/25 11:04 08/15/25 11:04 08/15/25 11:04
Last Documented Vital Signs
Temp Pulse Resp BP Pulse Ox
98.6 F 92 20 103/82 98
08/16/25 15:02 08/16/25 15:02 08/16/25 15:02 08/16/25 15:02 08/16/25 15:02
MDM/Problems Addressed
Differential Diagnosis Includes:
Not limited to: Acute dehydration, electrolyte abnormality, cardiac arrhythmia, viral gastroenteritis, colitis, diverticulitis, pancreatitis, cystitis, etc.
MDM/Problems Addressed:
84-year-old female with history as documented presenting with intermittent abdominal pain with poor PO intake and generalized weakness. Seen in ED a few weeks prior w/ similar symptoms with negative abdominal workup. No fevers or productive cough.
No chest pain. Vitals stable on arrival. On exam, patient appears in no distress. She does have some mild diffuse tenderness throughout her abdomen without any rebound or guarding. Unremarkable cardio/pulmonary exam. No lower extremity edema.
An abdominal workup was performed, including basic labs and CT abdomen/pelvis. Lab reveals hypokalemia without other acute findings. CT abdomen/pelvis with new bilateral plural effusions however no acute intra-abdominal pathology. UA is quite
contaminated � will try to obtain new specimen.
On reassessment, patient was on supplemental oxygen (not requiring O2 on my initial evaluation), and I was told by nurse that she was desatting into mid 80s with very minimal exertion (walk to bathroom). Patient is a poor historian and it is unclear
how long this has been occurring.
With new pleural effusions seen CT scan � possible component of CHF. While initial EKG was without any acute ischemic changes � given hypoxia and persistent upper abdominal pain � will add on troponin, pro-bap, chest x-ray. She has no chest pain.
Troponin mildly elevated, which I suspect to be secondary to demand ischemia with pro-BNP of 6000 and chest x-ray with evidence of interstitial pulmonary edema.
At this point, overall impression is new onset CHF. No evidence of peripheral edema. This is likely contributing to patients concern of generalized weakness. Repeat UA does not appear infected.
She will require admission for diuresis, cardiology evaluation, possible echo. Potassium repleted and patient given IV Lasix in ED. Accepted to hospitalist service in stable condition.
Chronic conditions affecting care:
Hypertension, hyperlipidemia, CAD
Acute Exacerbation and/or Progression of Chronic Illness:
N/A
*Radiology
Radiology exam reviewed: radiology read reviewed
*Pulse Oximetry
SaO2: 94
Oxygen Mode of Delivery: Room air
Patient hypoxic: no
*EKG
Interpreted by ED Provider?: Yes
EKG Intrepretation Date: 08/15/25
Interpretation: abnormal
Comparison EKG: changes noted
Heart Rate: 96
Rate: normal
Rhythm: sinus and PVC's
[place]: normal axis
Interval: long QT
QRS Pattern: normal QRS
Ischemia: non-specific ST changes
*Critical Care Note
Total Time (30-74mins, 75-104mins- exclusive of procedures): Not Applicable
Data Reviewed
Review of Other/Old Records Reveals: Discharge Summary (ED visit 07/27/2025 with similar abdominal pain discharged home with normal workup)
ED Attending Note
-
Portions of this chart may have been created with voice recognition software.� Occasional wrong word or��sound alike� substitutions may have occurred due to the inherent limitations of voice recognition software.
Discharge Plan
Departure
Patient Disposition: Admit
Date of Disposition: 08/15/25
Time of Disposition: 18:28
Presentation/result/management discussed w/ accepting MD/DO: Hospitalist
Discharge Problem:
Generalized weakness, Dyspnea on exertion
Interventions
Interventions:
*Risk Screen - Suicide Last Done: 08/15/25 23:13
*General Assessment Last Done: 08/15/25 11:23
*Neglect/Abuse Screening Last Done: 08/15/25 11:04
*ED- Fall Risk Assessment Last Done: 08/15/25 21:17
*ED COVID-19 Vaccine History Last Done: 08/15/25 23:13
*ED Influenza Vaccine History Last Done: 08/15/25 21:17
*Nursing Disposition Last Done: 08/15/25 21:17
CP-Izovkt-Pzfjghhcsy Assessment Last Done: 08/15/25 11:23
[2025-08-15] MEDS: NSS 500 IV (11:59)
[2025-08-15 12:22] LABS: Hematocrit 34.0 % (37.0-47.0); Hemoglobin 11.4 g/dL (12.0-16.0); Mean Corp Hgb Conc. 33.5 g/dL (33.0-37.0); Mean Corpuscular Volume 94.7 fL (81.0-99.0); Nucleated Red Blood Cells % 0 %; Platelet Count 194 10^3/uL (130-400); Red Cell Dist. Width 13.0 % (11.5-14.5)
[2025-08-15 12:29] LABS: Urine Character Clear (Clear)
[2025-08-15 12:38] LABS: Urine Squamous Cell >30 /LPF (Few)
[2025-08-15 12:40] LABS: ALT (SGPT) 15 U/L (0-35); AST (SGOT) 24 U/L (14-36); Albumin 4.2 g/dl (3.5-5.0); Alkaline Phosphatase 110 U/L (38-126); Blood Urea Nitrogen 8 mg/dl (7-17); Calcium 9.4 mg/dl (8.4-10.2); Carbon Dioxide 23 mmol/L (22-30); Chloride 105 mmol/L (98-107); Glucose 105 mg/dl (70-99); Lipase 63 U/L (23-300); Magnesium 1.8 mg/dl (1.6-2.3); Potassium 3.0 mmol/L (3.5-5.1); Sodium 136 mmol/L (135-145); Total Protein 6.7 g/dl (6.3-8.2); Urine Red Blood Cell 0-2 /HPF (0-2); Urine White Cell 70-80 /HPF (0-5); eGFR > 60.00
[2025-08-15 12:41] LABS: COVID-19 Antigen Negative (Negative)
[2025-08-15] MEDS: KCL 40 MEQ PO (16:40)
[2025-08-15 17:20] LABS: Troponin I 0.059 ng/ml
[2025-08-15 17:36] LABS: Urine Character Clear (Clear)
[2025-08-15 17:45] LABS: Urine Squamous Cell >30 /LPF (Few)
[2025-08-15 17:46] LABS: Urine Red Blood Cell 0-2 /HPF (0-2)
--- NOTE | 2025-08-15 18:55 | HPS.HSE ---
Family Physician
-
Family Physician: MARIBEL Eid
Chief Complaint
-
Abdominal discomfort
History of Present Illness
This is a 84-year-old female who has a past medical history significant for hypertension, hyperlipidemia, hypothyroidism, plp-wrtpjqy-fiistbvkb diabetes presenting to the emergency department with complaints of abdominal pain and was found to be
hypoxic to the 80s with ambulation.
Daughter reports onset of symptoms for about 1 week. She complains of midsternal pain that is radiating to her abdomen. She denies any known association. She reportedly had a possible diarrheal episode about 2 days ago which resolved. She takes
laxative regularly. There was no melena or hematochezia. She denies any vomiting. She reports mild nausea. Daughter states that she is short of breath all the time and does not have any new exertional chest pain. She does not have any lower
extremity edema. She has no cough or fevers or chills. There has been no diaphoresis. Cannot tell if she has any orthopnea or PND. Has been no recent changes in her medications. She has no recent travel. Has been no calf tenderness.
In the emergency department patient was hypertensive to 175/98, temperature was 97.9, pulse rate of 93 and oxygen saturation of 97% on 4 L. ECG shows a normal sinus rhythm at a rate of 93 with frequent atrial bigeminy, no acute ST or T wave
changes. Troponin is slightly elevated to 0.06. BNP is also elevated to 6050. She had a chest x-ray which shows bilateral pleural effusions as well as pulmonary interstitial edema and alveolar edema. CT of the abdomen and pelvis shows small to
moderate right and small left pleural effusions which is new since her prior CT scan. The abdomen showed colonic diverticulosis, no intestinal obstruction, perforation or enteritis. She has had a prior cholecystectomy and the imaging shows no
acute interval changes. The extrahepatic biliary tract again seen with mild prominence likely secondary to the prior cholecystectomy.
COVID test was negative, flu test was negative. UA was negative. CBC was unremarkable and similar to prior. Labs notable for a potassium of 3.0 otherwise she has normal BUN and creatinine with a normal glucose.
Medical History
Past Medical History
Past Medical History: Reports Other
Additional Past Medical History:
essential hypertension
hyperlipidemia
Grave's Disease
CAD
DM
anxiety/depression
Past Surgical History: Reports Other
Additional Past Surgical History:
hip replacement
cholecystectomy
Appendectomy
cardiac cath with PCI
Colonoscopy 03/2016
Left shoulder Steroid injection 12/31/2021
Left eye surgery 07/2022
L1 and L4 kyphoplasty 12/24/2022
Left Cephalomedullary Nail Fixation Intertrochanteric Femur Fx- Dr Fernando Santana/ 06/09/2024
ORIF Left distal radius/ ulna fracture- Dr Fernando Santana/ 06/11/2024
Social History
Tobacco: Former Smoker (quit 20 years ago)
Alcohol: None
Drug: None
Living: Alone
Employment: Retired
Family History
Family History: Other (Mother: CAD, SD, CVA; Father: GI cancer; Brother: Colon cancer, kidney cancer and lung cancer )
Allergies / Home Medications
Allergies reflects when Allergies were last updated in [facility].
Home Medications with original date entered in [facility]
Allergy/Medication List:
Allergies
Allergy/AdvReac Type Severity Reaction Status Date / Time
No Known Allergies Allergy Verified 12/14/24 11:02
Home Medications
metoprolol tartrate 50 mg tablet 50 mg PO DAILY Blood pressure 06/17/21
alendronate 70 mg tablet (Fosamax) 70 mg PO WE osteoporosis 06/09/24
calcium carbonate (Calcium 600) 600 mg PO DAILY supplement 06/09/24
cholecalciferol (vitamin D3) 50 mcg (2,000 unit) tablet (Vitamin D3) 50 mcg PO DAILY supplement 06/09/24
sertraline 50 mg tablet 50 mg PO DAILY depression/anxiety 06/09/24
therapeutic multivitamin 1 tab PO DAILY supplement 06/09/24
vitamins A,C,I-bhmq-uecorp 4,296 mcg-226 mg-90 mg capsule 1 cap PO BID supplement 06/09/24
cyanocobalamin (vitamin B-12) 1,000 mcg tablet 1,000 mcg PO DAILY #30 tabs 06/16/24
docusate sodium 100 mg capsule 100 mg PO BID #60 caps 06/16/24
acetaminophen 500 mg tablet (Tylenol Extra Strength) 1,000 mg PO BID 12/14/24
aspirin 81 mg tablet,delayed release 81 mg PO DAILY Blood clot prevention/tx 12/14/24
atorvastatin 10 mg tablet (Lipitor) 10 mg PO HS 12/14/24
ferrous sulfate 325 mg (65 mg iron) tablet 325 mg PO Q48H 12/14/24
furosemide 20 mg tablet 20 mg PO DAILYPRN PRN Weight gain 12/14/24
levothyroxine 125 mcg tablet (Synthroid) 125 mcg PO HS 12/14/24
Review of Systems
-
History Source: Patient
Constitutional: Reports No Symptoms
EENT: Reports No Symptoms
Respiratory: Reports Trouble Breathing (mild shortness of breath )
Cardiac: Reports Chest Pain
Abdomen/GI: Reports Abdominal Pain and Nausea
: Reports No Symptoms
Musculoskeletal: Reports No Symptoms
Skin: Reports No Symptoms
Neurological: Reports No Symptoms
Endocrine: Reports No Symptoms
Hematologic/Lymphatic: Reports No Symptoms
Psych: Reports No Symptoms
Physical Exam
Vital Signs
Vital Signs
Temp Pulse Resp BP Pulse Ox
97.9 F 93 16 175/98 97
08/15/25 11:04 08/15/25 16:45 08/15/25 13:45 08/15/25 16:00 08/15/25 16:45
Physical Exam
General: Well Developed, Well Nourished, No Apparent Distress and Conversant
HEENT: NormoCephalic, Moist mucous membranes, Atraumatic, [place]geon Conjunctivae, Nose Appears Normal, Ears Appear Normal, Hearing Impaired (severe hearing impairment) and Oxygen
Respiratory: Clear, Crackles and Decreased Breath Sounds
Cardiac: S1/S2 and Regular Rhythm; No Murmur, Rub or Gallop
Breast: Deferred by me
GI: Soft, Non Tender, Non Distended and Normal Bowel Sounds; No Organomegaly
Rectal: Deferred by Provider
Genito-urinary: Deferred by me
Musculoskeletal: No Clubbing, No Cyanosis and No Edema
Skin: IV/Catheter Site
Neuro: Awake, Alert, AO x 3 and Nonfocal/grossly intact
Psych: Calm
Laboratory Results
-
08/15/25 11:58
08/15/25 11:58
Laboratory Results
Lactic Acid Cancelled 08/15/25 15:45
Total Bilirubin 0.9 mg/dl (0.2-1.3) 08/15/25 11:58
AST 24 U/L (14-36) 08/15/25 11:58
ALT 15 U/L (0-35) 08/15/25 11:58
Alkaline Phosphatase 110 U/L (38-126) 08/15/25 11:58
Troponin I 0.059 ng/ml H* 08/15/25 16:32
Lipase 63 U/L (23-300) 08/15/25 11:58
Data Reviewed
-
Diagnostic Radiology: Image Personally Visualized and interpreted and Report Reviewed by me
CT Scan: Report Reviewed by me
Medical Tests (Nuc Med, Echo, EKG etc): Image Personally Visualized and interpreted
Lab Data: Labs Reviewed by me
Old Records: Reviewed
Impression/Plan
-
IMPRESSION:
84-year-old female with a past medical history significant for hypertension, hyperlipidemia, Graves' disease and now hypothyroidism, presents to the emergency department with abdominal discomfort and is found to have congestive heart failure based
on findings stated in the HPI.
PLAN:
Congestive heart failure�patient is hypoxic to 80% with ambulation, has pleural effusions bilaterally, pulmonary interstitial edema, hypertension. BNP is elevated to over 6000. She does have an elevated troponin to 0.05, she has a prior
echocardiogram in December that showed a preserved EF of 64% with dilated RV mild aortic sclerosis and mild MR. Suspect new onset CHF with preserved EF likely secondary to hypertension but cannot rule out an ischemic etiology. She denies any acute
weight gain. No LE edema on exam. Still has increased WOB.
-Admitted to telemetry
-Decompressive therapy with IV Lasix, 40 mg IV twice daily
-Monitor daily weights and ins and outs
-Keep K and mag greater than 4 ,2 respectively
- Check TSH, echo in a.m.
-Cardiology consultation
Elevated troponin/CP -suspected secondary to the current CHF exacerbation and possibly hypoxic episodes as well. History of CAD with remote stenting over 10 years ago. Complains of abdominal pain that is slightly worse with exertion on and
sometimes midsternal to epigastric. Will have ischemic component to her CHF exacerbation. She has no chest pain now, ECG is nonischemic.
-Will give aspirin for now
-Trend troponin
-Continue metoprolol succinate
-Continue atorvastatin
-Cardiology consultation
Hypothyroidism -patient currently on levothyroxine 175 mcg's daily.
-Checking TSH as above, continue levothyroxine for now
Hypertension
-Continue the metoprolol, amlodipine and Lasix for now
-Additional GDMT if she maintains good blood pressure including ARB as tolerated and consideration for SGLT2
Type 2 diabetes-currently not on any specific medication
- Check A1c, continue to monitor
DVT prophylaxis�Lovenox subcu
CODE STATUS-DNR
[2025-08-15] MEDS: LASIX 40 MG IV (20:27)
[2025-08-15] MEDS: KCL 270 MEQ IV (20:59)
--- NOTE | 2025-08-15 21:45 | PTCARENOTE ---
Pt arrivied to room 416-01. Pt transferred from stretcher to bed. Pt AAOx3, VSS, pt on 4L NC. Pt oriented to room, call san placed within reach. Bed alarm in place.
[2025-08-15] MEDS: NORVASC 2.5 MG PO (23:00)
[2025-08-15 23:01] LABS: Troponin I 0.061 ng/ml
[2025-08-15] MEDS: LIPITOR 20 MG PO (23:01)
[2025-08-16 04:06] VITALS: BP 155/96
[2025-08-16] MEDS: TYLENOL 650 MG PO (04:25)
[2025-08-16] MEDS: SYNTHROID 137 MCG PO (04:26)
[2025-08-16 05:11] LABS: Troponin I 0.065 ng/ml
[2025-08-16 05:24] LABS: Blood Urea Nitrogen 7 mg/dl (7-17); Calcium 9.2 mg/dl (8.4-10.2); Carbon Dioxide 25 mmol/L (22-30); Chloride 106 mmol/L (98-107); Estimated Creatinine Clearance 46 ml/min; Glucose 79 mg/dl (70-99); Potassium 4.3 mmol/L (3.5-5.1); Sodium 140 mmol/L (135-145); eGFR > 60.00
[2025-08-16 05:40] LABS: HDL Cholesterol 69 mg/dl; LDL Cholesterol, Calculated 157 mg/dl; Magnesium 1.8 mg/dl (1.6-2.3); Very Low Density Lipoprotein 28 mg/dl (0-30)
[2025-08-16 06:00] VITALS: BMI 22.0
[2025-08-16 07:10] VITALS: BP 136/88
[2025-08-16 07:57] LABS: Lipase 63 U/L (23-300)
--- NOTE | 2025-08-16 08:53 | W.PN.HOSP.TC ---
Today's Communication/Plan
-
see PN
Assessment / Plan
Assessment / Plan
84yo F with PMHX R VERO, cholecystectomy, CAD s/p PCI, anxiety d/o, CEA, DM controlled on diet, osteoporosis, HTN, graves disease, HLD, HFpEF came with progressive pain, started in epigastric area, lasting mintes, later radiated to the abd with
severe pain, found CHF exacerbation. Abd pain resolved on diuresis and CT abd unremarkable for acute findings
A/P:
#Acute respoiratory insuffciecny 2/2 Acute on chronic HFpEF exacerbation
#Troponin elevation
#Essential HTN
#Small bilateral pleural effusions
#Pulmonary edema
LAsix, Echo, daily weights, follow Cr and electrolytes
Cardio consult
cont ASA, statin, BB
check lipids, HgbA1c, TSH
follow serial troponin - minimal elevation since admission, most likely 2/2 CHF, rather then ACS
EKG with sinus arrhythmia 2/2 PVCs, isolated TWI in lead I, II, not seen before - cont serial EKG
telemetry
wean off O2
#Abdominal pain
resolved, abd non-tender, LFT WNL
Most liekly 2/2 CHF
DM type 2 with circulatory complications
Accuchecks, Insulin SS, check HgbA1c, DM diet
#hypokalemia
repleted
#Mild anemia
outpatient w/u with PCP
#HLD
#Hypothyroidism
#Anxiety d/o
#Chronic constipation
cont hoem emds
Laxatives PRN
#Diverticulosis w/o diverticulitis
high fiber diet
#L4 vertebral compression fracture s/p vertebroplasty
# L1 vertebral compression fracture s/p vertebroplasty
#T12 vertebral compression fracture
DVT ppx lovenox
DNR/DNI
I have spent at least 51min reviewing chart, test results, communication with consultants and providing direct patient care
Anticipated Discharge: > 48 hours
Subjective/Interval History
-
Date of Service: August 16, 2025
Objective Data
-
Labs:
Laboratory Results
08/16/25
04:21
Sodium 140
Potassium 4.3 D
Chloride 106
Carbon Dioxide 25
BUN 7
Creatinine 0.7
Glucose 79
Calcium 9.2
Vital Signs:
Vital Signs
Temp Pulse Resp BP Pulse Ox
98.0 F 98 20 136/88 97
08/16/25 07:10 08/16/25 07:10 08/16/25 07:10 08/16/25 07:10 08/16/25 07:10
I&O
08/15/25 08/16/25 08/17/25
06:59 06:59 06:59
Intake Total 240 / 240
Output Total 1150 / 1150
Balance -910 / -910
Review of Systems
-
All other systems: Reviewed and negative
Constitutional: Reports No Symptoms
Physical Exam
-
General: No Apparent Distress
HEENT: Normocephalic
Respiratory: Crackles
GI: Soft, Nontender and Nondistended
Skin: Warm
Neuro: Awake, Alert, Oriented and AO x 3
Psych: Calm
[2025-08-16 10:05] LABS: Troponin I 0.051 ng/ml
[2025-08-16] MEDS: ASPIR LOW (ENTERIC COATED) 81 MG PO (10:53)
[2025-08-16] MEDS: NORVASC 2.5 MG PO (10:54)
[2025-08-16] MEDS: LASIX 40 MG IV ×2 (10:54→17:25)
[2025-08-16] MEDS: TOPROL XL 50 MG PO (10:55)
[2025-08-16] MEDS: ZOLOFT 50 MG PO (10:55)
[2025-08-16] MEDS: PROTONIX 40 MG PO (10:55)
[2025-08-16 11:05] VITALS: BP 143/74
--- NOTE | 2025-08-16 12:11 | CM ---
Patient seen bedside, initial assessment completed. Patient is a 84-year-old female who has a past medical history significant for hypertension, hyperlipidemia, hypothyroidism, oov-lkrdbiy-dlxmgukwb diabetes presenting to the emergency department
with complaints of abdominal pain.
Patient resides alone in a single story home, 1 step to enter. Patient is independent w/ cane and RW, also has a w/c. Independent w/ ADLs and personal care. Patient has two supportive daughters, one who lives down the street from her. Patient was at
a SNF in [place], believes to be [facility] ([facility]], almost 2 years ago. No HC hx reported.
Address, points of contact and insurance verified
PCP: Caryl Finney
Pharmacy: [facility]
Plan: Home, will offer HC at d/c
[2025-08-16] MEDS: STERILE WATER FOR INJECTION 10 ML IV (14:03)
[2025-08-16] MEDS: ROCEPHIN 1000 MG IV (14:03)
[2025-08-16 14:31] VITALS: BMI 22.0
--- NOTE | 2025-08-16 14:48 | CON.CAR ---
Addendum entered and electronically signed by Aamir Coronel MD 08/16/25 16:59:
I reviewed and agree with the note by MARIBEL and it accurately reflects our care.
I saw and evaluated the patient, and I provided the substantive portion of the medical decision making. My assessment and plan is below:
84-year-old female with history of coronary artery disease with remote stenting and HFpEF who presents with abdominal pain. Cardiology is consulted due to concern for CHF exacerbation. Patient is hard of hearing which makes getting history
difficult but it sounds like she started feeling unwell on Wednesday with a cough and congestion. Developed abdominal pain today so came to the ER. Chest x-ray showed pulmonary edema and proBNP was elevated so she was given IV diuresis. She is also
being treated for UTI. As of now her abdominal pain has resolved. Breathing feels at her baseline but she is on 4 L nasal cannula supplemental O2.
Physical exam: RRR, no murmurs/rubs/gallops, crackles at the right lung base up to the mid urena, no lower extremity edema
TTE 08/16/2025: LVEF 60-65%, mild/mod MR, mild TR, normal PASP, right pleural effusion
Acute on chronic HFpEF: Continue twice daily IV Lasix. Wean O2 as tolerated. No SGLT2 inhibitor given ongoing UTI. Start spironolactone 12.5 mg daily.
Original Note:
Consultation
Consultation Request
Date/Time Consultation Requested: 08/16/25 1424
Date/Time Consultation Performed: 08/16/25 1500
Requesting Provider: Dr. Gr
Performing Provider: Sophy LÓPEZ for Dr. Coronel
Reason for Consultation: CHF
Medical History
-
Chief Complaint: abdominal pain
History of Present Illness:
84 y/o female (previously Dr. Solano advice line rn- he left now someone in same practice with [facility]- doesn't recall name). She is [facility], but we were able to communicate effectively. She has a history of CAD with remote SHIRLEY to
RCA, hypertension, dyslipidemia, DM2, hx HFpEF requiring lasix in past after fluid administration, and former smoker. She reports to me that she is here for abdominal pain and shows me that it was located in her epigastric region to her lower
abdomen. She noted it since Wednesday, and it was pretty constant. As a result she could not eat. There was some bloating, she thinks. She sometimes gets SOB. CXR and BNP suggestive CHF. She is admitted for adgxw-ei-wzcecyj HFpEF and is being treated
with antibiotics. She is on O2 by UT. She also has a UTI and is being treated with antibiotics.
Past Medical History
Past Medical History: CAD, CHF, HTN, Hypercholesterolemia and NIDDM
Social History
Tobacco: Former Smoker
Family History
Family History: Reviewed & Not Pertinent
Allergies / Home Medications
Allergy/AdvReac Type Severity Reaction Status Date / Time
No Known Allergies Allergy Verified 08/15/25 11:03
�Medication �Instructions �Recorded �Confirmed �Type
alendronate 70 mg tablet (Fosamax) 70 mg PO WE osteoporosis 06/09/24 08/15/25 History
calcium carbonate (Calcium 600) 600 mg PO DAILY supplement 06/09/24 08/15/25 History
cholecalciferol (vitamin D3) 50 50 mcg PO DAILY supplement 06/09/24 08/15/25 History
mcg (2,000 unit) tablet (Vitamin
D3)
sertraline 50 mg tablet 50 mg PO DAILY depression/anxiety 06/09/24 08/15/25 History
therapeutic multivitamin 1 tab PO DAILY supplement 06/09/24 08/15/25 History
vitamins A,C,X-eypz-dfhoep 4,296 1 cap PO BID supplement 06/09/24 08/15/25 History
mcg-226 mg-90 mg capsule
aspirin 81 mg tablet,delayed 81 mg PO DAILY Blood clot 12/14/24 08/15/25 History
release prevention/tx
ferrous sulfate 325 mg (65 mg 325 mg PO Q48H Supplement 12/14/24 08/15/25 History
iron) tablet
furosemide 20 mg tablet 20 mg PO DAILYPRN PRN Weight gain 12/14/24 08/15/25 History
amlodipine 2.5 mg tablet 2.5 mg PO BID Blood Pressure 08/15/25 08/15/25 History
atorvastatin 20 mg tablet (Lipitor) 20 mg PO HS High Cholesterol 08/15/25 08/15/25 History
cyanocobalamin (vitamin B-12) 1,000 mcg PO DAILY Supplement 08/15/25 08/15/25 History
1,000 mcg tablet
docusate sodium 100 mg capsule 100 mg PO BID Constipation 08/15/25 08/15/25 History
levothyroxine 175 mcg tablet 137 mcg PO DAILY Thyroid 08/15/25 08/15/25 History
(Synthroid)
metoprolol succinate 50 mg 50 mg PO DAILY Heart 08/15/25 08/15/25 History
tablet,extended release 24 hr Disease/Condition
pantoprazole 40 mg tablet,delayed 40 mg PO DAILY gerd 08/15/25 08/15/25 History
release
Review of Systems
-
History Source: Patient
All other systems: Negative unless noted
Respiratory: Trouble Breathing
Abdomen/GI: Abdominal Pain and Other (not eating)
Physical Exam
Vital Signs
Temp Pulse Resp BP Pulse Ox
98 F 98 20 143/74 99
08/16/25 11:05 08/16/25 11:05 08/16/25 11:05 08/16/25 11:05 08/16/25 11:05
Lab Results
08/15/25 11:58
08/16/25 04:21
Troponin I 0.051 ng/ml H* 08/16/25 09:25
Dds-I-Hxmhytpiecm Pept 6050 pg/ml 08/15/25 16:32
Physical Exam
General: Well Developed and No Apparent Distress
HEENT: Normocephalic and Anicteric
Respiratory: Clear, Non Labored Respirations and Other (on O2 by NC)
Cardiac: Regular Rhythm
Skin: Warm and Dry
Neuro: Awake and Alert
Psych: Calm
Impression / Plan
-
Sjvmp-om-dhdkiaa HFpEF:
-Echo 08/16/25: Normal biventricular size and systolic function without regional wall motion abnormality. LVEF 60-65%. Severe left atrial enlargement. Mild to moderate mitral regurgitation. Mild tricuspid regurgitation. PASP 34 mmHg. Right pleural
effusion. Compared to prior echocardiogram on 12/15/2024, mitral regurgitation has progressed slightly. There is a new right pleural effusion present.
-BNP 6050, CXR with evidence for pulmonary edema. Her weight is actually down from previous.
-agree with IV lasix, which requires intensive monitoring. She is listed as taking PRN lasix as OP, but she does not know about this and does not take it.
-will avoid SGLT2I at this time with active UTI
-wean O2 as tolerated per protocol
Abnormal troponin: as high as 0.065
-suspect acute, non-ischemic myocardial injury in setting of CHF exacerbation
-echo without RWMA
CAD with hx RCA stenting:
-cath 06/18/2021: Patent stents in the proximal right coronary artery and the proximal diagonal artery. Moderate disease including a 40-50% ostial circumflex lesion which is functionally a trifurcation lesion in combination with the first obtuse
marginal and a 40% lesion in the mid circumflex.
-continue ASA, statin, and BB
-EKG no acute change
UTI:
-on ABX
Abdominal pain:
-resolved
HTN:
-has been labile here- monitor
Data Reviewed
-
EKG: Tracing Personally Visualized and interpreted (SR with SA 90 BPM, PVC's)
Radiology: Report Reviewed by me (CXR: Radiographic findings compatible with interstitial pulmonary edema with small bilateral pleural effusions.)
Medical Tests (Nuc Med, Echo etc): Report Reviewed by me (Echo as noted)
Labs: Labs Reviewed by me
[2025-08-16 15:02] VITALS: BP 103/82
[2025-08-16] MEDS: LOVENOX 40 MG SC (17:26)
[2025-08-16 20:43] VITALS: BP 134/66
[2025-08-16] MEDS: LIPITOR 20 MG PO (21:36)
[2025-08-16 23:29] VITALS: BP 165/76
[2025-08-17 03:51] VITALS: BP 140/87
[2025-08-17 05:27] VITALS: BMI 21.3
[2025-08-17 05:47] LABS: Hematocrit 37.2 % (37.0-47.0); Hemoglobin 12.3 g/dL (12.0-16.0); Mean Corp Hgb Conc. 33.1 g/dL (33.0-37.0); Mean Corpuscular Volume 100.0 fL (81.0-99.0); Nucleated Red Blood Cells % 0 %; Platelet Count 195 10^3/uL (130-400); Red Cell Dist. Width 13.2 % (11.5-14.5)
[2025-08-17] MEDS: SYNTHROID 137 MCG PO (06:33)
[2025-08-17 07:30] LABS: ALT (SGPT) 14 U/L (0-35); AST (SGOT) 23 U/L (14-36); Albumin 4.4 g/dl (3.5-5.0); Alkaline Phosphatase 112 U/L (38-126); Blood Urea Nitrogen 9 mg/dl (7-17); Calcium 9.2 mg/dl (8.4-10.2); Carbon Dioxide 32 mmol/L (22-30); Chloride 101 mmol/L (98-107); Estimated Creatinine Clearance 35 ml/min; Glucose 101 mg/dl (70-99); Magnesium 1.6 mg/dl (1.6-2.3); Potassium 3.5 mmol/L (3.5-5.1); Sodium 141 mmol/L (135-145); Total Protein 6.9 g/dl (6.3-8.2); eGFR > 60.00
[2025-08-17 08:17] VITALS: BP 148/84
[2025-08-17] MEDS: MAGNESIUM SULFATE 50 IV (08:31)
[2025-08-17] MEDS: LASIX 40 MG IV (08:32)
[2025-08-17] MEDS: ASPIR LOW (ENTERIC COATED) 81 MG PO (08:32)
[2025-08-17] MEDS: PROTONIX 40 MG PO (08:33)
[2025-08-17] MEDS: TOPROL XL 50 MG PO (08:33)
[2025-08-17] MEDS: ZOLOFT 50 MG PO (08:34)
--- NOTE | 2025-08-17 08:40 | W.PN.CD ---
Addendum entered and electronically signed by Aamir Coronel MD 08/17/25 11:06:
I reviewed and agree with the note by MARIBEL and it accurately reflects our care.
I saw and evaluated the patient, and I provided the substantive portion of the medical decision making. My assessment and plan is below:
84-year-old female with history of coronary artery disease with remote stenting and HFpEF who presents with CHF exacerbation. She has undergone diuresis with IV Lasix and feels improved. Abdominal pain is gone which was her presenting complaint.
She denies shortness of breath, palpitations, chest pain, orthopnea, and lower extremity edema. Weight today is 116 pounds which is lowest recorded at our facility.
Physical exam: RRR, no murmurs/rubs/gallops, clear lungs, no lower extremity edema
HFpEF: Switch Lasix to p.o. She seems stable for discharge from cardiovascular standpoint. Continue spironolactone 12.5 mg daily (started this admission). On discharge, would recommend p.o. Lasix 20 mg on MWF.
Hypertension: Amlodipine stopped given addition of spironolactone. Continue metoprolol 50 mg daily.
Original Note:
Today's Communication / Plan
-
HFpEF improved, switch to PO Lasix 20mg daily at d/c.
continue Aldactone 12.5mg daily, will need outpatient BMP in 1 week.
Impression / Plan
-
Zocjv-qz-mwwbwyd HFpEF:
-feels much improved today and denies SOB
-weight is down 4 lbs overnight, down to 116 lbs
-switch to PO Lasix 20mg daily with daily weights at home
-Echo 08/16/25: Normal biventricular size and systolic function without regional wall motion abnormality. LVEF 60-65%. Severe left atrial enlargement. Mild to moderate mitral regurgitation. Mild tricuspid regurgitation. PASP 34 mmHg. Right pleural
effusion. Compared to prior echocardiogram on 12/15/2024, mitral regurgitation has progressed slightly. There is a new right pleural effusion present.
-BNP 6050, CXR with evidence for pulmonary edema. Her weight is actually down from previous.
-She is listed as taking PRN lasix as OP, but she does not know about this and does not take it.
-will avoid SGLT2I at this time with active UTI
-wean O2 as tolerated per protocol
Abnormal troponin: as high as 0.065
-suspect acute, non-ischemic myocardial injury in setting of CHF exacerbation
-echo without RWMA
CAD with hx RCA stenting:
-cath 06/18/2021: Patent stents in the proximal right coronary artery and the proximal diagonal artery. Moderate disease including a 40-50% ostial circumflex lesion which is functionally a trifurcation lesion in combination with the first obtuse
marginal and a 40% lesion in the mid circumflex.
-continue ASA, statin, and BB
-EKG no acute change
UTI:
-on ABX
Abdominal pain:
-resolved
HTN:
-stable, monitor
Physical Exam
Vital Signs/Labs
Vital Signs
Temp Pulse Resp BP Pulse Ox
97.9 F 90 20 148/84 97
08/17/25 08:17 08/17/25 08:17 08/17/25 08:17 08/17/25 08:17 08/17/25 08:17
08/16/25 08/17/25 08/18/25
06:59 06:59 06:59
Actual Weight 120 lb 1.6 oz 116 lb 4 oz
08/17/25 05:12
08/17/25 06:47
Magnesium 1.6 mg/dl (1.6-2.3) 08/17/25 06:47
Triglycerides 142 mg/dl (10-149) 08/16/25 04:21
LDL Cholesterol, Calc 157 mg/dl 08/16/25 04:21
VLDL Cholesterol, Calc 28 mg/dl (0-30) 08/16/25 04:21
HDL Cholesterol 69 mg/dl 08/16/25 04:21
Free T4 1.02 ng/dl (0.78-2.19) 08/16/25 04:21
08/15/25
16:32
Yvf-R-Cmbduidxqbn Pept 6050
LAB Results
08/15/25 08/15/25 08/16/25
16:32 22:24 04:21
Troponin I 0.059 H* 0.061 H* 0.065 H*
08/16/25
09:25
Troponin I 0.051 H*
Physical Exam
Constitutional: No acute distress
EENT: Anicteric and Other (hard of hearing, wearing hearing aides)
Cardiovascular: Rhythm & rate is regular (PVCs, bigeminy)
Respiratory: Respiratory effort normal and Lungs clear to auscul.
GI: Soft, Non tender and Normal bowel sounds
Neuro/Psych: AO x 3
Other: Skin (warm, dry)
Data Reviewed
-
Date of Service: August 17, 2025
Medical Decision Making: Reviewed Test Results
EKG: Tracing Personally Visualized and interpreted
Echo: Report Reviewed by me
Labs: Labs Reviewed by me
[2025-08-17] MEDS: ALDACTONE 12.5 MG PO (09:31)
--- NOTE | 2025-08-17 10:59 | W.PN.HOSP.TC ---
Today's Communication/Plan
-
dc
Assessment / Plan
Assessment / Plan
84yo F with PMHX R VERO, cholecystectomy, CAD s/p PCI, anxiety d/o, CEA, DM controlled on diet, osteoporosis, HTN, graves disease, HLD, HFpEF came with progressive pain, started in epigastric area, lasting mintes, later radiated to the abd with
severe pain, found CHF exacerbation. Abd pain resolved on diuresis and CT abd unremarkable for acute findings. Weaned off O2 and improved.Echo: EF 60-65, severe LA enlargement with mild progression of TR.Cardio consult: switch to Lasix 20mg MOWEFR,
Aldactone 12.5 daily, stop Amlodipine and BMP in 2 week upon d/c. PT/OT recommended d/c home
A/P:
#Acute respiratory insufficiency 2/2 Acute on chronic HFpEF exacerbation
#Troponin elevation
#Essential HTN
#Small bilateral pleural effusions
#Pulmonary edema
LAsix, daily weights, follow Cr and electrolytes
Echo: EF 60-65, severe LA enlargement with mild progression of TR
Cardio consult: switch to Lasix 20mg MOWEFRI, Aldactone 12.5 daily and BMP in 1 week upon d/c
cont ASA, statin, BB
check lipids, HgbA1c, TSH
follow serial troponin - minimal elevation since admission, most likely 2/2 CHF, rather then ACS
EKG with sinus arrhythmia 2/2 PVCs, isolated TWI in lead I, II, not seen before - cont serial EKG
telemetry
weaned off O2 as of 08/17/25
LDL 157 - increase lipitor
#Abdominal pain
#UTI
resolved, abd non-tender, LFT WNL
Most likely 2/2 CHF vs UTI
reasonable to treat UTI: pansensitive E.COli
DM type 2 with circulatory complications
Accuchecks, Insulin SS, check HgbA1c, DM diet
#hypokalemia
repleted
#Mild anemia
outpatient w/u with PCP
#HLD
#Hypothyroidism
#Anxiety d/o
#Chronic constipation
cont hoem emds
Laxatives PRN
#Diverticulosis w/o diverticulitis
high fiber diet
#L4 vertebral compression fracture s/p vertebroplasty
# L1 vertebral compression fracture s/p vertebroplasty
#T12 vertebral compression fracture
2/2 ostoporosis
no significant pain
#PReDM
low carb diet
#Hypothyroidism
TSH 4.88 - cont same regimen
DVT ppx lovenox
DNR/DNI
I have spent at least 51min reviewing chart, test results, communication with consultants, daughter over the phone and providing direct patient care
Anticipated Discharge: Today
Subjective/Interval History
-
Date of Service: August 17, 2025
Objective Data
-
Labs:
Laboratory Results
08/17/25 08/17/25
05:12 06:47
WBC 7.3
Hgb 12.3
Hct 37.2
Plt Count 195
Sodium Cancelled 141
Potassium Cancelled 3.5
Chloride Cancelled 101
Carbon Dioxide Cancelled 32 H
BUN Cancelled 9
Creatinine Cancelled 0.9
Glucose Cancelled 101 H
Calcium Cancelled 9.2
Total Bilirubin Cancelled 0.6
AST Cancelled 23
ALT Cancelled 14
Alkaline Phosphatase Cancelled 112
Vital Signs:
Vital Signs
Temp Pulse Resp BP Pulse Ox
97.9 F 90 20 148/84 97
08/17/25 08:17 08/17/25 09:31 08/17/25 08:17 08/17/25 09:31 08/17/25 08:17
I&O
08/16/25 08/17/25 08/18/25
06:59 06:59 06:59
Intake Total 240 / 240 800 / 800
Output Total 1150 / 1150 700 / 700
Balance -910 / -910 100 / 100
Review of Systems
-
History Source: Patient
All other systems: Reviewed and negative
Physical Exam
-
General: No Apparent Distress
HEENT: Hearing Impaired
Respiratory: Clear to Auscultation
Cardiac: Regular Rhythm
GI: Soft, Nontender and Nondistended
Musculoskeletal: No Clubbing, No Cyanosis and No Edema
Neuro: Awake, Alert, Oriented and AO x 3
Psych: Calm
[2025-08-17 11:20] VITALS: BP 121/71
--- NOTE | 2025-08-17 12:06 | CM ---
Addendum entered by Maggie Dubon 08/17/25 13:16:
[facility], TT to liaison. Daughter will provide transport home.
Plan; home with referral to [facility]
Addendum entered by Maggie Dubon 08/17/25 13:15:
Patient for d.c today.
CM spoke with patients daughter, Emi, discussed therapy recommendations of [facility]- daughter agreeable and would like D
Original Note:
CM reviewed chart, patient seen bedside.
CM offered [facility] to patient, declining, reports she has supportive family/neighbors who check in on her regularly.
IMM verbally reviewed, provided with copy, placed in chart.
Patient confirms transport home from daughter when stable.
CM will continue to follow.
Plan; home no needs
[2025-08-17 12:30] VITALS: BP 145/76; PULSE 85; O2SAT 94
[2025-08-17 12:31] VITALS: BP 145/76; PULSE 85; O2SAT 93
--- NOTE | 2025-08-17 12:49 | W.DCSUMMARY ---
Discharge Summary
Discharge Data
Date of Admission: 08/15/25
Date of Discharge: 08/17/25
-
Pending Results: No
Hospital Course
84yo F with PMHX R VERO, cholecystectomy, CAD s/p PCI, anxiety d/o, CEA, DM controlled on diet, osteoporosis, HTN, graves disease, HLD, HFpEF came with progressive pain, started in epigastric area, lasting mintes, later radiated to the abd with
severe pain, found CHF exacerbation. Abd pain resolved on diuresis and CT abd unremarkable for acute findings. Weaned off O2 and improved.Echo: EF 60-65, severe LA enlargement with mild progression of TR.Cardio consult: switch to Lasix 20mg MOWEFR,
Aldactone 12.5 daily, stop Amlodipine and BMP in 2 week upon d/c. PT/OT recommended d/c home
I have spent at least 51min reviewing chart, test results, communication with consultants, daughter over the phone and providing direct patient care
A/P:
#Acute respiratory insufficiency 2/2 Acute on chronic HFpEF exacerbation
#Troponin elevation
#Essential HTN
#Small bilateral pleural effusions
#Pulmonary edema
#Abdominal pain
#UTI
#DM type 2 with circulatory complications
#hypokalemia
#Mild anemia
#HLD
#Hypothyroidism
#Anxiety d/o
#Chronic constipation
#Diverticulosis w/o diverticulitis
#L4 vertebral compression fracture s/p vertebroplasty
#L1 vertebral compression fracture s/p vertebroplasty
#T12 vertebral compression fracture
#PReDM
#Hypothyroidism
Discharge Plan
-
Patient Disposition: Home with Home Care
Discharge Diagnosis/Procedures: CHF exacerbation
Diet: Low Sodium
Activity: As tolerated
Driving Restrictions: As prior to admission
Blood Work: BMP in 1 week and 3 weeks, script sent to [facility] already
Other Services: PT
Instructions: *PCP/Other Clinical Research Spec Heart Failure Instructions
Referrals:
Guillermo Merritt CRNP [Family Provider, [facility]]
Prescriptions:
New
spironolactone 25 mg Tablet
12.5 mg PO DAILY Qty: 30 0RF
furosemide 20 mg Tablet
20 mg PO MOWEFR Qty: 30 0RF
cefdinir 300 mg capsule
300 mg PO BID Qty: 8 0RF
Continued
alendronate [Fosamax] 70 mg Tablet
70 mg PO WE
therapeutic multivitamin Tablet
1 tab PO DAILY
calcium carbonate [Calcium 600] 600 mg calcium (1,500 mg) Tablet
600 mg PO DAILY
sertraline 50 mg Tablet
50 mg PO DAILY
vitamins A,C,X-txeo-jsinfu 4,296 mcg-226 mg-90 mg Capsule
1 cap PO BID
cholecalciferol (vitamin D3) [Vitamin D3] 50 mcg (2,000 unit) Tablet
50 mcg PO DAILY
aspirin 81 MG tablet,delayed release (DR/EC)
81 mg PO DAILY
ferrous sulfate 325 mg (65 mg iron) tablet
325 mg PO Q48H
levothyroxine [Synthroid] 175 mcg Tablet
137 mcg PO DAILY
metoprolol succinate 50 mg tablet extended release 24 hr
50 mg PO DAILY
cyanocobalamin (vitamin B-12) 1,000 mcg tablet
1,000 mcg PO DAILY
pantoprazole 40 mg tablet,delayed release (DR/EC)
40 mg PO DAILY
docusate sodium 100 mg capsule
100 mg PO BID
Changed
atorvastatin [Lipitor] 20 mg Tablet
40 mg PO HS Qty: 0 0RF
Discontinued
furosemide 20 mg tablet
20 mg PO DAILYPRN PRN (Reason: Weight gain)
Rx Instructions:
PRN weight gain of 3 lbs in a day or 5 lbs in 5 days
amlodipine 2.5 mg tablet
2.5 mg PO BID
Discharge Orders:
Discharge Patient (As Directed); Ordered 08/17/25
Ordered By: Caden Gr
Discharge Date and Time
Print Language: ISRAELI
[2025-08-17 12:53] LABS: Folate 6.5 ng/ml (2.76-20); Vitamin B12 > 1000 pg/ml (239-931)
[2025-08-17] MEDS: STERILE WATER FOR INJECTION 10 ML IV (13:32)
[2025-08-17] MEDS: ROCEPHIN 1000 MG IV (13:32)
--- NOTE | 2025-08-17 15:40 | VNURNOTE ---
Home Health Liaison met with patient at bedside. Explained services. She was very hesitant, didn't feel she needed us. She requested this author to speak with daughter Emi. Called daughter Emi and discussed [facility] nurse/therapy, visits,
schedule and homebound status. She is agreeable and understands that visits at home will be 2-3 x per week to assess and teach medical management. Daughter will speak with pt about services, she has had [facility] in the past per daughter. daughter is
aware that [facility] will contact them for start of care within a few days after discharge from . Provided contact number for [facility].
PM [facility] referral completed in [facility].
[2025-08-17 15:48] VITALS: BP 110/63
== END 2025-08-17 17:15 | disposition home health service (06) | DRG 291 ==
LOC: 4 WEST ACU 19:51
PROVIDERS: Physician Assistant; ADMITTING PHYSICIAN Internal Medicine; ATTENDING PHYSICIAN Internal Medicine; CONSULT PHYSICIAN Student in an Organized Health Care Education/Training Program; EMERGENCY PHYSICIAN Emergency Medicine; FAMILY PHYSICIAN Nurse Practitioner Family
DX: I11.0 Hypertensive heart disease with heart failure (principal); I50.33 Acute on chronic diastolic (congestive) heart failure; N39.0 Urinary tract infection, site not specified; M48.54XA Collapsed vertebra, not elsewhere classified, thoracic region, initial encounter for fracture; E87.6 Hypokalemia; D64.9 Anemia, unspecified; E78.00 Pure hypercholesterolemia, unspecified; E03.9 Hypothyroidism, unspecified; F41.9 Anxiety disorder, unspecified; K59.09 Other constipation; K57.30 Diverticulosis of large intestine without perforation or abscess without bleeding; Z79.890 Hormone replacement therapy; Z79.83 Long term (current) use of bisphosphonates; R09.02 Hypoxemia; E05.00 Thyrotoxicosis with diffuse goiter without thyrotoxic crisis or storm; I25.10 Atherosclerotic heart disease of native coronary artery without angina pectoris; Z79.899 Other long term (current) drug therapy; Z79.82 Long term (current) use of aspirin; Z66 Do not resuscitate; Z80.0 Family history of malignant neoplasm of digestive organs; Z80.1 Family history of malignant neoplasm of trachea, bronchus and lung; Z80.51 Family history of malignant neoplasm of kidney; M81.0 Age-related osteoporosis without current pathological fracture; E11.59 Type 2 diabetes mellitus with other circulatory complications; F32.A Depression, unspecified; H91.90 Unspecified hearing loss, unspecified ear; Z82.3 Family history of stroke; Z82.49 Family history of ischemic heart disease and other diseases of the circulatory system; Z87.891 Personal history of nicotine dependence; Z90.49 Acquired absence of other specified parts of digestive tract; Z95.5 Presence of coronary angioplasty implant and graft; Z96.641 Presence of right artificial hip joint; Z11.52 Encounter for screening for COVID-19
CPT/HCPCS: 71046; 74177; 80048; 80053; 80061; 81003; 81015; 82607; 82746; 83605; 83690; 83735; 83880; 84439; 84443; 84484; 85025; 87086; 87088; 87186; 87502; 87811; 93005; 93308; 93321; 93325; 96360; 97163; 97166; 99285; Q9967

== ENCOUNTER 2025-09-25 12:28 | Emergency (ER) | payer OTHER, SELFPAY ==
[2025-09-25 12:33] VITALS: BP 178/74
[2025-09-25 12:37] VITALS: BP 178/74
[2025-09-25 12:44] VITALS: BMI 21.9
[2025-09-25 13:00] VITALS: BP 151/108
--- NOTE | 2025-09-25 13:09 | ED.GENMED ---
History of Present Illness
General
Chief Complaint: Chest Pain
Time Seen by Provider: 09/25/25 12:38
History of Present Illness
History of Present Illness:
84-year-old female with history of CAD status post stenting, anxiety, diabetes, hypertension, CHF presenting to the emergency department for episode of chest discomfort. Patient was at her doctor's office, and while walking up to the doctor's
office, started to have episode of chest pain and shortness of breath. The doctor subsequently called the ambulance to come to the hospital. 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
several months. Patient recently admitted to the hospital from 08/15 to 08/17 for CHF. Found to have an echo at that time which showed EF 60 to 65% with left atrial enlargement and progressive TR. Patient notes that her symptoms have since
alleviated. She notes that the pain felt similar to prior episodes. Denies any fever. Pain or GI complaints. Denies additional acute medical complaints. Patient is on aspirin
Past History
Past History
ED Past Medical History: CAD, HTN, Hypercholesterolemia, NIDDM, [place], Hypothyroidism and Other (Graves' disease)
ED Past Surgical History: Appendectomy, Cardiac (Cardiac stenting, carotid artery angioplasty), Cholecystectomy, Orthopedic (R total hip Replacement) and Tonsilectomy
Social History
Tobacco: Former smoker
Alcohol: Occasional
Drug: None
Personal:
Living: alone
Family History
Family History: Negative Diabetes, Hypertension, Early CAD, Asthma or Cancer
Phy Exam
Physical Exam
Physical Exam:
General: Well-appearing, no clinical signs of dehydration, nontoxic and in no acute distress
HEENT: protecting airway
Neck: appears supple
CV: Normal heart rate, regular rhythm
Resp: No accessory muscle use, no increased work of breathing, lungs clear to auscultation bilaterally
Abd: Soft and non-distended, no tenderness to palpation
Extremities: No deformities, no swelling
Neuro: alert, no focal neurologic deficit
: deferred
Rectal: deferred
Psych: Normal affect
Skin: Intact
Scores
Heart Score for Chest Pain Patients
STEMI patient?: No
History: Slightly or Non-Suspicious
ECG: Normal
Age: >/= 65 years
Risk Factors: 1 or 2 Risk Factors
Troponin: </= Normal Limit
Heart Score for Chest Pain Patients: 3
Heart Score Risk: 2.5% MACE over next 6 weeks
Course
Orders/Labs/Results
Orders:
Orders
09/25/25 12:34
EKG [Electrocardiogram (*1)] Urgent
Reason for Study: Chest Pain
EKG- Treatment ONCE
09/25/25 13:01
CR Chest - 2 Views Urgent
Comment:
Reason For Exam: chest pain
09/25/25 13:16
Complete Blood Count/With Diff Urgent
Comprehensive Metabolic Panel Urgent
NT-proBNP Urgent
Troponin I Urgent
09/25/25 13:52
Potassium Chloride [KCl] 40 meq PO NOW STA
09/25/25 13:59
EKG- Treatment ONCE
09/25/25 14:05
Potassium Chloride [KCl] 40 meq PO NOW STA
09/25/25 14:06
Potassium Chloride [KCl] 40 meq 0.9% Sodium Chloride 250 ml [Nss] 250 ml IV NOW
09/25/25 16:00
Electrocardiogram (*1) Urgent
Reason for Study: Chest Pain
09/25/25 16:03
Troponin I Urgent
Abnormal Lab Results
09/25/25
13:16
RBC 3.59 L 10^6/uL
(4.20-5.40)
Hgb 11.3 L g/dL
(12.0-16.0)
Hct 33.6 L %
(37.0-47.0)
MCH 31.5 H pg
(27.0-31.0)
MPV 11.6 H fL
(7.4-10.4)
Absolute Monos (auto) 0.8 H 10^3/uL
(0.1-0.6)
Monocytes % 10.7 H %
(1.7-9.3)
Potassium 2.7 L* mmol/L
(3.5-5.1)
09/25/25 13:16
09/25/25 13:16
Vital Signs
Initial and Last Documented VS:
Initial Vital Signs
BP
178/74
09/25/25 12:33
Last Documented Vital Signs
Temp Pulse Resp BP Pulse Ox
98.3 F 83 21 190/78 95
09/25/25 12:37 09/25/25 17:00 09/25/25 17:00 09/25/25 13:13 09/25/25 17:00
MDM/Problems Addressed
MDM/Problems Addressed:
84-year-old female with history of CAD status post stenting, anxiety, diabetes, hypertension, CHF presenting to the emergency department for episode of chest pain prior to arrival. Vital signs on arrival are significant for high blood pressure.
On exam patient is resting comfortably, notes improvement of her pain, now gone. Notes that the symptoms have been ongoing for the past several months, did see her motor grader operator yesterday. EKG obtained, no significant change from prior. Lower
suspicion for ACS. Suspect possible angina given duration of symptoms. However, patient with known coronary artery disease and additional cardiac risk factors. Will obtain laboratory analysis including troponin. Known history of CHF, however no
present signs of volume overload. Will obtain chest x-ray imaging
14:00 -patient's potassium is low. Will replete. Initial troponin is within normal range. Chest x-ray without significant cardiopulmonary edema. BNP stable. Plan for repeat troponin
17:45 - Repeat troponin within normal range. Patient remains asymptomatic. Repeat EKG reassuring. Feel stable for discharge, however strict return precautions were communicated and patient verbalized understanding
*Pulse Oximetry
SaO2: 97
Oxygen Mode of Delivery: Room air
Patient hypoxic: no
*EKG
Interpreted by ED Provider?: Yes
EKG Intrepretation Date: 09/25/25
EKG Intrepretation Time: 13:17
Interpretation: normal
Comparison EKG: no changes (08/16/25)
Heart Rate: 79
Rate: normal
Rhythm: sinus and PVC's
[place]: normal axis
Interval: normal interval
QRS Pattern: normal QRS
Ischemia: no ischemia
*Critical Care Note
Total Time (30-74mins, 75-104mins- exclusive of procedures): Not Applicable
ED Attending Note
-
Portions of this chart may have been created with voice recognition software.� Occasional wrong word or��sound alike� substitutions may have occurred due to the inherent limitations of voice recognition software.
Discharge Plan
Departure
Prescriptions:
No Action
alendronate [Fosamax] 70 mg Tablet
70 mg PO WE
therapeutic multivitamin Tablet
1 tab PO DAILY
calcium carbonate [Calcium 600] 600 mg calcium (1,500 mg) Tablet
600 mg PO DAILY
sertraline 50 mg Tablet
50 mg PO DAILY
vitamins A,C,M-jrbo-suhfnc 4,296 mcg-226 mg-90 mg Capsule
1 cap PO BID
cholecalciferol (vitamin D3) [Vitamin D3] 50 mcg (2,000 unit) Tablet
50 mcg PO DAILY
aspirin 81 MG tablet,delayed release (DR/EC)
81 mg PO DAILY
ferrous sulfate 325 mg (65 mg iron) tablet
325 mg PO Q48H
levothyroxine [Synthroid] 175 mcg Tablet
137 mcg PO DAILY
metoprolol succinate 50 mg tablet extended release 24 hr
50 mg PO DAILY
cyanocobalamin (vitamin B-12) 1,000 mcg tablet
1,000 mcg PO DAILY
pantoprazole 40 mg tablet,delayed release (DR/EC)
40 mg PO DAILY
docusate sodium 100 mg capsule
100 mg PO BID
spironolactone 25 mg Tablet
12.5 mg PO DAILY Qty: 30 0RF
furosemide 20 mg Tablet
20 mg PO MOWEFR Qty: 30 0RF
cefdinir 300 mg capsule
300 mg PO BID Qty: 8 0RF
atorvastatin [Lipitor] 20 mg Tablet
40 mg PO HS Qty: 0 0RF
Referrals:
UNKNOWN - PT DOES,NOT KNOW [Unknown Provider]
Interventions
Interventions:
*General Assessment Last Done: 09/25/25 12:49
*Neglect/Abuse Screening Last Done: 09/25/25 12:53
*ED COVID-19 Vaccine History Last Done: 09/25/25 12:48
*ED Influenza Vaccine History Last Done: 09/25/25 12:48
[facility] Fall Risk Assessment Tool Last Done: 09/25/25 12:47
*Risk Screen - Suicide (C-SSRS) Last Done: 09/25/25 12:49
ED- Cardiac Assessment Last Done: 09/25/25 12:54
Discharge Date and Time
Print Language: [place]EN[place]
[2025-09-25 13:13] VITALS: BP 190/78
[2025-09-25 13:25] LABS: Hematocrit 33.6 % (37.0-47.0); Hemoglobin 11.3 g/dL (12.0-16.0); Mean Corp Hgb Conc. 33.6 g/dL (33.0-37.0); Mean Corpuscular Volume 93.6 fL (81.0-99.0); Nucleated Red Blood Cells % 0 %; Platelet Count 182 10^3/uL (130-400); Red Cell Dist. Width 13.2 % (11.5-14.5)
[2025-09-25 13:51] LABS: ALT (SGPT) 16 U/L (0-35); AST (SGOT) 25 U/L (14-36); Albumin 4.4 g/dl (3.5-5.0); Alkaline Phosphatase 97 U/L (38-126); Blood Urea Nitrogen 9 mg/dl (7-17); Calcium 9.5 mg/dl (8.4-10.2); Carbon Dioxide 29 mmol/L (22-30); Chloride 103 mmol/L (98-107); Estimated Creatinine Clearance 42 ml/min; Glucose 94 mg/dl (70-99); Potassium 2.7 mmol/L (3.5-5.1); Sodium 139 mmol/L (135-145); Total Protein 7.0 g/dl (6.3-8.2); eGFR > 60.00
[2025-09-25 13:52] LABS: Troponin I 0.022 ng/ml
[2025-09-25] MEDS: KCL 40 MEQ PO (14:13)
[2025-09-25] MEDS: KCL 270 MEQ IV (14:16)
[2025-09-25 16:55] LABS: Troponin I 0.028 ng/ml
== END 2025-09-25 18:20 | disposition home or self-care (01) ==
LOC: EMR 12:28
PROVIDERS: EMERGENCY PHYSICIAN Student in an Organized Health Care Education/Training Program; FAMILY PHYSICIAN Nurse Practitioner Family
DX: R07.9 Chest pain, unspecified (principal); E87.6 Hypokalemia; I49.3 Ventricular premature depolarization; E03.9 Hypothyroidism, unspecified; E11.9 Type 2 diabetes mellitus without complications; E78.00 Pure hypercholesterolemia, unspecified; I11.0 Hypertensive heart disease with heart failure; I50.9 Heart failure, unspecified; I25.10 Atherosclerotic heart disease of native coronary artery without angina pectoris; I25.2 Old myocardial infarction; Z79.82 Long term (current) use of aspirin; Z87.891 Personal history of nicotine dependence; Z95.5 Presence of coronary angioplasty implant and graft
CPT/HCPCS: 99285; 96360; 96361; 71046; 80053; 83880; 84484; 85025; 93005